=== PATIENT | male | born 1950 | race Caucasian/White ===

== ENCOUNTER 2018-01-22 18:07 | Emergency (ER) | payer OTHER, MEDICARE ==
[2018-01-22 19:07] LABS: Urine Bacteria >50 /HPF (NONE SEEN); Urine Culture Reflex Order REFLEXED
[2018-01-22] MEDS ORDERED: MORPHINE 4 MG/ML SYR ONE (19:12)
[2018-01-22] MEDS ORDERED: ONDANSETRON 4 MG/2 ML VIAL ONE (19:12)
[2018-01-22 19:14] LABS: Urine Glucose 2+ (NEG)
[2018-01-22 19:20] LABS: Urine Blood TRACE (NEG); Urine Protein NEGATIVE (NEG)
[2018-01-22 19:30] LABS: Absolute Lymphocytes (CBC) 0.7 K/uL (0.7-4.9); Absolute Neutrophil 13.4 K/uL (1.8-8.0); Basophils % 0.3 % (0-1.3); Eosinophils % 0.3 % (0-4.4); Hematocrit 45.8 % (39.6-49.0); Lymphocytes % 4.5 % (15.3-44.8); MCH 28.2 pg (27.0-35.0); MCV 86.2 fL (80-100); MPV 9.9 fL (7.6-11.3); Monocytes % 6.5 % (3.3-12.3); RBC Red Blood Cell Count 5.31 M/uL (4.33-5.43)
[2018-01-22 19:40] LABS: Potassium 3.7 mEq/L (3.6-5.0)
[2018-01-22 19:46] LABS: Albumin 4.2 g/dL (3.2-5.5); Bilirubin Direct 0.4 mg/dL (0-0.2); Protein, Total 7.4 g/dL (6.0-8.3)
--- NOTE | 2018-01-22 21:24 | ER ---
Nurse's Notes [facility] Name: Rajat Aguero Age: 67 yrs Sex: Male : 1950 Arrival Date: 01/22/2018 Time: 18:10 Bed 23 Private MD: Son Duval Diagnosis: Urinary tract infection, site not specified Presentation: 01/22 18:12 Presenting complaint: Patient states: burning with urination and urinary incontinence la1 since last night with chills. Transition of care: patient was not received from another setting of care. Onset of symptoms was January 22, 2018. Initial Sepsis Screen: Does the patient meet any 2 criteria? No. Patient's initial sepsis screen is negative. Does the patient have a suspected source of infection? No. Patient's initial sepsis screen is negative. Care prior to arrival: None. 18:12 Method Of Arrival: Ambulatory la1 18:12 Acuity: JOSSY 3 la1 Historical: - Allergies: 18:13 No Known Allergies; la1 - PMHx: 18:13 Bydureon Pen Injector; Diabetes - NIDDM; GERD; la1 - Immunization history:: Adult Immunizations up to date. - Social history:: Smoking status: Patient/guardian denies using tobacco. Screenin:30 Abuse screen: Denies threats or abuse. Nutritional screening: No deficits noted. tl3 Tuberculosis screening: No symptoms or risk factors identified. Fall Risk None identified. Assessment: 18:30 General: Appears distressed, uncomfortable, well groomed, well developed, well tl3 nourished, Behavior is calm, cooperative, appropriate for age. Pain: Complains of pain in pelvis. Neuro: Level of Consciousness is awake, alert, obeys commands, Oriented to person, place, time, situation, Appropriate for age. Cardiovascular: Heart tones S1 S2 present Patient's skin is warm and dry. Respiratory: Airway is patent Trachea midline Respiratory effort is even, unlabored, Respiratory pattern is regular, symmetrical. GI: No signs and/or symptoms were reported involving the gastrointestinal system. : Reports urgency, since yesterday urinary frequency. EENT: No signs and/or symptoms were reported regarding the EENT system. Derm: No signs and/or symptoms reported regarding the dermatologic system. Musculoskeletal: No signs and/or symptoms reported regarding the musculoskeletal system. 20:17 Reassessment: Patient appears in no apparent distress at this time. No changes from tl3 previously documented assessment. Patient and/or family updated on plan of care and expected duration. Pain level reassessed. Patient is alert, oriented x 3, equal unlabored respirations, skin warm/dry/pink. pt states that pain med relieved pain somewhat, lights dimmed, no needs or complaints at this time. 22:08 Reassessment: awaiting for abx to complete before discharge. tl3 22:33 Reassessment: Patient appears in no apparent distress at this time. No changes from tl3 previously documented assessment. Patient and/or family updated on plan of care and expected duration. Pain level reassessed. Patient is alert, oriented x 3, equal unlabored respirations, skin warm/dry/pink. Vital Signs: 18:13 BP 126 / 72; Pulse 92; Resp 19; Temp 97.8(TE); Pulse Ox 96% on R/A; Weight 129.27 kg; la1 Height 6 ft. 0 in. (182.88 cm); 20:17 BP 118 / 72; Pulse 86; Resp 16; Pulse Ox 96% ; tl3 22:33 BP 118 / 73; Pulse 84; Resp 18; Pulse Ox 100% on R/A; tl3 18:13 Body Mass Index 38.65 (129.27 kg, 182.88 cm) la1 ED Course: 18:10 Patient arrived in ED. mr 18:10 Son Duval MD is Private Physician. mr 18:13 Triage completed. la1 18:13 Arm band placed on left wrist. la1 18:15 [facility] Sharpe [facility]. cp 18:15 Alonzo Jacobs MD is Attending Physician. cp 18:30 Nery Kendrick, SONJA is Primary Nurse. tl3 18:30 No apparent distress. Awaiting ED provider evaluation. tl3 18:30 Patient has correct armband on for positive identification. Bed in low position. Call tl3 light in reach. Side rails up X 1. Adult w/ patient. 18:30 No provider procedures requiring assistance completed. tl3 18:30 Urine collected: clean catch specimen, clear. tl3 18:33 Urine Microscopic Only Sent. tl3 20:17 Inserted saline lock: 18 gauge in right forearm, using aseptic technique. Blood tl3 collected. 21:10 CT Abd/Pelvis - W/Contrast In Process Unspecified. EDMS 21:10 CT completed. Patient tolerated procedure well. Patient moved to CT. Patient moved back jg1 from CT. 21:22 Rhys Rowe MD is Referral Physician. cp 22:04 Son Duval MD is Referral Physician. cp 22:33 IV discontinued, intact, bleeding controlled, No redness/swelling at site. Pressure tl3 dressing applied. Administered Medications: 19:20 Drug: morphine 4 mg Route: IVP; Site: right forearm; rk2 20:21 Follow up: Response: No adverse reaction; Marked relief of symptoms tl3 19:20 Drug: Zofran 4 mg Route: IVP; Site: right forearm; rk2 20:21 Follow up: Response: No adverse reaction; Marked relief of symptoms tl3 21:53 Drug: Rocephin - (cefTRIAXone) 2 grams Route: IVPB; Infused Over: 30 mins; Site: right tl3 forearm; Delivery: Primary tubing; 22:33 Follow up: IV Status: Completed infusion; IV Intake: 120ml tl3 22:04 CANCELLED (Physician Discretion): LevaQUIN 750 mg PO once cp Intake: 22:33 IV: 120ml; Total: 120ml. tl3 Outcome: 21:24 Discharge ordered by MD. cp 22:04 Discharge ordered by MD. cp 22:33 Discharged to home ambulatory. tl3 22:33 Condition: stable 22:33 Discharge instructions given to patient, family, Instructed on discharge instructions, follow up and referral plans. medication usage, Demonstrated understanding of instructions, follow-up care, medications, Prescriptions given X 3. 22:35 Patient left the ED. tl3 Signatures: Dispatcher [employer] EDFL Ana Mckeon mr Torres Purvi jg1 Jonathan Reagan, RN RN la1 Alonzo Sharpe PA PA cp Rosalinda Guillory RN RN rk2 Nery Kendrick RN RN tl3
--- NOTE | 2018-01-22 21:24 | EDPHYS ---
Physician Documentation [facility] Name: Rajat Aguero Age: 67 yrs Sex: Male : 1950 Arrival Date: 01/22/2018 Time: 18:10 Bed 23 Private MD: Son Duval ED Physician Alonzo Jacobs HPI: 01/22 18:25 This 67 yrs old Male presents to ER via Ambulatory with complaints of Urinary cp Problem. 18:25 The patient presents with abdominal pain in the lower abdomen. cp 18:25 Onset: The symptoms/episode began/occurred yesterday. The symptoms do not radiate. cp Associated signs and symptoms: Pertinent positives: dysuria, Pertinent negatives: blood in stools, constipation, diarrhea, fever, testicular pain, vomiting. The symptoms are described as constant. Modifying factors: the symptoms are aggravated by pressure. Severity of pain: in the emergency department the pain is unchanged despite home interventions. Historical: - Allergies: 18:13 No Known Allergies; la1 - PMHx: 18:13 Bydureon Pen Injector; Diabetes - NIDDM; GERD; la1 - Immunization history:: Adult Immunizations up to date. - Social history:: Smoking status: Patient/guardian denies using tobacco. ROS: 18:30 Constitutional: Positive for chills, Negative for body aches, fever, poor PO intake. cp 18:30 Eyes: Negative for injury, pain, redness, and discharge. cp 18:30 ENT: Negative for drainage from ear(s), ear pain, sore throat, difficulty swallowing, difficulty handling secretions. 18:30 Neck: Negative for pain with movement, pain at rest, stiffness, tenderness. 18:30 Cardiovascular: Negative for chest pain, edema, palpitations. 18:30 Respiratory: Negative for cough, shortness of breath, wheezing. 18:30 Abdomen/GI: Positive for abdominal pain, nausea, of the suprapubic area, Negative for vomiting, diarrhea, constipation, anorexia, black/tarry stool, rectal bleeding. 18:30 Back: Negative for radiated pain. 18:30 : Positive for urinary symptoms, Negative for testicular pain 18:30 MS/extremity: Negative for injury or acute deformity, decreased range of motion, paresthesias. 18:30 Skin: Negative for cellulitis, rash. 18:30 Neuro: Negative for altered mental status, headache, weakness. 18:30 All other systems are negative. Exam: 18:35 Constitutional: The patient appears in no acute distress, alert, awake, cp non-diaphoretic, non-toxic, well developed, well nourished, obese, uncomfortable. 18:35 Head/Face: Normocephalic, atraumatic. cp 18:35 Eyes: Pupils equal round and reactive to light, extra-ocular motions intact. Lids and lashes normal. Conjunctiva and sclera are non-icteric and not injected. Cornea within normal limits. Periorbital areas with no swelling, redness, or edema. ENT: Nares patent. No nasal discharge, no septal abnormalities noted. Tympanic membranes are normal and external auditory canals are clear. Oropharynx with no redness, swelling, or masses, exudates, or evidence of obstruction, uvula midline. Mucous membranes moist. Neck: Trachea midline, no thyromegaly or masses palpated, and no cervical lymphadenopathy. Supple, full range of motion without nuchal rigidity, or vertebral point tenderness. No Meningismus. Chest/axilla: Normal chest wall appearance and motion. Nontender with no deformity. No lesions are appreciated. 18:35 Cardiovascular: Rate: normal, Rhythm: regular, Edema: is not appreciated, JVD: is not appreciated. 18:35 Respiratory: the patient does not display signs of respiratory distress, Respirations: normal, no use of accessory muscles, no retractions, no splinting, no tachypnea, labored breathing, is not present, Breath sounds: are clear throughout, no decreased breath sounds, no stridor, no wheezing. 18:35 Abdomen/GI: Inspection: distension, is not seen, obese Bowel sounds: active, all quadrants, Palpation: soft, in all quadrants, moderate abdominal tenderness, in the right lower quadrant and left lower quadrant, rebound tenderness, is not appreciated, involuntary guarding, is not appreciated. 18:35 Back: pain, is absent, ROM is normal, CVA tenderness, is absent. 18:35 Skin: cellulitis, is not appreciated, no rash present. Vital Signs: 18:13 BP 126 / 72; Pulse 92; Resp 19; Temp 97.8(TE); Pulse Ox 96% on R/A; Weight 129.27 kg; la1 Height 6 ft. 0 in. (182.88 cm); 20:17 BP 118 / 72; Pulse 86; Resp 16; Pulse Ox 96% ; tl3 22:33 BP 118 / 73; Pulse 84; Resp 18; Pulse Ox 100% on R/A; tl3 18:13 Body Mass Index 38.65 (129.27 kg, 182.88 cm) la1 MDM: 18:15 Patient medically screened. cp 19:00 Differential diagnosis: diverticulitis, Prostatitis, Pyelonephritis, Testicular cp Torsion, Ureterolithiasis, urinary tract infection. 22:00 Data reviewed: vital signs, nurses notes, lab test result(s), radiologic studies, CT cp scan. 22:00 Counseling: I had a detailed discussion with the patient and/or guardian regarding: the cp historical points, exam findings, and any diagnostic results supporting the discharge/admit diagnosis, lab results, radiology results, the need for outpatient follow up, a family practitioner, to return to the emergency department if symptoms worsen or persist or if there are any questions or concerns that arise at home. Response to treatment: the patient's symptoms have markedly improved after treatment, and as a result, I will discharge patient. 01/22 18:23 Order name: Urine Microscopic Only; Complete Time: 19:38 cp / 19:38 Interpretation: Normal except: UWBC 5-10; URBC 5-10; UBACT >50; SQEPI 5-10. cp 01/22 18:36 Order name: Amylase, Serum; Complete Time: 20:51 01/22 18:36 Order name: Basic Metabolic Panel; Complete Time: 20:51 01/22 20:52 Interpretation: Normal except: NA 134; CO2 20; GLUC 197; GFR 87. 01/22 18:36 Order name: CBC with Diff; Complete Time: 19:38 cp /12 19:38 Interpretation: Normal except: WBC 15.2; PLT 129; MIMI% 88.4; LYM% 4.5; NEUT A 13.4. 01/22 18:36 Order name: Creatinine for Radiology; Complete Time: 20:51 cp 01/22 20:52 Interpretation: Reviewed. 01/22 18:36 Order name: Hepatic Function; Complete Time: 20:51 cp 01/22 20:52 Interpretation: Normal except: BILIT 2.0; BILID 0.4. cp 01/22 18:36 Order name: Lipase; Complete Time: 20:51 cp 01/22 20:54 Interpretation: LIP 22; Reviewed. cp 01/22 18:45 Order name: Urine Dipstick--Ancillary (enter results); Complete Time: 19:38 ag 01/22 19:39 Interpretation: Normal except: UKET 2+; UBLD TRACE. cp 01/22 19:07 Order name: CT Abd/Pelvis - W/Contrast; Complete Time: 21:38 cp 01/22 19:08 Order name: Urine Culture EDMS 01/22 18:23 Order name: Urine Dipstick-Ancillary (obtain specimen); Complete Time: 18:33 cp 01/22 18:36 Order name: IV Saline Lock; Complete Time: 19:21 cp 01/22 18:36 Order name: Labs collected and sent; Complete Time: 19:21 cp Administered Medications: 19:20 Drug: morphine 4 mg Route: IVP; Site: right forearm; rk2 20:21 Follow up: Response: No adverse reaction; Marked relief of symptoms tl3 19:20 Drug: Zofran 4 mg Route: IVP; Site: right forearm; rk2 20:21 Follow up: Response: No adverse reaction; Marked relief of symptoms tl3 21:53 Drug: Rocephin - (cefTRIAXone) 2 grams Route: IVPB; Infused Over: 30 mins; Site: right tl3 forearm; Delivery: Primary tubing; 22:33 Follow up: IV Status: Completed infusion; IV Intake: 120ml tl3 22:04 CANCELLED (Physician Discretion): LevaQUIN 750 mg PO once cp Disposition: 01/22/18 22:04 Discharged to Home. Impression: Urinary tract infection, site not specified. - Condition is Stable. - Discharge Instructions: Urinary Tract Infection. - Prescriptions for Levaquin 750 mg Oral Tablet - take 1 tablet by ORAL route once daily for 10 days; 10 tablet. Zofran 4 mg Oral Tablet - take 1 tablet by ORAL route every 12 hours As needed; 20 tablet. Tylenol- Codeine #3 300-30 mg Oral Tablet - take 2 tablets by ORAL route every 6 hours As needed; 15 tablet. - Medication Reconciliation Form, Thank You Letter, Antibiotic Education, Prescription Opioid Use form. - Follow up: Son Duval MD; When: 1 - 2 days; Reason: Recheck today's complaints. - Problem is new. - Symptoms have improved. Addendum: 01/24/2018 09:04 Co-signature as Attending Physician, Alonzo Jacobs MD I agree with the assessment and c godinez plan of care. Signatures: Dispatcher [employer] EDAlonzo Levi MD MD cha Attema, Lee, RN RN la1 Alonzo Sharpe PA PA cp Rosalinda Guillory, RN RN rk2 Nery Kendrick RN RN tl3 Corrections: (The following items were deleted from the chart) 01/22 21:24 21:24 01/22/2018 21:24 Discharged to Home. Impression: Unspecified fracture of right cp forearm - Transverse Midshaft of Radius and Ulna. Condition is Stable. Forms are Medication Reconciliation Form, Thank You Letter, Antibiotic Education, Prescription Opioid Use. Follow up: Rhys Rowe; When: 2 - 3 days; Reason: right forearm fracture. Problem is new. Symptoms have improved. cp 22:04 22:03 LevaQUIN 750 mg PO once ordered. cp cp 22:35 22:04 01/22/2018 22:04 Discharged to Home. Impression: Urinary tract infection, site tl3 not specified. Condition is Stable. Forms are Medication Reconciliation Form, Thank You Letter, Antibiotic Education, Prescription Opioid Use. Follow up: Son Duval; When: 1 - 2 days; Reason: Recheck today's complaints. Problem is new. Symptoms have improved. cp
--- NOTE | 2018-01-22 21:36 | RAD REPORT ---
EXAM DESCRIPTION: CT - Abdomen Pelvis W Contrast - 01/22/2018 9:10 pm CLINICAL HISTORY: Abdominal pain, dysuria, incontinence COMPARISON: CT imaging May 2015 TECHNIQUE: Biphasic, helical CT imaging of the abdomen and pelvis was performed following 100 ml non -ionic IV contrast. Oral contrast was given. All CT scans are performed using dose optimization technique as appropriate and may include automated exposure control or mA/KV adjustment according to patient size. FINDINGS: No suspicious findings in the lung bases. Liver shows diffuse fatty infiltration with no focal liver lesion. Spleen and pancreas show no suspic ious findings. Cholecystectomy clips are present with normal size biliary tree. Symmetric renal function is seen with no hydronephrosis or suspicious renal mass. No pyelonephritis o r acute renal parenchymal process. No abnormal perinephric stranding. Adrenal glands are unremarkable . Urinary bladder is mostly contracted. The urinary bladder is partially obscured. 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 There is a minimal amount of strand ing in the fat adjacent to the dome of the urinary bladder. No dilated bowel loops or bowel wall thickening. No appendicitis. An acute GI process is not identifi ed. Portions of the distal rectum are obscured by the hip prosthesis spray artifact. No free air, helene e fluid or pneumatosis. No mass or bulky lymphadenopathy. No suspicious bony findings. IMPRESSION: No pyelonephritis or acute renal parenchymal process. No hydronephrosis or obstructing c alculus. Urinary bladder is mostly contracted limiting detail. Detail is further limited by bilateral hip pros thesis spray artifact. Cystitis or prostatitis are not excluded. No acute GI process identifiable. Pronounced fatty infiltration of the liver.
[2018-01-22] MEDS ORDERED: CEFTRIAXONE 1000 MG/VIAL ONE (21:47)
[2018-01-22 22:41] VITALS: TEMP 97.8
[2018-01-22 22:43] VITALS: BP 118/73; O2SAT 100
== END 2018-01-22 22:35 | disposition home or self-care (01) ==
LOC: ER 18:07
DX: N39.0 Urinary tract infection, site not specified (principal); E11.9 Type 2 diabetes mellitus without complications
CPT/HCPCS: 36415; 74177; 80048; 80076; 82150; 83690; 85025; 87077; 87086; 87088; 87186; 96365; 96375; 99284; J2405; Q9967; 81003; 81015

== ENCOUNTER 2019-06-09 18:10 | Emergency (ER) | payer OTHER, MEDICARE ==
--- NOTE | 2019-06-09 18:54 | EDPHYS ---
Physician Documentation [facility] Name: Rajat Aguero Age: 68 yrs Sex: Male : 1950 Arrival Date: 06/09/2019 Time: 18:14 Bed 23 Private MD: Son Duval ED Physician Hill Danielle HPI: 06/09 18:41 This 68 yrs old Male presents to ER via Ambulatory with complaints of kb Infected toe. 18:44 The patient presents with an abrasion, an injury, pain, that is acute, tenderness. The kb complaints affect the left first toe. Context: The problem was sustained at home, resulted from stubbing toe on furniture. the patient can fully bear weight, the patient is able to ambulate. Onset: The symptoms/episode began/occurred 3 day(s) ago. 18:46 Modifying factors: The symptoms are alleviated by nothing, the symptoms are aggravated kb by nothing. Associated signs and symptoms: Pertinent positives: swelling. Severity of symptoms: At their worst the symptoms were moderate, in the emergency department the symptoms are unchanged. The patient has not experienced similar symptoms in the past. The patient has not recently seen a physician. Pt reports he stubbed his toe on a piece of furniture 3 days ago resulting in an abrasion to top of toe. Today noticed redness to toe and black under the nail. Pain/tenderness to outer area of toe. Historical: - Allergies: 18:27 No Known Allergies; aj1 - Home Meds: 18:27 Bydureon subcutaneous subcutaneous [Active]; metformin 1,000 mg Oral tr24 2 tabs once aj1 daily [Active]; lansoprazole 30 mg Oral cpDR 1 cap once daily [Active]; Jardiance 25 mg oral tab 1 tab once daily [Active]; Cholestyramine Light 4 gram oral pwpk 1 packet once daily [Active]; gabapentin 100 mg oral cap 1 caps as needed at bedtime [Active]; Nasonex 50 mcg/actuation Nasal spry 2 sprays once daily [Active]; clobetasol 0.05 % Topical crea as needed [Active]; multivitamin oral oral daily [Active]; quecertin 500 mg [Active]; L-Lysine Oral 1,000 mg [Active]; - PMHx: 18:27 Diabetes - NIDDM; GERD; aj1 - 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 - Social history:: Smoking status: Patient/guardian denies using tobacco. - Ebola Screening: : Patient denies travel to an Ebola-affected area in the 21 days before illness onset. ROS: 18:49 Constitutional: Negative for fever, chills, and weight loss, ENT: Negative for injury, kb pain, and discharge, Neck: Negative for injury, pain, and swelling, Cardiovascular: Negative for chest pain, palpitations, and edema, Respiratory: Negative for shortness of breath, cough, wheezing, and pleuritic chest pain, Abdomen/GI: Negative for abdominal pain, nausea, vomiting, diarrhea, and constipation, Back: Negative for injury and pain, Neuro: Negative for headache, weakness, numbness, tingling, and seizure. 18:49 Skin: Positive for erythema, swelling, of the left first toe. Exam: 18:49 Constitutional: This is a well developed, well nourished patient who is awake, alert, kb and in no acute distress. Head/Face: Normocephalic, atraumatic. Chest/axilla: Normal chest wall appearance and motion. Nontender with no deformity. No lesions are appreciated. Cardiovascular: Regular rate and rhythm with a normal S1 and S2. No gallops, murmurs, or rubs. Normal PMI, no JVD. No pulse deficits. Respiratory: Lungs have equal breath sounds bilaterally, clear to auscultation and percussion. No rales, rhonchi or wheezes noted. No increased work of breathing, no retractions or nasal flaring. Abdomen/GI: Soft, non-tender, with normal bowel sounds. No distension or tympany. No guarding or rebound. No evidence of tenderness throughout. Neuro: Awake and alert, GCS 15, oriented to person, place, time, and situation. Cranial nerves II-XII grossly intact. Motor strength 5/5 in all extremities. Sensory grossly intact. Cerebellar exam normal. Normal gait. 18:49 Musculoskeletal/extremity: Weight bearing: able to fully bear weight, Nails: Subungual hematoma, of the left first toe. 18:49 Skin: cellulitis, that is minimal, on the left first toe, injury, abrasion(s), very small abrasion noted, of the left first toe. Vital Signs: 18:27 BP 141 / 78; Pulse 72; Resp 18; Temp 97.2; Pulse Ox 98% on R/A; Weight 131.54 kg (R); aj1 Height 6 ft. 0 in. (182.88 cm) (R); Pain 3/10; 19:00 BP 140 / 70; Pulse 71; Resp 18; Temp 97.5; Pulse Ox 100% on R/A; mg2 18:27 Body Mass Index 39.33 (131.54 kg, 182.88 cm) aj1 MDM: 18:29 Patient medically screened. kb 18:42 Data reviewed: vital signs, nurses notes. Data interpreted: Pulse oximetry: on room air kb is 98 %. Interpretation: normal. Counseling: I had a detailed discussion with the patient and/or guardian regarding: the historical points, exam findings, and any diagnostic results supporting the discharge/admit diagnosis, the need for outpatient follow up, a family practitioner, to return to the emergency department if symptoms worsen or persist or if there are any questions or concerns that arise at home. ED course: subungual hematoma drained by making small hole in top of nail with 18G needle. Administered Medications: 19:02 Drug: Bactrim (160 mg-800 mg (DS) 1 tablet Route: PO; mg2 19:03 Follow up: Response: No adverse reaction; Medication administered at discharge. mg2 19:02 Drug: KeFLEX 500 mg Route: PO; mg2 19:02 Follow up: Response: No adverse reaction; Medication administered at discharge. mg2 Disposition: 06/09/19 18:53 Discharged to Home. Impression: Abrasion of toe, Local infection of the skin and subcutaneous tissue, unspecified, Subungual hematoma. - Condition is Stable. - Discharge Instructions: Cellulitis, Adult, [id number], Wound Infection, [id number], Subungual Hematoma, [id number]. - Prescriptions for Bactrim DS 800- 160 mg Oral Tablet - take 1 tablet by ORAL route every 12 hours for 7 days; 14 tablet. Keflex 500 mg Oral Capsule - take 1 capsule by ORAL route every 8 hours for 7 days; 21 capsule. - Medication Reconciliation Form, Thank You Letter, Antibiotic Education, Prescription Opioid Use form. - Follow up: Private Physician; When: 2 - 3 days; Reason: Recheck today's complaints, Continuance of care, Re-evaluation by your physician. Follow up: Emergency Department; When: As needed; Reason: Worsening of condition. Addendum: 06/12/2019 06:59 Co-signature as Attending Physician, Hill Danielle MD. r n Signatures: Jocelyne Bella, NURIS-C TOOL CRIB SUPERVISOR-Ckb Tatyana Argueta RN RN aj1 Hill Danielle MD MD rn Gardose, Michele, RN RN mg2 Corrections: (The following items were deleted from the chart) 06/09 18:49 18:44 Onset: The symptoms/episode began/occurred 2 day(s) ago, kb kb 18:50 18:46 Pt reports he stubbed his toe on a piece of furniture 3 days ago resulting in an kb abrasion to top of toe. Today noticed redness to toe and black under the nail. . kb 19:03 18:53 06/09/2019 18:53 Discharged to Home. Impression: Abrasion of toe; Local infection mg2 of the skin and subcutaneous tissue, unspecified; Subungual hematoma. Condition is Stable. Forms are Medication Reconciliation Form, Thank You Letter, Antibiotic Education, Prescription Opioid Use. Follow up: Private Physician; When: 2 - 3 days; Reason: Recheck today's complaints, Continuance of care, Re-evaluation by your physician. Follow up: Emergency Department; When: As needed; Reason: Worsening of condition. kb
--- NOTE | 2019-06-09 18:54 | ER ---
Nurse's Notes [facility] Name: Rajat Aguero Age: 68 yrs Sex: Male : 1950 Arrival Date: 06/09/2019 Time: 18:14 Bed 23 Private MD: Son Duval Diagnosis: Abrasion of toe;Local infection of the skin and subcutaneous tissue, unspecified;Subungual hematoma Presentation: 06/09 18:22 Presenting complaint: Patient states: He kicked something with his left great toe 3 aj1 days ago, he got a small cut to the toe, and its been tender since then. Yesterday he noticed bruising to the toe and today he noticed redness and swelling. Denies fever. Transition of care: patient was not received from another setting of care. Onset of symptoms was June 09, 2019. Risk Assessment: Do you want to hurt yourself or someone else? Patient reports no desire to harm self or others. Initial Sepsis Screen: Does the patient meet any 2 criteria? No. Patient's initial sepsis screen is negative. Does the patient have a suspected source of infection? Yes: Skin breakdown/wound. Care prior to arrival: None. 18:22 Method Of Arrival: Ambulatory aj1 18:22 Acuity: JOSSY 4 aj1 Triage Assessment: 18:27 General: Appears in no apparent distress. comfortable, Behavior is calm, cooperative, aj1 appropriate for age. Pain: Complains of pain in left first toe Pain currently is 3 out of 10 on a pain scale. Neuro: Level of Consciousness is awake, alert, obeys commands. Cardiovascular: Patient's skin is warm and dry. Respiratory: Airway is patent Respiratory effort is even, unlabored, Respiratory pattern is regular, symmetrical. Historical: - Allergies: 18:27 No Known Allergies; aj1 - Home Meds: 18:27 Bydureon subcutaneous subcutaneous [Active]; metformin 1,000 mg Oral tr24 2 tabs once aj1 daily [Active]; lansoprazole 30 mg Oral cpDR 1 cap once daily [Active]; Jardiance 25 mg oral tab 1 tab once daily [Active]; Cholestyramine Light 4 gram oral pwpk 1 packet once daily [Active]; gabapentin 100 mg oral cap 1 caps as needed at bedtime [Active]; Nasonex 50 mcg/actuation Nasal spry 2 sprays once daily [Active]; clobetasol 0.05 % Topical crea as needed [Active]; multivitamin oral oral daily [Active]; quecertin 500 mg [Active]; L-Lysine Oral 1,000 mg [Active]; - PMHx: 18:27 Diabetes - NIDDM; GERD; aj1 - 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 - Social history:: Smoking status: Patient/guardian denies using tobacco. - Ebola Screening: : Patient denies travel to an Ebola-affected area in the 21 days before illness onset. Screenin:44 Abuse screen: Denies threats or abuse. Denies injuries from another. Nutritional mg2 screening: No deficits noted. Tuberculosis screening: No symptoms or risk factors identified. Fall Risk None identified. Assessment: 18:43 General: Appears in no apparent distress. comfortable, Behavior is calm, cooperative. mg2 Pain: Complains of pain in left first toe Pain does not radiate. Pain currently is 3 out of 10 on a pain scale. Quality of pain is described as aching, Pain began gradually, 2-3 days ago. Is intermittent. Neuro: Level of Consciousness is awake, alert, obeys commands, Oriented to person, place, time, situation. Cardiovascular: Capillary refill < 3 seconds Patient's skin is warm and dry. Respiratory: Airway is patent Respiratory effort is even, unlabored, Respiratory pattern is regular, symmetrical. GI: No signs and/or symptoms were reported involving the gastrointestinal system. : No signs and/or symptoms were reported regarding the genitourinary system. EENT: No signs and/or symptoms were reported regarding the EENT system. Derm: Skin is intact, is healthy with good turgor, Skin is pink, warm \T\ dry. normal, redness surrounding the left big toe. Musculoskeletal: Circulation, motion, and sensation intact. Capillary refill < 3 seconds. Vital Signs: 18:27 BP 141 / 78; Pulse 72; Resp 18; Temp 97.2; Pulse Ox 98% on R/A; Weight 131.54 kg (R); aj1 Height 6 ft. 0 in. (182.88 cm) (R); Pain 3/10; 19:00 BP 140 / 70; Pulse 71; Resp 18; Temp 97.5; Pulse Ox 100% on R/A; mg2 18:27 Body Mass Index 39.33 (131.54 kg, 182.88 cm) aj1 ED Course: 18:14 Patient arrived in ED. mr 18:15 Son Duval MD is Private Physician. mr 18:23 Triage completed. aj1 18:24 Jocelyne Bella F[facility]-C [facility]. kb 18:24 Hill Danielle MD is Attending Physician. kb 18:27 Arm band placed on Patient placed in an exam room. aj1 18:30 Sourav Ferrera, RN is Primary Nurse. mg2 18:44 No provider procedures requiring assistance completed. Patient did not have IV access mg2 during this emergency room visit. Wound care: boring a small hole was done in the left big toe to expressed blood underneath the toe done by the provider. . patient tolerated. dressing with betadine and band aid done.. 18:46 Patient has correct armband on for positive identification. mg2 Administered Medications: 19:02 Drug: Bactrim (160 mg-800 mg (DS) 1 tablet Route: PO; mg2 19:03 Follow up: Response: No adverse reaction; Medication administered at discharge. mg2 19:02 Drug: KeFLEX 500 mg Route: PO; mg2 19:02 Follow up: Response: No adverse reaction; Medication administered at discharge. mg2 Outcome: 18:53 Discharge ordered by . kb 19:03 Discharged to home ambulatory. mg2 19:03 Condition: stable 19:03 Discharge instructions given to patient, Instructed on discharge instructions, follow up and referral plans. Demonstrated understanding of instructions, follow-up care, medications. 19:03 Patient left the ED. mg2 Signatures: Jocelyne Bella FNP-C FNP-Tatyana Melo, RN RN aj1 Sera Mckeon mr Sourav Ferrera, SONJA RN mg2
[2019-06-09] MEDS ORDERED: SMZ./TMP. 800/160 MG TABLET ONE (18:58)
[2019-06-09] MEDS ORDERED: CEPHALEXIN 250 MG CAP ONE (18:59)
[2019-06-09 19:26] VITALS: BP 140/70; TEMP 97.5; O2SAT 100
== END 2019-06-09 19:03 | disposition home or self-care (01) ==
LOC: ER 18:10
PROC: 0H9RXZZ Drainage of Toe Nail, External Approach (ICD-10-PCS; principal; 2019-06-09)
DX: S90.212A Contusion of left great toe with damage to nail, initial encounter (principal); L08.9 Local infection of the skin and subcutaneous tissue, unspecified; W22.03XA Walked into furniture, initial encounter; Y93.9 Activity, unspecified; Y92.009 Unspecified place in unspecified non-institutional (private) residence as the place of occurrence of the external cause; E11.9 Type 2 diabetes mellitus without complications
CPT/HCPCS: 99283

== ENCOUNTER 2019-08-31 18:35 | Emergency (ER) | payer OTHER, MEDICARE ==
[2019-08-31] MEDS ORDERED: BUPIVACAINE 0.5% PF 10 ML VIAL ONE (18:45)
[2019-08-31] MEDS ORDERED: LIDOCAINE 1% MPF 5 ML VIAL ONE (18:46)
--- NOTE | 2019-08-31 19:24 | RAD REPORT ---
EXAM DESCRIPTION: RAD - Hand Left 3 View - 08/31/2019 7:11 pm CLINICAL HISTORY: PAIN COMPARISON: No comparisons FINDINGS: Dislocation is seen involving the PIP joint of the fifth finger. Small avulsion fracture i s present in the region as well.
[2019-08-31 20:25] LABS: Absolute Lymphocytes (CBC) 2.1 K/uL (0.7-4.9); Basophils % 0.8 % (0-1.3); Hematocrit 45.3 % (39.6-49.0); Lymphocytes % 31.4 % (15.3-44.8); MPV 9.9 fL (7.6-11.3); RBC Red Blood Cell Count 5.29 M/uL (4.33-5.43)
[2019-08-31] MEDS ORDERED: CEFAZOLIN/SWI 1gm 1 GM/10 ML SYR ONE (20:36)
[2019-08-31 20:42] LABS: Potassium 3.9 mmol/L (3.5-5.1)
--- NOTE | 2019-08-31 20:53 | ER ---
Nurse's Notes [facility] Name: Rajat Aguero Age: 68 yrs Sex: Male : 1950 Arrival Date: 08/31/2019 Time: 18:36 Bed 24 Private MD: Son Duval Diagnosis: Laceration without foreign body of left little finger without damage to nail;Dislocation of proximal interphalangeal joint of left little finger-with avulsion fracture Presentation: 08/31 18:42 Presenting complaint: Patient states: L fifth digit pain and laceration that occurred ss after tripping this evening. Transition of care: patient was not received from another setting of care. Onset of symptoms was August 31, 2019. Risk Assessment: Do you want to hurt yourself or someone else? Patient reports no desire to harm self or others. Initial Sepsis Screen: Does the patient meet any 2 criteria? No. Patient's initial sepsis screen is negative. Does the patient have a suspected source of infection? No. Patient's initial sepsis screen is negative. Care prior to arrival: None. 18:42 Method Of Arrival: Ambulatory ss 18:42 Acuity: JOSSY 4 ss Triage Assessment: 21:43 Injury Description: Laceration. tr5 Historical: - Allergies: 18:45 No Known Allergies; ss - PMHx: 18:45 Diabetes - NIDDM; GERD; ss - PSHx: 18:45 2 atrificial hip joints; Cholecystectomy; ss - Immunization history:: Adult Immunizations up to date. - Social history:: Smoking status: Patient/guardian denies using tobacco. - Ebola Screening: : Patient denies exposure to infectious person Patient denies travel to an Ebola-affected area in the 21 days before illness onset. Screenin:48 Abuse screen: Denies threats or abuse. Nutritional screening: No deficits noted. tr5 Tuberculosis screening: No symptoms or risk factors identified. Fall Risk None identified. Assessment: 18:48 General: Appears uncomfortable, Behavior is calm, cooperative, appropriate for age. tr5 Pain: Complains of pain in L 5th digit. Neuro: Level of Consciousness is awake, alert, obeys commands, Oriented to person, place, time, Chronometer Assembler And Adjuster are equal bilaterally Moves all extremities. Cardiovascular: Heart tones present Capillary refill < 3 seconds Pulses are all present. Respiratory: Airway is patent Respiratory effort is even, unlabored, Respiratory pattern is regular, symmetrical. GI: No signs and/or symptoms were reported involving the gastrointestinal system. : No signs and/or symptoms were reported regarding the genitourinary system. EENT: No signs and/or symptoms were reported regarding the EENT system. Derm: No signs and/or symptoms reported regarding the dermatologic system. Musculoskeletal: Swelling present in left hand, 5th digit. Vital Signs: 18:45 BP 94 / 75; Pulse 76; Resp 16; Pulse Ox 98% on R/A; Weight 131.54 kg; Height 6 ft. 0 ss in. (182.88 cm); Pain 7/10; 18:59 Temp 98.9(O); jp3 18:45 Body Mass Index 39.33 (131.54 kg, 182.88 cm) ss ED Course: 18:36 Patient arrived in ED. ag5 18:37 Son Duval MD is Private Physician. ag5 18:38 Jocelyne Bella FNP-C [facility]. kb 18:38 Hill Danielle MD is Attending Physician. kb 18:42 Gonzalez Mcleod RN is Primary Nurse. tr5 18:44 Triage completed. ss 18:45 Arm band placed on right wrist. ss 18:48 Bed in low position. Call light in reach. Side rails up X 1. tr5 19:00 Patient maintains SpO2 saturation greater than 95% on room air. jp3 19:09 Hand Left 3 View XRAY In Process Unspecified. EDMS 19:40 Wound care: to laceration located on palmar aspect of proximal phalanx of left little jp3 finger was soaked in 50/50 betadine and normal saline Patient tolerated well. 21:15 Assist provider with laceration repair. tr5 21:42 Patient did not have IV access during this emergency room visit. tr5 Administered Medications: 18:45 Drug: Lidocaine (1 %) 1 vials Volume: 5 ml; Route: Infiltration; tr5 18:45 Drug: Marcaine (0.5 %) 1 vials Volume: 10 ml; Route: Infiltration; tr5 20:35 Drug: Ancef 1 grams Route: IVPB; Site: right antecubital; tr5 Outcome: 21:42 Discharged to home ambulatory. tr5 21:42 Condition: stable 21:42 Discharge instructions given to patient, family, Instructed on discharge instructions, follow up and referral plans. 21:44 Patient left the ED. tr5 Signatures: Dispatcher [employer] Jocelyne Quinteros, BLAIR LAWLER-Stacy Sharma RN RN Damaso Capone 3 Arnel Shane5 Gonzalez Mcleod RN RN tr5
--- NOTE | 2019-08-31 20:53 | EDPHYS ---
Physician Documentation [facility] Name: Rajat Aguero Age: 68 yrs Sex: Male : 1950 Arrival Date: 08/31/2019 Time: 18:36 Bed 24 Private MD: Son Duval ED Physician Hill Danielle HPI: 08/31 19:12 This 68 yrs old Male presents to ER via Ambulatory with complaints of Hand kb Injury, Fall Injury. 19:12 The patient or guardian reports decreased range of motion, deformity, injury, a kb laceration, irregular, 3 cm(s), pain, swelling, tenderness. The complaints affect the palmar aspect of proximal phalanx of left little finger. Context: The problem was sustained at home, resulted from a fall, while walking. Onset: The symptoms/episode began/occurred just prior to arrival. Modifying factors: The symptoms are alleviated by nothing, the symptoms are aggravated by movement. Associated signs and symptoms: The patient has no apparent associated signs or symptoms. Severity of symptoms: At their worst the symptoms were moderate, in the emergency department the symptoms are unchanged. The patient has not experienced similar symptoms in the past. The patient has not recently seen a physician. Pt reports his house is under construction so there is equipment and materials out. Turned off the light and walked towards the door to leave, tripped and fell. Reports laceration and deformity to left pinky finger. . Historical: - Allergies: 18:45 No Known Allergies; ss - PMHx: 18:45 Diabetes - NIDDM; GERD; ss - PSHx: 18:45 2 atrificial hip joints; Cholecystectomy; ss - Immunization history:: Adult Immunizations up to date. - Social history:: Smoking status: Patient/guardian denies using tobacco. - Ebola Screening: : Patient denies exposure to infectious person Patient denies travel to an Ebola-affected area in the 21 days before illness onset. ROS: 19:08 Constitutional: Negative for fever, chills, and weight loss, ENT: Negative for injury, kb pain, and discharge, Neck: Negative for injury, pain, and swelling, Cardiovascular: Negative for chest pain, palpitations, and edema, Respiratory: Negative for shortness of breath, cough, wheezing, and pleuritic chest pain, Abdomen/GI: Negative for abdominal pain, nausea, vomiting, diarrhea, and constipation, Back: Negative for injury and pain, Neuro: Negative for headache, weakness, numbness, tingling, and seizure. 19:08 MS/extremity: Positive for injury or acute deformity, decreased range of motion, deformity, laceration, pain, swelling, tenderness, of the palmar aspect of proximal phalanx of left little finger. Exam: 19:11 Constitutional: This is a well developed, well nourished patient who is awake, alert, kb and in no acute distress. Head/Face: Normocephalic, atraumatic. ENT: Nares patent. No nasal discharge, no septal abnormalities noted. Tympanic membranes are normal and external auditory canals are clear. Oropharynx with no redness, swelling, or masses, exudates, or evidence of obstruction, uvula midline. Mucous membranes moist. Neck: Trachea midline, no thyromegaly or masses palpated, and no cervical lymphadenopathy. Supple, full range of motion without nuchal rigidity, or vertebral point tenderness. No Meningismus. Chest/axilla: Normal chest wall appearance and motion. Nontender with no deformity. No lesions are appreciated. Cardiovascular: Regular rate and rhythm with a normal S1 and S2. No gallops, murmurs, or rubs. Normal PMI, no JVD. No pulse deficits. Respiratory: Lungs have equal breath sounds bilaterally, clear to auscultation and percussion. No rales, rhonchi or wheezes noted. No increased work of breathing, no retractions or nasal flaring. Abdomen/GI: Soft, non-tender, with normal bowel sounds. No distension or tympany. No guarding or rebound. No evidence of tenderness throughout. Neuro: Awake and alert, GCS 15, oriented to person, place, time, and situation. Cranial nerves II-XII grossly intact. Motor strength 5/5 in all extremities. Sensory grossly intact. Cerebellar exam normal. Normal gait. 19:11 Musculoskeletal/extremity: Extremities: grossly normal except: noted in the palmar aspect of proximal phalanx of left little finger: decreased ROM, deformity, laceration, pain, swelling, tenderness, ROM: limited active range of motion, in the left little finger, Circulation is intact in all extremities. Sensation intact. Vital Signs: 18:45 BP 94 / 75; Pulse 76; Resp 16; Pulse Ox 98% on R/A; Weight 131.54 kg; Height 6 ft. 0 ss in. (182.88 cm); Pain 7/10; 18:59 Temp 98.9(O); jp3 18:45 Body Mass Index 39.33 (131.54 kg, 182.88 cm) ss Procedures: 19:03 Nerve block: (digital) of palmar aspect of proximal phalanx of left little finger kb Medication: Lidocaine 1% without epinephrine Marcaine 0.5%, Amount: 4 mls were injected, Effect: the patient has resolution of the pain, Set up for procedure. Performed by Jocelyne LAWLER-Kenroy Patient tolerated well. 19:25 Reduction: of the PIP of left little finger, using traction, Patient tolerated well. kb dislocated once traction was released.. Laceration: 21:13 Wound Repair of 3cm ( 1.2in ) subcutaneous laceration to palmar aspect of proximal kb phalanx of left little finger. Irregularly shaped.. Distal neuro/vascular/tendon intact. Anesthesia: Digital block administered with 1% lidocaine. Wound prep: Extensive cleansing with betadine by apartment maintenance technician, Wound irrigation with saline by apartment maintenance technician. Skin closed with 4 4-0 Prolene using simple sutures and sterile technique. Dressed with non-adherent dressing, finger splint. Patient tolerated well. MDM: 18:41 Patient medically screened. kb 19:03 Data reviewed: vital signs, nurses notes. Data interpreted: Pulse oximetry: on room air kb is 98 %. Interpretation: normal. 19:26 ED course: Call placed to Dr Bender with [facility], pt has seen this hand kb surgeon in the past and would like to see him for this injury as well. [phone]. Message left with call service, awaiting callback . 19:30 ED course: MELLISA Bai with Dr Bender's office called back. Dr Bender is not a hand kb specialist and [place] also [place] the [place] so unavailable for this case. . 19:35 Physician consultation: Florentino Nowak MD was contacted at 19:47, regarding consult, kb patient's condition, and will see patient in inpatient room, tomorrow, NPO after midnight, will see pt for surgery in the morning. 19:45 ED course: Daughter requested we call another hand specialist to get a "second kb opinion." Would like to know if this is surgery is something that should wait until the morning and be delayed. Informed daughter that this is something that is often done the next day, but she is insistent on having a second opinion from an "active hand specialist at [place] or the orthopedic hospital." Transfer initiated to facilitate daughter's request. Will discuss case with hand specialist. . 20:12 Physician consultation: Son Duval MD was contacted at 20:08, regarding admission, kb to the medical/surgical unit. ED course: Discussed case with [place] hand specialist, Dr Liu. Agrees that this is an urgent, but not emergent case and it would be done in the morning, but not tonight. Family informed of this . 20:16 ED course: Pt's daughter spoke to Eulogio Shen at [facility] that is willing to do kb the surgery in the morning as well. Wants pt to be at his office at 0730. Requests prescription for antibiotics and wants to leave here AMA to be there in the morning. 21:12 ED course: Dr Duval and Dr Nowak contacted to inform them of pt decision to leave kb AMA. . 21:14 ED course: Sutures placed to keep wound closed until surgery in the morning. kb 08/31 20:03 Order name: CBC with Diff; Complete Time: 20:48 kb 08/31 20:03 Order name: Basic Metabolic Panel; Complete Time: 20:48 kb 08/31 18:42 Order name: Hand Left 3 View XRAY; Complete Time: 19:27 kb 08/31 20:03 Order name: IV Start; Complete Time: 20:51 kb Administered Medications: 18:45 Drug: Lidocaine (1 %) 1 vials Volume: 5 ml; Route: Infiltration; tr5 18:45 Drug: Marcaine (0.5 %) 1 vials Volume: 10 ml; Route: Infiltration; tr5 20:35 Drug: Ancef 1 grams Route: IVPB; Site: right antecubital; tr5 Disposition: 09/01 07:17 Co-signature as Attending Physician, Hill Danielle MD. rn Disposition: 08/31/19 20:51 Patient has left against medical advice. Impression: Laceration without foreign body of left little finger without damage to nail, Dislocation of proximal interphalangeal joint of left little finger - with avulsion fracture. - Patients states they are going to Home. - Condition is Stable. - Discharge Instructions: Finger Fracture, [id number], Laceration Care, Adult, [id number], Finger or Thumb Dislocation, [id number]. - Prescriptions for Keflex 500 mg Oral Capsule - take 1 capsule by ORAL route every 8 hours for 10 days; 30 capsule. Follow up: Emergency Department; When: As needed; Reason: Worsening of condition. Follow up: Private Physician; When: 2 - 3 days; Reason: Recheck today's complaints, Continuance of care, Re-evaluation by your physician. - Problem is new. - Symptoms are unchanged. Signatures: Dispatcher [employer] EDMS Jocelyne Bella, TENNIS BALL COVER CEMENTER-C TENNIS BALL COVER CEMENTER-Ckb Hill Danielle MD MD rn Smirch, Shelby, RN RN ss Rodriguez, Tommie, RN RN tr5 Corrections: (The following items were deleted from the chart) 08/31 20:49 20:16 ED course: Pt's daughter spoke to Eulogio Shen at [facility] that is willing to do the surgery in the morning as well. Wants pt to be at his office at 0730. Requests prescription for antibiotics. kb 21:44 20:51 08/31/2019 20:51 Patients has left against medical advice. Impression: Laceration tr5 without foreign body of left little finger without damage to nail; Dislocation of proximal interphalangeal joint of left little finger - with avulsion fracture. Patient states they are going to Home. Condition is Stable. Follow up: Emergency Department; When: As needed; Reason: Worsening of condition. Follow up: Private Physician; When: 2 - 3 days; Reason: Recheck today's complaints, Continuance of care, Re-evaluation by your physician. Problem is new. Symptoms are unchanged. kb
[2019-08-31 21:55] VITALS: BP 94/75; O2SAT 98
[2019-08-31 21:56] VITALS: TEMP 98.9
== END 2019-08-31 21:44 | disposition left against medical advice (07) ==
LOC: ER 18:35
PROC: 0JQK0ZZ Repair Left Hand Subcutaneous Tissue and Fascia, Open Approach (ICD-10-PCS; principal; 2019-08-31)
PROC: 0PSVXZZ Reposition Left Finger Phalanx, External Approach (ICD-10-PCS; 2019-08-31)
DX: S63.287A Dislocation of proximal interphalangeal joint of left little finger, initial encounter (principal); W19.XXXA Unspecified fall, initial encounter; Y93.01 Activity, walking, marching and hiking; Y92.9 Unspecified place or not applicable
CPT/HCPCS: 85025; 80048; 36415; 73130; 64450; 96374; 99284; 12002; 26742; J0690

== ENCOUNTER 2020-08-18 04:09 | Observation (INO) | payer OTHER, MEDICARE ==
--- OUTSIDE RECORDS SUMMARY | 2020-08-18 04:14 | XMS REPORT | Continuity of Care Document ---
:1950 Author Organization [facility] t Address [address] [place] [address] Care Team Providers Name Role Phone Twan Bender Attending Clinician Twan Bender Admitting Clinician Payers Payer Name Policy Type Policy Number Effective Date Expiration Date S ource Problems Condition Condition Condition Status Onset Resolution Last Treating Co mments Source Name Details Category Date Date Treatment Clinician Date Carcinoma Problem Active 2018-08-31 Me moria of 02-11 05:00:37 l prostate 00:00: Sacha (disorder) Carcinoma 00 of prostate (disorder) Active 02/12/2016 Problem 08/31/2018 NO XRTno tx at this time, urologist does bld wk every 3 mo watching psa level, pt says last psa was 7 [facility] Acquired Problem Active 2018-08-31 Mem oria trigger 6 05:00:37 l finger Acquired 00:00: Andre n (disorder) trigger 00 finger (disorder) Active 02/12/2016 Problem 08/31/2018 left middle fingerleft fourth finger [facility] Diabetes Problem Active 2018-08-31 Mem oria mellitus - 05:00:37 l (disorder) Diabetes 00:00: Volodymyr santamaria mellitus 00 (disorder) Active 09/13/2006 Problem 08/31/2018 bS range < 150HGB A1C 8.2fbs 120-150, 2 oral meds and bydureon pen q wednesday [facility] Sleep Problem Active 2018-08-31 Memor ia apnea 1-01 05:00:37 l (finding) Sleep 00:00: Nadre n apnea 00 (finding) Active 09/13/2006 Problem 08/31/2018 uses cpap [facility] Gastroesop Problem Active 2018-08-31 M emoria hageal 05:00:37 l reflux [place] disease Gastroesop (disorder) hageal reflux disease (disorder) Active Problem 08/31/2018 med x1 [facility] Loose body Problem Active 2018-08-31 M emoria (morpholog 05:00:37 l ic Loose [place] abnormalit body y) (morpholog ic abnormalit y) Active Problem 8 left elbow [facility] Scab of Problem Active 2018-08-31 Talon althea skin 05:00:37 l (disorder) Scab of Her quiroz skin (disorder) Active Problem 08/31/2018 right elbow [facility] Trigger Problem 2017-2018-08-31 2018-08-31 Memoria finger, 2-17 05:00:37 05:00:37 l left Trigger 06:00: Sacha middle finger, 00 finger left middle finger 08/29/2018 08/31/2018 [facility] History of Past Illness Condition Condition Condition Status Onset Resolution Last Treating Co mments Source Name Details Category Date Date Treatment Clinician Date Pain in Problem Resolve 2018-08-31 2018-08-31 Memoria finger d 6-01 05:00:37 05:00:37 l (finding) Pain in 00:00: Herm yoly finger 00 (finding) Resolved 02/12/2016 Problem 08/31/2018 left fourth finger [facility] Methicilli Problem Resolve 2007-2018-08-31 2018-08-31 Memoria n d 1-01 05:00:37 05:00:37 l resistant 00:00: [place] Staphyloco Methicilli 00 ccus n aureus resistant (organism) Staphyloco ccus aureus (organism) Resolved 09/13/2007 Problem 08/31/2018 [facility] Allergies, Adverse Reactions, Alerts Allergy Allergy Status Severity Reaction(s) Onset Inactive Treating Comm ents Source Name Type Date Date Clinician codeine DA Active SV 2018-09 [facility] [place] [facility] methocar DA Active SV 2018-09 [facility] bamol -20 [place] [facility] floxacil DA Active SV 2019- [facility] royce 2-20 [place] [facility] tramadol DA Active SV 2019- [facility]20 [place] [facility] ceftriax DA Active SV 2019- [facility] one 2-20 [place] [facility] No Known DA Active U 2019- [facility] Drug 2-20 [place] Allergie 00:00: [facility] CODEINE DA Active U 2006- [facility] 0-23 [place] [facility] FLOXIN DA [facility] U 2006- [facility] 0[facility] [place] [facility] No Known DA Active U 2005- [facility] Contrast 0-23 [place] Allergie 00:00: [facility] No Known DA Active U 2005- [facility] Food 0-23 [place] Allergie 00:00: [facility] No Known DA Active U 2005- [facility] Other 0-23 [place] Allergie 00:00: [facility] ROBAXIN DA Active U 2006- [facility] 0-23 [place] [facility] ROCEPHIN DA Active U 2006-1 [facility] 0-23 [place] [facility] ULTRAM DA Active U 2005- [facility] 0-23 [place] [facility] VIOXX DA Active U 2006-1 [facility] 0-23 [place] [facility] floxacil DA Active U 2002- [facility] royce 2-17 [place] 00:[facility] tramadol DA Active U 2002- [facility] 2-17 [place] 00:[facility] valdecox DA Active U 2002- [facility] ib 2-17 [place] 00:[facility] Social History Smoking Status Start Date Stop Date Source Social History 2017-02-22 22:03:18 2017-02-22 22:03:18 [facility] Medications Ordered Filled Start Stop Current Ordering Indication Dosage Frequency Signature Comments Components Source Medication Medication Date Date Medication? Clinician (SIG) Name Name [facility] 2017-09 No 800 mL, Memoria Medication 10-30 Soln-IV, l 18:56: IV, Once, Sacha 00 first dose 08/29/18 12:56:00 [facility]ILDR[facility]END[facility], stop date 08/29/18 12:56:00 [facility] [employer] Promethazin 2017-09 No 12.5 mg = M emoria e 2-17 0.5 mL, l 18:46: Injection, Sacha 00 IM, Once PRN for vomiting, first dose 08/29/18 12:46:00 [facility] Ondansetron 2017-09 No 4 mg = 2 Me moria 2-17 mL, l 18:46: Injection, Sacha 00 IV Push, q15min PRN for nausea, order duration: 2 doses, first dose 08/29/18 12:46:00 CHILDREN'S ATTENDANT, stop date Limited # of times Dilaudid 2017-09 No 0.5 mg = Memor ia 2-17 0.5 mL, l 18:46: Injection, Grawn 00 IV Push, q10min PRN for pain severe (7-10), first dose 08/29/18 12:46:00 [facility] Demerol HCl 2017-09 No 12.5 mg = M emoria 2-17 0.5 mL, l 18:46: Injection, Grawn 00 IV Push, Once PRN for shivers, first dose 08/29/18 12:46:00 CHILDREN'S ATTENDANT LR 1,000 mL 2017-09 No 1,000 mL, M emoria 2-17 IV, 75 l 18:46: mL/hr, start date 08/29/18 12:46:00 [facility] Saline Lock 2017-09 No 10 mL, Talon althea Flush 2-17 Soln, IV l 18:46: Push, As Indicated PRN for flush, first dose 08/29/18 12:46:00 [facility]ILDREN[employer]END[employer] fentaNYL 2017-09 No 50 mcg = 1 Mem oria 2-17 mL, l 17:57: Injection, Sacha 00 IV, Once, first dose 08/29/18 11:57:00 CHILDREN[employer]S ATTENDANT, stop date 08/29/18 11:57:00 [facility]ILDREN[employer] ATTEND[employer] fentaNYL 2017-09 No 50 mcg = 1 Mem oria 2-17 mL, l 17:38: Injection, Grawn 00 IV, Once, first dose 08/29/18 11:38:00 CHILDREN'S ATTENDANT, stop date 08/29/18 11:38:00 CHILDREN[employer] ATTEND[employer] fentaNYL 2017-09 No 50 mcg = 1 Mem oria 2-17 mL, l 17:29: Injection, Grawn 00 IV, Once, first dose 08/29/18 11:29:00 CHILDREN'S ATTENDANT, stop date 08/29/18 11:29:00 [employer]ILDREN[employer] ATTEND[employer] vancomycin 2017-09 No 500 mg, Talon althea 2-17 Powder-Inj l 17:07: , IV, Grawn 00 Once, first dose 08/29/18 11:07:00 CHILDREN'S ATTENDANT, stop date 08/29/18 11:07:00 [employer]DR[employer]END[employer] vancomycin 2017-09 No 1 gm, Memori a 2-17 Powder-Inj l 16:32: , IV, Once, first dose 08/29/18 10:32:00 CHILDREN'S ATTENDANT, stop date 08/29/18 10:32:00 [employer]ILDR[employer]END[employer] dexamethaso 2017-09 No 8 mg = 2 Me moria ne 2-17 mL, l 16:32: Injection, IV, Once, first dose 08/29/18 10:32:00 CHILDREN'S ATTENDANT, stop date 08/29/18 10:32:00 [facility]ILDREN[employer]END[employer] lidocaine 2017- No 5 mL, Memoria 2-17 Injection, l 16:25: IV, Once, first dose 08/29/18 10:25:00 CHILDREN'S ATTENDANT, stop date 08/29/18 10:25:00 [employer]ILDREN[employer] ATTEND[employer] propofol 2017-09 No 140 mg = Memor ia 2-17 14 mL, l 16:25: Emulsion, IV, Once, first dose 08/29/18 10:25:00 CHILDREN'S ATTENDANT, stop date 08/29/18 10:25:00 [employer]ILDREN[employer] ATTEND[employer] midazolam 2017-09 No 2 mg = 2 Talon althea 2-17 mL, l 16:12: Injection, IV, Once, first dose 08/29/18 10:12:00 CHILDREN'S ATTENDANT, stop date 08/29/18 10:12:00 CHILDREN'S ATTENDANT fentaNYL 2017-09 No 100 mcg = Talon althea 2-17 2 mL, l 16:12: Injection, 00 IV, Once, first dose 08/29/18 10:12:00 CHILDREN'S ATTENDANT, stop date 08/29/18 10:12:00 CHILDREN'S ATTENDANT scopolamine 2017-09 No 1 patches, Memoria 2-17 Film-ER, l 16:12: IV, Once, first dose 08/29/18 10:12:00 CHILDREN'S ATTENDANT, stop date 08/29/18 10:12:00 CHILDREN'S ATTENDANT metoclopram 2017-09 No 10 mg = 2 M emoria mojgan 2-17 mL, l 16:12: Injection, IV, Once, first dose 08/29/18 10:12:00 CHILDREN'S ATTENDANT, stop date 08/29/18 10:12:00 CHILDREN'S ATTENDANT ondansetron 2017-09 No 4 mg = 2 Me moria 2-17 mL, l 16:12: Injection, IV, Once, first dose 08/29/18 10:12:00 CHILDREN'S ATTENDANT, stop date 08/29/18 10:12:00 CHILDREN'S ATTENDANT famotidine 2017-09 No 20 mg, Memor ia 2-17 Injection, l 16:12: IV, Once, first dose 08/29/18 10:12:00 CHILDREN'S ATTENDANT, stop date 08/29/18 10:12:00 CHILDREN'S ATTENDANT Vancomycin 2017-09 No MRSA Memoria 2-17 colonizati l 16:00: on or infection, 1.5 gm, IV Piggyback, Once, infuse over 60 minutes, first dose 08/29/18 10:00:00 CHILDREN'S ATTENDANT, stop date 08/29/18 10:00:00 CHILDREN'S ATTENDANT Cefazolin 2017-09 No 120 kg, Memor ia 2-17 Prophylaxi l 16:00: s Sulfamethox 2017-09 Yes 1 tabs, Mem oria azole 800 2-17 Oral, BID, l MG / 15:25: X 7 days, Trimethopri 00 # 14 tabs, m 160 MG 0 Oral Tablet Refill(s), [Bactrim] Pharmacy: [facility] [id number] Cephalexin 2017-09 Yes 500 mg = 1 M emoria 500 MG Oral 2-17 caps, l Capsule 15:23: Oral, BID, Herm yoly [Keflex] 00 # 14 caps, 0 Refill(s), Pharmacy: [facility] [id number] Lidocaine 2017-09 No 0.2 mL, Memor ia 2% 0.2 mL 2-17 Injection, l IV Start 15:07: Subcutaneo Her quiroz [[place]] 00 us, Once PRN for other (see comment), first dose 08/29/18 9:07:00 CHILDREN'S ATTENDANT LR 1,000 mL 2017-09 No 1,000 mL, M emoria 2-17 IV, 30 l 15:07: mL/hr, Grawn 00 start date 08/29/18 9:07:00 [employer]ILDREN[employer]END[employer] gabapentin 2017-09 Yes Oral, Memori a 2-11 Daily, 0 l 17:39: Refill(s), Grawn 00 pain clobetasol 2017-09 Yes 1 dana, Memor ia 0.05% 2-11 TOP, BID, l topical 17:39: 0 [place] cream 00 Refill(s) mometasone 2017-09 Yes 2 sprays, Me moria furoate 2-11 Nasal, l 0.05 17:39: Daily, PRN Grawn MG/ACTUAT 00 for Metered allergy Dose Nasal symptoms, [place] # 17 gm, 0 [Nasonex] Refill(s) lidocaine 2017-09 Yes 100 mg = Talon althea 1% 0-25 10 mL, l injection 19:00: Injection, He rmann solution 20 00 IM, Once, mL MDV first dose 07/07/18 14:00:00 CDT, stop date 07/07/18 14:00:00 CDT Multihance 2017-09 Yes 15 mL, Memor ia 0.15 mL 0-25 Injection, l with 19:00: IA, Once, Sacha Omnipaque 00 first dose 240 mg 07/07/18 14:00:00 CDT, stop date 07/07/18 14:00:00 CDT Sulfamethox No 1 tabs, Mem oria azole 800 6-14 Oral, BID, l MG / 16:16: X 7 days, Sacha Trimethopri 00 # 14 tabs, m 160 MG 0 Oral Tablet Refill(s), [Bactrim] Pharmacy: [facility] [id number] Yes 2 mg/65 Memori a Pen 6-12 ml, l 22:22: Subcutaneo Sacha us, qFriday, 0 Refill(s), diabetes empaglifloz Yes 25 mg = 1 M emoria in 25 MG 6-12 tabs, l Oral Tablet 22:22: Oral, Sacha Recio [Jardiance] 00 0 Refill(s), diabetes lansoprazol Yes 30 mg = 1 M emoria e 30 mg 6- caps, l oral 22:22: Oral, qAM, Grawn delayed 00 0 release Refill(s), capsule GERD Metformin 2017-0 Yes 1,000 mg = Me moria hydrochlori 12 1 tabs, l de 1000 MG 22:22: Oral, BID, H ermann Oral Tablet 00 0 Refill(s), diabetes Vital Signs Vital Name Observation Time Observation Value Comments Source Systolic (mm Hg) 2018-08-29 21:20:00 Talon rial Sacha Diastolic (mm Hg) 2018-08-29 21:20:00 Mem orial Sacha Respitory Rate 2018-08-29 21:20:00 Memori al [place] Systolic (mm Hg) 2018-08-29 20:40:00 Talon rial [place] Diastolic (mm Hg) 2018-08-29 20:40:00 Mem orial Sacha Heart Rate 2018-08-29 20:40:00 [facility] [place] Respitory Rate 2018-08-29 20:40:00 Memori al [place] Systolic (mm Hg) 2018-08-29 20:30:00 Talon rial [place] Diastolic (mm Hg) 2018-08-29 20:30:00 Mem orial Sacha Respitory Rate 2018-08-29 20:30:00 Memori al Sacha Heart Rate 2018-08-29 20:30:00 [facility] Sacha Heart Rate 2018-08-29 20:20:00 [facility] Sacha Temperature Oral (F) 2018-08-29 18:40:00 36.7 Marianela [facility] Sacha Height 2018-08-29 15:04:00 182.88 cm [facility] [place] Temperature Oral (F) 2018-08-29 15:04:00 37 Marianela [facility] [place] Height 2018-08-23 17:36:00 182.88 cm [facility] [place] Procedures Procedure Date / Time Performed Performing Clinician [facility] holly ARTHROSCOPY ELBOW 2018-08-29 16:47:00 [facility] W/COMPLETE SYNOVECTOMY 11759 (Left)<sup>1</sup> ARTHROSCOPY ELBOW 2018-08-29 16:47:00 [facility] W/REMOVAL LOOSE BODY 53269 (Left)<sup>2</sup> TENDON SHEATH INCISION 2018-08-29 16:47:00 Memor ial Sacha (EG. FOR TRIGGER FINGER) 72477 (Left)<sup>3</sup> Encounters Start End Encounter Admission Attending Care Care Encounter Source Date/Time Date/Time Type Type Clinicians Facility Department ID 2018-08-29 2018-08-29 Outpatient [facility] [id number] 08:03:27 15:20:00 Ronnie Barb Trent 2018-07-07 2018-07-07 Out[facility] [id number] 11:39:16 23:59:59 Ronnie Trent Results Test Description Test Time Test Comments Results Result Comments Source GLUBED 2019-09-12 10:04:00 Test Item Value Reference Range Interpretation Comme nts GLUBED (test code = GLUBED) 130 mg/dL 60-125 H [id number] 15:27:88568Xentsuza SlxrewdRDPEBKUZYW5556-25-07 18:12:000.4 [facility] HhrqlkvKAQXKMTECW6699-86-36 [facility] 2018-08-23 18:12:0055.9[facility] HvbuxpuBHJLTHCNVY5236-60-48 18:12:000.1[facility] FqyygxbGARDOXAZBE8102-18-40 18:12:003.0[facility] ExjrbbhOUACSFMLHK6009-09-37 18:12:000.8[facility] XnjtjdaYQACMMUSYY4770-51-57 18:12:002.2[facility] Sacha SOHZCJSWAE8091-68-33 18:12:0033.9[facility] FwuulduXEMVEVCZVA4551-31-49 18:12:00 7.2[facility] HwfdbofBWUTSXWQCL6268-48-45 18:12:0086.4[facility] 2018-08-23 18:12:0044.3[facility] EbjhxymLRLITWUDFU9747-55-39 18:12:0014.8[facility] TwdvehxFXUHOJZSDQ2498-95-65 18:12:005.4[facility] DdyutdyPQLDOPHTBL7070-53-89 18:12:005.12[facility] GqbrxlpODGFFQCZZL9948-89-90 18:12:70586Ikecclzl Sacha AZHGNUOSLF2834-86-47 18:12:009.8[facility] SytlqtzHDRIOUJSLU8957-10-07 18:12:00 33.5[facility] YpdszdxRULMCUZYKT0922-21-63 18:12:0014.6[facility] 2018-08-23 18:12:00 Test Item Value Reference Range Interpretation Comments MCH (test code = MCH) 29.0 pg 27.0-31.0 [facility] Hospital[facility]xylugnUUDRBIELUR1362-96-92 18:12:00Reported (08/23/18 12:12 PM) Hanna Goncalves
--- OUTSIDE RECORDS SUMMARY | 2020-08-18 04:14 | XMS REPORT | Continuity of Care Document ---
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/12/20 Problem 08/31/2018 NO XRT [facility] prostate (disorder) 16 no tx at this time, urologist does bld wk every 3 mo watching psa level, pt says last psa was 7 Acquired trigger Active 02/12/20 Problem 08/31/2018 left middle finger [facility] finger (disorder) 16 left fourth finger Methicillin Resolved 09/13/19 Problem 08/31/2018 [facility] resistant 08 Staphylococcus aureus (organism) Diabetes mellitus Active 09/13/19 Problem 08/31/2018 bS range < 150 [facility] (disorder) 07 HGB A1C 8.2 fbs 120-150, 2 oral meds and bydureon pen q wednesday Sleep apnea Active 09/13/19 Problem 08/31/2018 uses cpap [facility] (finding) 07 Gastroesophageal Active Problem 08/31/2018 med x1 [facility] reflux disease (disorder) Loose body Active Problem 08/31/2018 left elbow [facility] (morphologic abnormality) Scab of skin Active Problem 08/31/2018 right elbow [facility] (disorder) Medications Medication Details Route Status Patient Ordering Order Source Instructions Provider Date Misc Medication 800 mL, Inactive 08/29/ [facility] Soln-IV, IV, 2018 Once, first dose 08/29/18 12:56:00 GLOVE TAGGER, stop date 08/29/18 12:56:00 GLOVE TAGGER Promethazine 12.5 mg = 0.5 Inactive 08/29/ [facility] mL, Injection, 2018 IM, Once PRN for vomiting, first dose 08/29/18 12:46:00 GLOVE TAGGER Ondansetron 4 mg = 2 mL, Inactive [facility] Injection, IV 2017 Push, q15min PRN for nausea, order duration: 2 doses, first dose 08/29/18 12:46:00 GLOVE TAGGER, stop date Limited # of times Dilaudid 0.5 mg = 0.5 Inactive 08/29/ [facility] mL, Injection, 2017 IV Push, q10min PRN for pain severe (7-10), first dose 08/29/18 12:46:00 GLOVE TAGGER Demerol HCl 12.5 mg = 0.5 Inactive 08/29/ [facility] mL, Injection, 2018 IV Push, Once PRN for shivers, first dose 08/29/18 12:46:00 GLOVE TAGGER LR 1,000 mL 1,000 mL, IV, Inactive 08/29/ [facility] 75 mL/hr, 2018 start date 08/29/18 12:46:00 GLOVE TAGGER Saline Lock Flush 10 mL, Soln, Inactive 08/29/ [facility] IV Push, As 2018 Indicated PRN for flush, first dose 08/29/18 12:46:00 GLOVE TAGGER fentaNYL 50 mcg = 1 mL, Inactive 08/29/ [facility] Injection, IV, 2017 Once, first dose 08/29/18 11:57:00 GLOVE TAGGER, stop date 08/29/18 11:57:00 GLOVE TAGGER fentaNYL 50 mcg = 1 mL, Inactive 08/29/ [facility] Injection, IV, 2017 Once, first dose 08/29/18 11:38:00 GLOVE TAGGER, stop date 08/29/18 11:38:00 GLOVE TAGGER fentaNYL 50 mcg = 1 mL, Inactive 08/29/ [facility] Injection, IV, 2017 Once, first dose 08/29/18 11:29:00 GLOVE TAGGER, stop date 08/29/18 11:29:00 GLOVE TAGGER vancomycin 500 mg, Inactive 08/29/ [facility] Powder-Inj, 2018 IV, Once, first dose 08/29/18 11:07:00 GLOVE TAGGER, stop date 08/29/18 11:07:00 GLOVE TAGGER vancomycin 1 gm, Inactive 08/29/ [facility] Powder-Inj, 2018 IV, Once, first dose 08/29/18 10:32:00 GLOVE TAGGER, stop date 08/29/18 10:32:00 GLOVE TAGGER dexamethasone 8 mg = 2 mL, Inactive [facility] Injection, IV, 2017 Once, first dose 08/29/18 10:32:00 GLOVE TAGGER, stop date 08/29/18 10:32:00 GLOVE TAGGER lidocaine 5 mL, Inactive 12/17/ [facility] Injection, IV, 2018 Once, first dose 08/29/18 10:25:00 GLOVE TAGGER, stop date 08/29/18 10:25:00 GLOVE TAGGER propofol 140 mg = 14 Inactive 08/29/ [facility] mL, Emulsion, 2018 IV, Once, first dose 08/29/18 10:25:00 GLOVE TAGGER, stop date 08/29/18 10:25:00 GLOVE TAGGER midazolam 2 mg = 2 mL, Inactive 08/29/ [facility] Injection, IV, 2018 Once, first dose 08/29/18 10:12:00 GLOVE TAGGER, stop date 08/29/18 10:12:00 GLOVE TAGGER fentaNYL 100 mcg = 2 Inactive 08/29/ [facility] mL, Injection, 2018 IV, Once, first dose 08/29/18 10:12:00 GLOVE TAGGER, stop date 08/29/18 10:12:00 GLOVE TAGGER scopolamine 1 patches, Inactive [facility] Film-ER, IV, 2018 Once, first dose 08/29/18 10:12:00 GLOVE TAGGER, stop date 08/29/18 10:12:00 GLOVE TAGGER metoclopramide 10 mg = 2 mL, Inactive 08/29/ [facility] Injection, IV, 2018 Once, first dose 08/29/18 10:12:00 GLOVE TAGGER, stop date 08/29/18 10:12:00 GLOVE TAGGER ondansetron 4 mg = 2 mL, Inactive [facility] Injection, IV, 2018 Once, first dose 08/29/18 10:12:00 GLOVE TAGGER, stop date 08/29/18 10:12:00 GLOVE TAGGER famotidine 20 mg, Inactive 08/29/ [facility] Injection, IV, 2018 Once, first dose 08/29/18 10:12:00 GLOVE TAGGER, stop date 08/29/18 10:12:00 GLOVE TAGGER Vancomycin MRSA Inactive 08/29/ [facility] colonization 2018 or infection, 1.5 gm, IV Piggyback, Once, infuse over 60 minutes, first dose 08/29/18 10:00:00 GLOVE TAGGER, stop date 08/29/18 10:00:00 GLOVE TAGGER Cefazolin 120 kg, Inactive 08/29/ [facility] Prophylaxis 2018 Sulfamethoxazole 1 tabs, Oral, Active U SPI 800 MG / BID, X 7 days, 2018 Trimethoprim 160 # 14 tabs, 0 MG Oral Tablet Refill(s), [Bactrim] Pharmacy: [facility] [id number] Cephalexin 500 MG 500 mg = 1 Active 08/29/ [facility] I Oral Capsule caps, Oral, 2018 [Keflex] BID, # 14 caps, 0 Refill(s), Pharmacy: [facility] [id number] Lidocaine 2% 0.2 0.2 mL, Inactive 08/29/ [facility] mL IV Start Injection, 2018 [[place]] Subcutaneous, Once PRN for other (see comment), first dose 08/29/18 9:07:00 GLOVE TAGGER LR 1,000 mL 1,000 mL, IV, Inactive 08/29/ [facility] 30 mL/hr, 2018 start date 08/29/18 9:07:00 GLOVE TAGGER gabapentin Oral, Daily, 0 Active 08/23/ [facility] Refill(s), 2018 pain clobetasol 0.05% 1 dana, TOP, Active [facility] I topical cream BID, 0 2018 Refill(s) mometasone furoate 2 sprays, Active [facility] I 0.05 MG/ACTUAT Nasal, Daily, 2018 Metered Dose Nasal PRN for [place] [Nasonex] allergy symptoms, # 17 gm, 0 Refill(s) lidocaine 1% 100 mg = 10 Inactive 07/07/ [facility] injection solution mL, Injection, 2018 20 mL MDV IM, Once, first dose 07/07/18 14:00:00 CDT, stop date 07/07/18 14:00:00 CDT Multihance 0.15 mL 15 mL, Inactive 07/07/ [facility] with Omnipaque 240 Injection, IA, 2018 mg Once, first dose 07/07/18 14:00:00 CDT, stop date 07/07/18 14:00:00 CDT Sulfamethoxazole 1 tabs, Oral, [id number] 02/24/ [facility] 800 MG / BID, X 7 days, 2017 Trimethoprim 160 # 14 tabs, 0 MG Oral Tablet Refill(s), [Bactrim] Pharmacy: [facility] [id number] Bydureon Pen 2 mg/65 ml, Active 02/22/ [facility] Subcutaneous, 2017 qFriday, 0 Refill(s), diabetes empagliflozin 25 25 mg = 1 Active 02/22/ [facility] MG Oral Tablet tabs, Oral, 2017 [Jardiance] qAM, 0 Refill(s), diabetes lansoprazole 30 mg 30 mg = 1 Active oral delayed caps, Oral, 2017 release capsule qAM, 0 Refill(s), GERD Metformin 1,000 mg = 1 Active hydrochloride 1000 tabs, Oral, 2017 MG Oral Tablet BID, 0 Refill(s), diabetes Allergies, Adverse Reactions, Alerts No Known Medication Allergies Immunizations No Data Provided for This Section Results Order Name Results Value Reference Date Interpretation Comments Merlene rce Range LABORATORY Blood 188 74 - 106 Glucose, 2018 Capillary LABORATORY Monocyte # 0.4 0.0 - 0.8 2017 LABORATORY Lymphocyte # 1.8 1.0 - 5.5 2017 LABORATORY Neutrophil % 55.9 45.0 - 75.0 2017 LABORATORY Eosinophil % 0.1 0.0 - 0.5 2017 LABORATORY Neutrophil # 3.0 1.5 - 8.1 2017 LABORATORY Basophil % 0.8 0.0 - 1.0 2017 LABORATORY Eosinophil # 2.2 0.0 - 4.0 2017 LABORATORY Lymphocyte % 33.9 20.0 - 40.0 2017 LABORATORY Monocyte % 7.2 2.0 - 12.0 2017 LABORATORY MCV 86.4 80.0 - 94.0 2017 LABORATORY Hematocrit 44.3 42.0 - 54.0 2017 LABORATORY Hemoglobin 14.8 14.0 - 18.0 2017 LABORATORY White Blood 5.4 3.7 - 10.4 Count 2017 LABORATORY Red Blood 5.12 4.70 - 6.10 Cell Count 2017 LABORATORY Platelet 163 133 - 450 2017 LABORATORY MPV 9.8 7.4 - 10.4 2017 LABORATORY MCHC 33.5 32.0 - 36.0 2017 LABORATORY RDW 14.6 11.5 - 14.5 2017 LABORATORY MCH 29.0 27.0 - 31.0 2017 LABORATORY Results Reported (08/23/18 12:12 PM) 2017 Pathology Reports No Data Provided for This Section Diagnostic Reports No Data Provided for This Section Consultation Notes No Data Provided for This Section Discharge Summaries No Data Provided for This Section History and Physicals No Data Provided for This Section Vital Signs Vital Sign Value Date Comments Source Peripheral Pulse Rate 78 08/29/2018 [facility] Systolic (mm Hg) 140 08/29/2018 [facility] Diastolic (mm Hg) 75 08/29/2018 [facility] Respitory Rate 15 08/29/2018 [facility] Systolic (mm Hg) 133 08/29/2018 [facility] Diastolic (mm Hg) 74 08/29/2018 [facility] Heart Rate 77 08/29/2018 [facility] Respitory Rate 13 08/29/2018 [facility] Systolic (mm Hg) 131 08/29/2018 [facility] Diastolic (mm Hg) 69 08/29/2018 [facility] Respitory Rate 12 08/29/2018 [facility] Heart Rate 79 08/29/2018 [facility] Heart Rate 78 08/29/2018 [facility] Temperature Oral (F) 36.7 Marianela 08/29/2018 [facility] Height 182.88 cm 08/29/2018 [facility] Weight Measured 133.4 08/29/2018 [facility] Peripheral Pulse Rate 79 08/29/2018 [facility] Temperature Oral (F) 37 Marianela 08/29/2018 [facility] Peripheral Pulse Rate 74 08/23/2018 [facility] Weight Measured 133.35 08/23/2018 [facility] Height 182.88 cm 08/23/2018 [facility] Encounters Location Location Encounter Encounter Reason Attending ADM DC Stat us Source Details Type Number For Provider Date Date Visit [facility] [id number] Ronnie 07/07 07/07 Active [facility] al [facility] [id number] Ronnie 07/07 07/08 [facility] Sacha Jaramillo [facility] Out[facility] [id number] Ronnie 08/29 08/29 Discharged Najera rgical [facility] [id number] Ronnie 08/29 08/29 [facility] Sacha Jaramillo [facility] Procedures Procedure Code Date Perfomer Comments Source ARTHROSCOPY ELBOW 08/29/2018 auto-populated [facility] W/COMPLETE from documented SYNOVECTOMY [id number] surgical case (Left)<sup>1</sup> ARTHROSCOPY ELBOW 08/29/2018 auto-populated [facility] W/REMOVAL LOOSE from documented BODY [id number] surgical case (Left)<sup>2</sup> TENDON SHEATH 08/29/2018 auto-populated [facility] INCISION (EG. FOR from documented TRIGGER FINGER) surgical case [id number] (Left)<sup>3</sup> Assessment and Plan No Data Provided for This Section Plan of Care No Data Provided for This Section Social History Social History Date Source Social History TypeResponse 02/22/2017 [facility] Smoking Status Former smoker; Type: Cigarettes; Tobacco use per day: 30; Number of years: 17; 1 entered on: 02/22/17 1pt quit smoking 03-01-1989 Family History No Data Provided for This Section Advance Directives No Data Provided for This Section Functional Status No Data Provided for This Section
[2020-08-18 05:19] LABS: Absolute Lymphocytes (CBC) 0.7 K/uL (0.7-4.9); Basophils % 0.4 % (0-1.3); Hematocrit 42.1 % (39.6-49.0); Lymphocytes % 13.1 % (15.3-44.8); RBC Red Blood Cell Count 5.05 M/uL (4.33-5.43)
[2020-08-18 05:28] LABS: Protime INR 1.01
[2020-08-18 05:47] LABS: ALT/SGPT 46 U/L (12-78); AST/SGOT 31 U/L (15-37); Albumin 3.4 g/dL (3.4-5.0); Alkaline Phosphatase 77 U/L (45-117); BUN Blood Urea Nitrogen 18 mg/dL (7-18); Bicarbonate 21 mmol/L (21-32); Bilirubin Direct 0.3 mg/dL (0-0.2); Bilirubin Total 0.6 mg/dL (0.2-1.0); CKMB Creatine Kinase MB < 1.0 ng/mL (0.3-3.6); Creatine Phosphokinase 91 U/L (39-308); Glucose Level 192 mg/dL (74-106); Lipase 117 U/L (73-393); NT PRO-BNP 33 pg/mL (<125); Potassium 3.3 mmol/L (3.5-5.1); Protein, Total 7.3 g/dL (6.4-8.2); Sodium Level 135 mmol/L (136-145); Troponin (Emerg Dept Use Only) < 0.02 ng/mL (0.0-0.045)
--- NOTE | 2020-08-18 06:30 | ER ---
Nurse's Notes [facility] Name: Rajat Aguero Age: 69 yrs Sex: Male : 1950 Arrival Date: 08/18/2020 Time: 04:14 Bed 18 Private MD: Diagnosis: Coronavirus infection, unspecified;Viral pneumonia, unspecified;Hypoxemia Presentation: 08/18 04:29 Chief complaint: Patient states: was tested Positive for COvid a week ago, now with wh more SOB, cough and dyspnea. Pt states has O2 sat monitor at home and lowest was at 88%. Coronavirus screen: Client reports previous positive COVID test result. Date of collection: August 12, 2020. Ebola Screen: Patient negative for fever greater than or equal to 101.5 degrees Fahrenheit, and additional compatible Ebola Virus Disease symptoms Patient denies exposure to infectious person. Initial Sepsis Screen: Does the patient meet any 2 criteria? RR > 20 per min. Does the patient have a suspected source of infection? Yes: Productive cough/pneumonia. Risk Assessment: Do you want to hurt yourself or someone else? Patient reports no desire to harm self or others. Onset of symptoms was August 18, 2020. 04:29 Method Of Arrival: Wheelchair 04:29 Acuity: JOSSY 3 Triage Assessment: 04:36 Respiratory: the patient has mild shortness of breath. 04:36 Respiratory: Onset: The symptoms/episode began/occurred gradually. Historical: - Allergies: 04:34 Robaxin; 04:34 Codeine; 04:34 Floxin; 04:34 Tramadol HCl; 04:34 Rocephin; 04:34 Dilaudid; - Home Meds: 04:34 gabapentin 100 mg Oral cap 1 caps as needed at bedtime [Active]; lansoprazole 30 mg Oral cpDR 1 cap once daily [Active]; Jardiance 25 mg Oral tab 1 tab once daily [Active]; metformin 1,000 mg Oral tr24 2 tabs once daily [Active]; multivitamin Oral daily [Active]; - PMHx: 04:34 Diabetes - NIDDM; GERD; - PSHx: 04:34 Cholecystectomy; - Immunization history:: Adult Immunizations Pneumococcal vaccine is not up to date, Flu vaccine is up to date. - Social history:: Smoking status: Patient/guardian denies using. Screenin:35 Abuse screen: Denies threats or abuse. Denies injuries from another. Nutritional screening: No deficits noted. Tuberculosis screening: No symptoms or risk factors identified. Fall Risk None identified. Assessment: 04:35 General: Appears in no apparent distress. Behavior is calm, cooperative, appropriate wh for age. Pain: Denies pain. Neuro: Level of Consciousness is awake, alert, obeys commands, Oriented to person, place, time, situation, Appropriate for age. Cardiovascular: Heart tones S1 S2 Rhythm is regular. Respiratory: Reports shortness of breath cough that is Airway is patent Respiratory effort is even, labored, Respiratory pattern is tachypnea Breath sounds are diminished. GI: Abdomen is non-distended. : No signs and/or symptoms were reported regarding the genitourinary system. EENT: No signs and/or symptoms were reported regarding the EENT system. Derm: Skin is intact, is healthy with good turgor, Skin is pink, warm \T\ dry. normal. Musculoskeletal: Circulation, motion, and sensation intact. 06:00 Reassessment: Patient appears in no apparent distress at this time. No changes from previously documented assessment. Patient and/or family updated on plan of care and expected duration. Pain level reassessed. Patient is alert, oriented x 3, equal unlabored respirations, skin warm/dry/pink. 07:05 Reassessment: Spoke with Farm Truck Driver Chhaya, who states that if positive COVID test ss was obtained within 10 days and patient has a copy of result, than an additional test is not needed at this time. COVID-19 test has been cancelled. Vital Signs: 04:29 BP 146 / 77; Pulse 90; Resp 22; Temp 98.5; Pulse Ox 92% on R/A; Weight 131.54 kg; Height 6 ft. 0 in. (182.88 cm); 06:00 BP 117 / 69; Pulse 89; Resp 20; Pulse Ox 95% on 2 lpm NC; 07:29 BP 123 / 62; Pulse 93; Resp 20; Temp 98.2; Pulse Ox 95% on 2 lpm NC; ph 04:29 Body Mass Index 39.33 (131.54 kg, 182.88 cm) ED Course: 04:14 Patient arrived in ED. cl3 04:14 Mignon Short is Primary Nurse. 04:16 Gt Guerra MD is Attending Physician. tw4 04:32 Triage completed. wh 04:36 Arm band placed on right wrist. wh 04:36 Patient has correct armband on for positive identification. Bed in low position. Call light in reach. Side rails up X 1. Pulse ox on. NIBP on. 05:25 XRAY CXR (1 view) In Process Unspecified. EDMS 05:36 Notified ED physician of a critical lab result(s). D-Dimer [id number]. lp1 06:29 Alyssia Dill MD is Hospitalizing Provider. tw4 06:50 CT Chest For PE Angio In Process Unspecified. EDMS 07:00 No provider procedures requiring assistance completed. Patient admitted, IV remains in ph place. Administered Medications: No medications were administered Outcome: 06:30 Decision to Hospitalize by Provider. tw4 07:05 Admitted to ER Hold. Please see [facility] for further documentation. ph 07:05 Condition: stable 07:05 Instructed on the need for admit. 15:51 Patient left the ED. ph Signatures: Dispatcher [employer] EDMS Stacy Hartmann RN RN Brook Zuniga RN RN lp1 Kenia Yusuf, SONJA RN Mignon Short Gt uGerra MD MD tw4 Lindsay Wanye cl3
--- NOTE | 2020-08-18 06:30 | EDPHYS ---
Physician Documentation [facility] Name: Rajat Aguero Age: 69 yrs Sex: Male : 1950 Arrival Date: 08/18/2020 Time: 04:14 Bed 18 Private MD: ED Physician Gt Guerra HPI: 08/18 05:22 This 69 yrs old Male presents to ER via Wheelchair with complaints of tw4 Breathing Difficulty, Low Oxygen, Covid+. 05:22 The patient has shortness of breath at rest. Onset: The symptoms/episode began/occurred tw4 today. Duration: The symptoms are continuous, and are unchanged since they started. The patient's shortness of breath has no apparent modifying factors. Associated signs and symptoms: The patient has no apparent associated signs or symptoms. Severity of symptoms: At their worst the symptoms were moderate in the emergency department the symptoms are unchanged. The patient has not experienced similar symptoms in the past. Historical: - Allergies: 04:34 Robaxin; 04:34 Codeine; 04:34 Floxin; 04:34 Tramadol HCl; 04:34 Rocephin; 04:34 Dilaudid; - Home Meds: 04:34 gabapentin 100 mg Oral cap 1 caps as needed at bedtime [Active]; lansoprazole 30 mg Oral cpDR 1 cap once daily [Active]; Jardiance 25 mg Oral tab 1 tab once daily [Active]; metformin 1,000 mg Oral tr24 2 tabs once daily [Active]; multivitamin Oral daily [Active]; - PMHx: 04:34 Diabetes - NIDDM; GERD; - PSHx: 04:34 Cholecystectomy; wh - Immunization history:: Adult Immunizations Pneumococcal vaccine is not up to date, Flu vaccine is up to date. - Social history:: Smoking status: Patient/guardian denies using. ROS: 05:22 Constitutional: Negative for fever, chills, and weight loss, Eyes: Negative for injury, tw4 pain, redness, and discharge, Cardiovascular: Negative for chest pain, palpitations, and edema, Abdomen/GI: Negative for abdominal pain, nausea, vomiting, diarrhea, and constipation, Back: Negative for injury and pain, Skin: Negative for injury, rash, and discoloration, Neuro: Negative for headache, weakness, numbness, tingling, and seizure. 05:22 Respiratory: Positive for cough, shortness of breath. Exam: 05:22 Constitutional: This is a well developed, well nourished patient who is awake, alert, tw4 and in no acute distress. Head/Face: Normocephalic, atraumatic. Chest/axilla: Normal chest wall appearance and motion. Nontender with no deformity. No lesions are appreciated. Cardiovascular: Regular rate and rhythm with a normal S1 and S2. No gallops, murmurs, or rubs. Normal PMI, no JVD. No pulse deficits. Respiratory: Lungs have equal breath sounds bilaterally, clear to auscultation and percussion. No rales, rhonchi or wheezes noted. No increased work of breathing, no retractions or nasal flaring. Abdomen/GI: Soft, non-tender, with normal bowel sounds. No distension or tympany. No guarding or rebound. No evidence of tenderness throughout. Back: No spinal tenderness. No costovertebral tenderness. Full range of motion. MS/ Extremity: Pulses equal, no cyanosis. Neurovascular intact. Full, normal range of motion. Neuro: Awake and alert, GCS 15, oriented to person, place, time, and situation. Cranial nerves II-XII grossly intact. Motor strength 5/5 in all extremities. Sensory grossly intact. Cerebellar exam normal. Normal gait. Vital Signs: 04:29 BP 146 / 77; Pulse 90; Resp 22; Temp 98.5; Pulse Ox 92% on R/A; Weight 131.54 kg; Height 6 ft. 0 in. (182.88 cm); 06:00 BP 117 / 69; Pulse 89; Resp 20; Pulse Ox 95% on 2 lpm NC; wh 07:29 BP 123 / 62; Pulse 93; Resp 20; Temp 98.2; Pulse Ox 95% on 2 lpm NC; ph 04:29 Body Mass Index 39.33 (131.54 kg, 182.88 cm) MDM: 04:36 Patient medically screened. tw4 1207 00:21 Differential diagnosis: CHF exacerbation, Chronic Obstructive Pulmonary Disease tw4 pneumonia, pulmonary edema, Pulmonary Embolism. Antibiotic administration: Zithromax is given. Data reviewed: vital signs, nurses notes. Data reviewed: lab test result(s), CBC, electrolytes. Data interpreted: Pulse oximetry: Interpretation: normal. Counseling: I had a detailed discussion with the patient and/or guardian regarding: the historical points, exam findings, and any diagnostic results supporting the discharge/admit diagnosis, lab results, radiology results. Physician consultation: Alyssia Dill MD was contacted at 07:00, regarding admission, to the telemetry unit. patient's condition, and will see patient in ED. 08/18 04:38 Order name: Blood Culture Adult (2) 08/18 04:38 Order name: BMP; Complete Time: 06:27 4 08/18 06:27 Interpretation: Normal except: NA 135; K 3.3; GLUC 192; CA 8.4. 08/18 04:38 Order name: CBC with Diff; Complete Time: 05:36 4 08/18 05:36 Interpretation: Abnormal: PLT 146; LYM% 13.1; MIMI% 77.5. 08/18 04:38 Order name: Ckmb; Complete Time: 06:27 tw4 08/18 06:28 Interpretation: CKMB < 1.0. 08/18 04:38 Order name: CPK; Complete Time: 06:27 08/18 06:28 Interpretation: Within normal limits: CPK 91. 08/18 04:38 Order name: D-Dimer; Complete Time: 05:36 4 08/18 05:36 Interpretation: Abnormal: D-DIMER 811. 08/18 04:38 Order name: Hepatic Function; Complete Time: 06:27 4 08/18 06:27 Interpretation: Normal except: BILID 0.3; GLOB 3.9; A/G 0.9. 08/18 04:38 Order name: Lipase; Complete Time: 06:27 4 08/18 06:28 Interpretation: Within normal limits: LIP 117. 08/18 04:38 Order name: Magnesium; Complete Time: 06:27 4 08/18 06:28 Interpretation: Within normal limits: MG 2.0. 08/18 04:38 Order name: NT PRO-BNP; Complete Time: 06:27 4 08/18 06:28 Interpretation: Within normal limits: NT PRO-BNP 33. 08/18 04:38 Order name: PT-INR; Complete Time: 05:36 4 08/18 05:36 Interpretation: Within normal limits: PT 11.9. tw4 08/18 04:38 Order name: Ptt, Activated; Complete Time: 05:36 tw4 08/18 05:37 Interpretation: Within normal limits: PTT 25.7. tw4 08/18 04:38 Order name: Troponin (emerg Dept Use Only); Complete Time: 06:27 tw4 08/18 06:28 Interpretation: Within normal limits: TROPED < 0.02. tw4 08/18 07:53 Order name: C-Reactive Protein EDMS 08/18 07:53 Order name: C-Reactive Protein EDMS 08/18 07:53 Order name: CBC with Automated Diff EDMS 08/18 07:53 Order name: CBC with Automated Diff EDMS 08/18 07:53 Order name: Comprehensive Metabolic Panel EDMS 08/18 07:53 Order name: Comprehensive Metabolic Panel EDMS 08/18 07:53 Order name: D-Dimer EDMS 08/18 07:53 Order name: D-Dimer EDMS 08/18 07:53 Order name: Ferritin EDMS 08/18 07:53 Order name: Ferritin EDMS 08/18 07:53 Order name: Lipid Profile EDMS 08/18 07:53 Order name: Lipid Profile EDMS 08/18 07:53 Order name: Protime (+INR) EDMS 08/18 07:53 Order name: Protime (+INR) EDMS 08/18 07:53 Order name: PTT, Activated Partial Thromb EDMS 08/18 07:53 Order name: PTT, Activated Partial Thromb EDMS 08/18 04:38 Order name: XRAY CXR (1 view) tw4 08/18 04:38 Order name: EKG; Complete Time: 04:48 4 08/18 04:38 Order name: Cardiac monitoring; Complete Time: 05:05 4 08/18 04:38 Order name: EKG - Nurse/Tech; Complete Time: 05:05 4 08/18 04:38 Order name: IV Saline Lock; Complete Time: 05:05 4 08/18 04:38 Order name: Labs collected and sent; Complete Time: 05:05 4 08/18 04:38 Order name: O2 Per Protocol; Complete Time: 05:05 4 08/18 04:38 Order name: O2 Sat Monitoring; Complete Time: 05:05 tw4 08/18 06:00 Order name: CT Chest For PE Angio; Complete Time: 08:37 sg 08/18 07:52 Order name: CONS Pharmacy Consult EDMS 08/18 07:52 Order name: CONS Physician Consult EDMS 08/18 07:52 Order name: Heart Healthy EDMS 08/18 11:43 Order name: Glucose, Ancillary Testing EDMS EC/06 05:23 Rate is 94 beats/min. Rhythm is regular. QRS [place] is Normal. DE interval is normal. QRS tw4 interval is normal. QT interval is normal. No Q waves. T waves are Inverted in leads II, III. No ST changes noted. Clinical impression: NSR w/ Non-specific ST/T Changes. Interpreted by me. Reviewed by me. Administered Medications: No medications were administered Disposition: 08/18/20 06:30 Hospitalization ordered by Alyssia Dill for Inpatient Admission. Preliminary diagnosis are Coronavirus infection, unspecified, Viral pneumonia, unspecified, Hypoxemia. - Bed requested for Intensive Care Unit. - Status is Inpatient Admission. ph - Condition is Fair. - Problem is new. - Symptoms are unchanged. Signatures: Dispatcher [employer] EDIA Hill Danielle MD MD rn Smirch, Shelby, RN RN Kenia Yusuf RN RN Mignon Short Gt Guerra MD MD [facility] Mireya Velasco Corrections: (The following items were deleted from the chart) 07:05 06:30 Hospitalization Ordered by Alyssia Dill MD for Inpatient Admission. Preliminary ss diagnosis is Coronavirus infection, unspecified; Viral pneumonia, unspecified; Hypoxemia. Bed requested for Telemetry/MedSurg (Inpatient). Status is Inpatient Admission. Condition is Fair. Problem is new. Symptoms are unchanged. tw4 07:10 06:32 CORONAVIRUS+MR.LAB.BRZ ordered. [facility] EDMS 14:37 07:05 08/18/2020 06:30 Hospitalization Ordered by Alyssia Dill MD for Inpatient eb Admission. Preliminary diagnosis is Coronavirus infection, unspecified; Viral pneumonia, unspecified; Hypoxemia. Bed requested for [facility] ER HOLD. Status is Inpatient Admission. Condition is Fair. Problem is new. Symptoms are unchanged. 15:51 14:37 08/18/2020 06:30 Hospitalization Ordered by Alyssia Dill MD for Inpatient ph Admission. Preliminary diagnosis is Coronavirus infection, unspecified; Viral pneumonia, unspecified; Hypoxemia. Bed requested for Intensive Care Unit. Status is Inpatient Admission. Condition is Fair. Problem is new. Symptoms are unchanged. eb
--- NOTE | 2020-08-18 07:25 | RAD REPORT ---
EXAM DESCRIPTION: CT - Chest For Pe Angio - 08/18/2020 6:50 am CLINICAL HISTORY: Chest pain. SOB COMPARISON: No comparisons TECHNIQUE: CT angiogram of the pulmonary arteries was performed with MIP. All CT scans are performed using dose optimization technique as appropriate and may include automated exposure control or mA/KV adjustment according to patient size. FINDINGS: No evidence of pulmonary thromboembolism. No acute aortic finding demonstrated. Moderate bilateral ground-glass opacities are present, greatest in the lung bases, likely related to pneumonia. No significant pericardial or pleural fluid. No concerning bony finding. Cholecystectomy. Small hiatal hernia. Fatty liver. IMPRESSION: No evidence of pulmonary thromboembolism. Moderate bilateral ground-glass opacities, greatest in the bases, likely related pneumonia or COVID-1 9.
[2020-08-18] MEDS ORDERED: ONDANSETRON 4 MG/2 ML VIAL IV PRN (07:47)
[2020-08-18] MEDS ORDERED: MORPHINE 2 MG/ML SYR IV PRN (07:47)
[2020-08-18] MEDS ORDERED: ACETAMINOPHEN 500 MG TAB PO PRN (07:47)
[2020-08-18] MEDS ORDERED: NA CHLORIDE 0.9% 1,000 ML IV SCH ×2 (08:00)
[2020-08-18] MEDS ORDERED: Remdesivir 200 MG in NA CHLORIDE 0.9% 250 ML IV ONE ×2 (08:58→11:00)
[2020-08-18] MEDS ORDERED: FAMOTIDINE 20 MG/2 ML VIAL IV SCH (09:00)
[2020-08-18] MEDS ORDERED: OSELTAMIVIR 75 MG CAP PO SCH (09:00)
[2020-08-18] MEDS: METHYLPREDNISOLONE 125 MG INJ IV SCH ×2 (09:00→20:44)
[2020-08-18] MEDS ORDERED: FAMOTIDINE 20 MG TAB ONE (09:18)
[2020-08-18] MEDS ORDERED: METHYLPREDNISOLONE 40 MG INJ ONE (09:18)
[2020-08-18] MEDS ORDERED: OSELTAMIVIR 75 MG CAP ONE (09:18)
[2020-08-18] MEDS: APIXABAN 5 MG TABLET PO SCH ×2 (10:00→20:44)
[2020-08-18] MEDS ORDERED: SITAGLIPTIN PHOS 100 MG TAB PO SCH (10:00)
[2020-08-18] MEDS ORDERED: NA CHLORIDE 0.9% 1,000 ML ONE (10:03)
[2020-08-18 10:49] VITALS: BMI 2568.6
--- NOTE | 2020-08-18 11:50 | RAD REPORT ---
EXAM DESCRIPTION: RAD - Chest Single View - 08/18/2020 5:25 am CLINICAL HISTORY: SOB Chest pain. COMPARISON: CHEST PA AND LAT 2 VIEW dated 01/04/2015; CHEST PA AND LAT 2 VIEW dated 12/21/2014; CHEST SINGLE VIEW dated 12/20/2014; CHEST SINGLE VIEW dated 12/19/2014 FINDINGS: Portable technique limits examination quality. [id number] pulmonary opacities are present likely representing pneumonia. The heart is mildly e nlarged in size. No displaced fractures.
[2020-08-18] MEDS ORDERED: GLUCAGON 1 MG/VIAL IM PRN (13:40)
[2020-08-18] MEDS ORDERED: D50W 25 GM/50 ML SYRINGE IV PRN (13:40)
[2020-08-18] MEDS: INSULIN -REGULAR HUMAN 50 UNIT/0.5 ML ML SQ SCH ×2 (17:00→21:04)
--- NOTE | 2020-08-18 18:44 | P.HP ---
Certification for Inpatient Patient admitted to: Inpatient With expected LOS: >2 Midnights Patient will require the following post-hospital care: None Practitioner: I am a practitioner with admitting privileges, knowledge of patient current condition, hospital course, and medical plan of care. Services: Services provided to patient in accordance with Admission requirements found in Title 42 Section 412.3 of the Code of Federal Regulations Patient History Date of Service: 08/18/20 Reason for admission: COVID-19 pneumonia History of Present Illness: Patient is a 69-year-old gentleman who came into the hospital with shortness of breath and generalized weakness. Patient decided to come into the hospital for further evaluation. Patient's oxygen saturations were in the 80 percentile. Patient was placed on 4 L oxygen. Patient's saturations increased. Patient had a chest x-ray which showed diffuse infiltrates. CT scan for PE protocol was negative as well. Patient has diabetes, and patient has also had multiple surgeries. Patient follows up with Dr. Son Duval. At this time, the hospitalist team will be following the patient for further treatment. I did speak with patient's daughter who is a pediatric intensive care physician. She realizes that Prema severe knee and convalescent plasma do not have a great benefit but she also states that she does not feel they have a significant amount of side affects. She would prefer for patient to get this regimen of treatment during his hospitalization. I do not think the patient will be harmed by the medications so will go ahead and order these. Will monitor liver function testing closely. Allergies tramadol Adverse Reaction (Unknown, Verified 12/20/14 02:27) Unknown ceftriaxone sodium [From Rocephin] Adverse Reaction (Verified 12/20/14 02:27) Unknown codeine Adverse Reaction (Verified 12/20/14 02:27) Unknown methocarbamol [From Robaxin] Adverse Reaction (Verified 12/20/14 02:27) Unknown ofloxacin [From Floxin] Adverse Reaction (Verified 12/20/14 02:27) Unknown No Allergy (Uncoded 05/23/17 00:06) Unknown No Known Aller Allergy (Uncoded 01/22/18 22:39) Unknown Home Medications: Lansoprazole [Prevacid] 30 mg PO DAILY 12/20/14 Metformin HCl [Glucophage] 1,000 mg PO DAILY 12/20/14 Mometasone Furoate [Nasonex] 1 spray IH BID PRN 12/20/14 Aspirin [Adult Aspirin Regimen] 81 mg PO DAILY 08/18/20 Empagliflozin [Jardiance] 25 mg PO DAILY 08/18/20 Exenatide Microspheres [Bydureon Pen] 2 mg SQ ONCE 08/18/20 Gabapentin 1 cap PO BEDTIME PRN 08/18/20 Insulin Glargine,Hum.rec.anlog [Toujeo Solostar] 5 units SQ DAILY 08/18/20 Mometasone Furoate [Nasonex] 17 gm NS BID 08/18/20 Multivitamin [Multiple Vitamins] 1 tab PO DAILY 08/18/20 hydroCHLOROthiazide [Hydrochlorothiazide] 12.5 mg PO DAILY 08/18/20 - Past Medical/Surgical History Has patient received pneumonia vaccine in the past: Yes Diabetic: No -: NIDDM -: GERD -: URI -: knee sx -: joint replacement mamie -: daryn -: right shoulder sx - Family History Father Medical History: Heart disease, Hypertension, Diabetes - Social History Smoking Status: Never smoker Alcohol use: Yes CD- Drugs: No Caffeine use: No Place of Residence: Home Review of Systems 10-point ROS is otherwise unremarkable Physical Examination - Vital Signs Temperature: 97.9 F Blood Pressure: 122/74 Pulse: 87 Respirations: 26 Pulse Ox (%): 99 - Physical Exam General: Alert, In no apparent distress, Oriented x3 HEENT: Atraumatic, PERRLA, Mucous membr. moist/pink, EOMI, Sclerae nonicteric Neck: Supple, 2+ carotid pulse no bruit, No LAD, Without JVD or thyroid abnormality Respiratory: Diminished, Rhonchi/gurgles Cardiovascular: Regular rate/rhythm, Normal S1 S2, No murmurs Gastrointestinal: Normal bowel sounds, Soft and benign, Non-distended, No tenderness Musculoskeletal: No clubbing, No swelling, No tenderness Integumentary: No rashes Neurological: Normal gait, Normal speech, Normal strength at 5/5 x4 extr, Normal tone, Sensation intact, Cranial nerves 3-12 intact, Normal affect Lymphatics: No axilla or inguinal lymphadenopathy - Studies Laboratory Data (last 24 hrs) 08/18/20 04:59: WBC 5.0, Hgb 14.2, Hct 42.1, Plt Count 146 L 08/18/20 04:59: PT 11.9, INR 1.01, APTT 25.7 08/18/20 04:59: Sodium 135 L, Potassium 3.3 L, BUN 18, Creatinine 0.84, Glucose 192 H, Magnesium 2.0, Total Bilirubin 0.6, AST 31, ALT 46, Alkaline Phosphatase 77, Lipase 117 Assessment & Plan - Problems (Diagnosis) (1) Pneumonia due to COVID-19 virus Current Visit: Yes Status: Acute (2) Type 2 diabetes mellitus Current Visit: Yes Status: Acute (3) Hypoxemia Current Visit: Yes Status: Acute - Plan 1. Continue with IV remdesivir & will also give convalescent plasma 2. COVID-19 pneumonia 3. Repeat chest x-ray if symptoms are progressively worsening 4. O2 per protocol 5. Pulmonary consultation 6. Continue with albuterol inhaler therapy; IV steroids; 7. O2 per protocol 8. Monitor LFTs 9. Repeat labs including D-dimer, ferritin, and CRP and LFTs 10. GI and DVT prophylaxis Discharge Plan: Home Plan to discharge in: Greater than 2 days - Advance Directives Does patient have a Living Will: No Does patient have a Durable POA for Healthcare: Yes - Code Status/Comfort Care Code Status Assessed: Yes Code Status: Full Code Critical Care: No Time Spent Managing PTS Care (In Minutes): 40
[2020-08-19 05:33] LABS: Absolute Lymphocytes (CBC) 0.6 K/uL (0.7-4.9); Basophils % 0.1 % (0-1.3); Hematocrit 42.8 % (39.6-49.0); Lymphocytes % 16.7 % (15.3-44.8); MPV 8.9 fL (7.6-11.3); RBC Red Blood Cell Count 5.04 M/uL (4.33-5.43)
[2020-08-19 05:39] LABS: Protime INR 1.15
[2020-08-19 06:03] LABS: Albumin 3.3 g/dL (3.4-5.0); Bilirubin Direct 0.1 mg/dL (0-0.2); Bilirubin Total 0.5 mg/dL (0.2-1.0); C-Reactive Protein 89.5 mg/L (<3.00); Ferritin 568.7 ng/mL (26-388); Potassium 3.4 mmol/L (3.5-5.1); Protein, Total 7.3 g/dL (6.4-8.2)
[2020-08-19] MEDS ORDERED: PANTOPRAZOLE 40MG TABLET PO SCH (06:30)
--- NOTE | 2020-08-19 07:02 | P.PN ---
Subjective Date of Service: 08/19/20 Chief Complaint: COVID-19 pneumonia Subjective: Improving (Patient is doing well his oxygenation is satisfactory no new complain) Review of Systems General: Weakness Respiratory: Shortness of Breath Physical Examination - Vital Signs Temperature: 96.5 F Blood Pressure: 116/77 Pulse: 72 Respirations: 19 Pulse Ox (%): 95 Assessment & Plan - Problems (Diagnosis) (1) Pneumonia due to COVID-19 virus Current Visit: Yes Status: Acute Plan: Patient is 69 years of age admitted with pneumonia due to beaver virus he is really well as oxygenation is satisfactory evaluate for home oxygen patient also has a nasal CPAP which she can continue to use of reduce the dose of his Solu- Medrol evaluate for possible discharge minimal changes on CT scan anti coagulated patient he refused plasma
--- NOTE | 2020-08-19 07:05 | P.CNS ---
Date of Consult: 08/18/20 Chief Complaint: COVID-19 pneumonia History of Present Illness: Patient is 69 years of age came to the hospital progressive shortness of breath and weakness a low so oxygen saturations chest x-ray shows some minimal infiltrate no evidence of PE patient refused plasma as he is doing much better may not qualify forRemdesmir Allergies tramadol Adverse Reaction (Unknown, Verified 12/20/14 02:27) Unknown ceftriaxone sodium [From Rocephin] Adverse Reaction (Verified 12/20/14 02:27) Unknown codeine Adverse Reaction (Verified 12/20/14 02:27) Unknown methocarbamol [From Robaxin] Adverse Reaction (Verified 12/20/14 02:27) Unknown ofloxacin [From Floxin] Adverse Reaction (Verified 12/20/14 02:27) Unknown No Allergy (Uncoded 05/23/17 00:06) Unknown No Known Aller Allergy (Uncoded 01/22/18 22:39) Unknown Home Medications: Lansoprazole [Prevacid] 30 mg PO DAILY 12/20/14 Metformin HCl [Glucophage] 1,000 mg PO DAILY 12/20/14 Mometasone Furoate [Nasonex] 1 spray IH BID PRN 12/20/14 Aspirin [Adult Aspirin Regimen] 81 mg PO DAILY 08/18/20 Empagliflozin [Jardiance] 25 mg PO DAILY 08/18/20 Exenatide Microspheres [Bydureon Pen] 2 mg SQ ONCE 08/18/20 Gabapentin 1 cap PO BEDTIME PRN 08/18/20 Insulin Glargine,Hum.rec.anlog [Touelie Solostar] 5 units SQ DAILY 08/18/20 Mometasone Furoate [Nasonex] 17 gm NS BID 08/18/20 Multivitamin [Multiple Vitamins] 1 tab PO DAILY 08/18/20 hydroCHLOROthiazide [Hydrochlorothiazide] 12.5 mg PO DAILY 08/18/20 - Past Medical/Surgical History Diabetic: No -: NIDDM -: GERD -: URI -: Sleep apnea -: knee sx -: joint replacement mamie -: daryn -: right shoulder sx - Family History Father Medical History: Heart disease, Hypertension, Diabetes - Social History Alcohol use: Yes CD- Drugs: No Caffeine use: No Place of Residence: Home Review of Systems General: Weakness Respiratory: Shortness of Breath Physical Examination Temp Pulse Resp BP Pulse Ox 96.5 F L 72 19 116/77 95 08/19/20 07:02 08/19/20 07:02 08/19/20 07:02 08/19/20 07:02 08/19/20 07:02 General: Alert, In no apparent distress, Oriented x3 Respiratory: Clear to auscultation bilaterally Cardiovascular: No edema, Normal S1 S2 - Problems (1) Pneumonia due to COVID-19 virus Current Visit: Yes Status: Acute Plan: Patient is 69 years of age admitted with beaver virus pneumonia he is doing much better on his CPAP and minimal oxygen labs reviewed CRP ordered CBC unremarkable continue to monitor continue with present medications possible discharge tomorrow he diffuse plasma the continue surgery deteriorated will consider Remdesmir
[2020-08-19] MEDS: INSULIN -REGULAR HUMAN 50 UNIT/0.5 ML ML SQ SCH ×4 (07:30→19:17)
[2020-08-19] MEDS ORDERED: Remdesivir 100 MG in NA CHLORIDE 0.9% 250 ML IV SCH (09:00)
[2020-08-19] MEDS ORDERED: JARDIANCE 25 MG PO SCH (09:00)
[2020-08-19] MEDS: METHYLPREDNISOLONE 40 MG INJ IV SCH ×2 (09:05→19:17)
[2020-08-19] MEDS: APIXABAN 5 MG TABLET PO SCH ×2 (09:07→19:22)
--- NOTE | 2020-08-19 14:06 | P.DS ---
Admission Date: 08/18/20 Discharge Date: 08/19/20 Primary Care Provider: Dr. Duval; Pulmonary-Dr. Mtata Disposition: DC HOME/HOME HEALTH CARE Discharge Condition: GOOD Reason for Admission: COVID-19 pneumonia Consultations: Pulmonary-Dr. Matta Procedures: CT Scan: FINDINGS: No evidence of pulmonary thromboembolism. No acute aortic finding demonstrated. Moderate bilateral ground-glass opacities are present, greatest in the lung bases, likely related to pneumonia. No significant pericardial or pleural fluid. No concerning bony finding. Cholecystectomy. Small hiatal hernia. Fatty liver. IMPRESSION: No evidence of pulmonary thromboembolism. Moderate bilateral ground-glass opacities, greatest in the bases, likely related pneumonia or COVID-19 Medical problem list: Dyspnea secondary to bilateral COVID 19 pneumonia Obstructive sleep apnea with CPAP Diabetes mellitus type 2 insulin dependent Hypertension Diabetic neuropathy GERD Obesity, BMI 39 Brief History of Present Illness: 69-year-old male with history of diabetes, hypertension, obstructive sleep apnea presented with increased shortness of breath and weakness. Oxygen saturations around 80%. Patient required oxygen. CT scan revealed no pulmonary embolism but infiltrates noted for viral infection was identified. Patient was positive for COVID. Patient was admitted for further evaluation and treatment. Patient is followed by Dr. Duval. He asked for the hospitalist team to continue therapy for this visit due to his positive COVID status. Hospital Course: Patient presented with Dyspnea. This was found to be secondary to bilateral COVID 19 pneumonia. The patient was hypoxic and required oxygenation. Patient admitted for further treatment. During the course of his stay the patient was evaluated closely by pulmonology. Patient did receive Remdesvir as he met criteria and patient desired to get medication. No convalescent plasma was required. Patient received IV steroids with improvement as well. At discharge patient has significantly improved. No significant shortness of breath noted. Pulmonology recommends discharge home with home oxygen to be arranged. At discharge he will continue with home oxygen 2 L per nasal cannula to maintain sats above 93%. Home oxygen will be arranged. Patient will continue with prednisone 10 mg 1 pill twice daily for 7 days then 1 pill daily for 7 days. Due to his risk factors for blood clots, the patient will also continue with Eliquis 5 mg 1 pill twice daily for at least 1 month. Medications can be further monitored and adjusted by pulmonology. Recommend follow up with pulmonology in 1 week to follow up his care. Patient with obstructive sleep apnea. Patient uses CPAP. Patient will continue with this recommendation. Patient with diabetes mellitus type 2 insulin dependent. At discharge he will continue with his current medications including Jardiance, Bydureon, metformin, and Toujeo. Recommend to maintain blood sugars less than 140 fasting and less than 200 after meals. Further adjustment in medication can be done by his PCP. Patient with hypertension. At discharge patient will continue with his current medications of hydrochlorothiazide 12.5 mg daily. Recommend to maintain blood pressure less than 140/80. Further adjustment can be done by his PCP. Patient with diabetic neuropathy. At discharge patient will continue with his gabapentin as directed. Patient with GERD. At discharge he will continue with Prevacid daily. Vital Signs/Physical Exam: Temp Pulse Resp BP Pulse Ox 97.5 F 74 22 H 130/70 97 08/19/20 08:00 08/19/20 08:00 08/19/20 08:00 08/19/20 08:00 08/19/20 08:00 General: Alert, In no apparent distress, Cooperative HEENT: Atraumatic Neck: Supple Respiratory: Other (Patient breathing improved. Patient on 2 L per nasal cannula.) Cardiovascular: Normal pulses, Regular rate/rhythm Gastrointestinal: Normal bowel sounds, No tenderness, No masses, No rebound, No guarding Integumentary: No tenderness/swelling, No erythema, No warmth, No cyanosis Neurological: Normal speech, Normal strength at 5/5 x4 extr, Normal tone, Normal affect Laboratory Data at Discharge: WBC 3.8 K/uL (4.3-10.9) L D 08/19/20 04:49 Hgb 14.3 g/dL (13.6-17.9) 08/19/20 04:49 Hct 42.8 % (39.6-49.0) 08/19/20 04:49 Plt Count 165 K/uL (152-406) 08/19/20 04:49 PT 13.5 SECONDS (9.5-12.5) H 08/19/20 04:49 INR 1.15 08/19/20 04:49 APTT 28.7 SECONDS (24.3-36.9) 08/19/20 04:49 Sodium 140 mmol/L (136-145) 08/19/20 04:49 Potassium 3.4 mmol/L (3.5-5.1) L 08/19/20 04:49 BUN 20 mg/dL (7-18) H 08/19/20 04:49 Creatinine Cancelled 08/19/20 07:00 Glucose 185 mg/dL (74-106) H 08/19/20 04:49 Magnesium 2.0 mg/dL (1.8-2.4) 08/18/20 04:59 Total Bilirubin Cancelled 08/19/20 07:00 AST Cancelled 08/19/20 07:00 ALT Cancelled 08/19/20 07:00 Alkaline Phosphatase Cancelled 08/19/20 07:00 Triglycerides 77 mg/dL (<150) 08/19/20 04:49 Cholesterol 114 mg/dL (<200) 08/19/20 04:49 HDL Cholesterol 34 mg/dL (40-60) L 08/19/20 04:49 Cholesterol/HDL Ratio 3.35 08/19/20 04:49 Lipase 117 U/L (73-393) 08/18/20 04:59 Home Medications: Lansoprazole [Prevacid] 30 mg PO DAILY 12/20/14 Metformin HCl [Glucophage] 1,000 mg PO DAILY 12/20/14 Aspirin [Adult Aspirin Regimen] 81 mg PO DAILY 08/18/20 Empagliflozin [Jardiance] 25 mg PO DAILY 08/18/20 Exenatide Microspheres [Bydureon Pen] 2 mg SQ ONCE 08/18/20 Gabapentin 1 cap PO BEDTIME PRN 08/18/20 Insulin Glargine,Hum.rec.anlog [Toanna Brownar] 5 units SQ DAILY 08/18/20 Mometasone Furoate [Nasonex] 17 gm NS BID 08/18/20 Multivitamin [Multiple Vitamins] 1 tab PO DAILY 08/18/20 hydroCHLOROthiazide [Hydrochlorothiazide] 12.5 mg PO DAILY 08/18/20 Apixaban [Eliquis] 5 mg PO BID #60 tablet 08/19/20 Ascorbate Calcium [Vitamin C] 500 mg PO DAILY #30 tablet 08/19/20 Cholecalciferol (Vitamin D3) [Vitamin D 1000 Iu Tab] 1,000 unit PO DAILY #30 tab 08/19/20 predniSONE [Deltasone*] 10 mg PO SEECOM #21 tab 08/19/20 New Medications: predniSONE [Deltasone*] 10 mg PO SEECOM #21 tab Apixaban [Eliquis] 5 mg PO BID #60 tablet Ascorbate Calcium [Vitamin C] 500 mg PO DAILY #30 tablet Cholecalciferol (Vitamin D3) [Vitamin D 1000 Iu Tab] 1,000 unit PO DAILY #30 tab Patient Discharge Instructions: 1. Recommend follow up with PCP in 1-2 weeks to follow up this hospitalization. 2. Patient presented with Dyspnea. This was found to be secondary to bilateral COVID 19 pneumonia. The patient was hypoxic and required oxygenation. Patient admitted for further treatment. During the course of his stay the patient was evaluated closely by pulmonology. Patient did receive Remdesvir as he met criteria and patient desired to get medication. No convalescent plasma was required. Patient received IV steroids with improvement as well. At discharge patient has significantly improved. No significant shortness of breath noted. Pulmonology recommends discharge home with home oxygen to be arranged. At discharge he will continue with home oxygen 2 L per nasal cannula to maintain sats above 93%. Home oxygen will be arranged. Patient will continue with prednisone 10 mg 1 pill twice daily for 7 days then 1 pill daily for 7 days. Due to his risk factors for blood clots, the patient will also continue with Eliquis 5 mg 1 pill twice daily for at least 1 month. Medications can be further monitored and adjusted by pulmonology. Patient will continue with vitamin-C and vitamin-D. Recommend follow up with pulmonology in 1 week to follow up his care. 3. Patient with obstructive sleep apnea. Patient uses CPAP. Patient will continue with this recommendation. 4. Patient with diabetes mellitus type 2 insulin dependent. At discharge he will continue with his current medications including Jardiance, Bydureon, metformin, and Toujeo. Recommend to maintain blood sugars less than 140 fasting and less than 200 after meals. Further adjustment in medication can be done by his PCP. 5. Patient with hypertension. At discharge patient will continue with his current medications of hydrochlorothiazide 12.5 mg daily. Recommend to maintain blood pressure less than 140/80. Further adjustment can be done by his PCP. 6. Patient with diabetic neuropathy. At discharge patient will continue with his gabapentin as directed. 7. Patient with GERD. At discharge he will continue with Prevacid daily. Diet: ADA Activity: Ad janeen Followup: Son Duval MD [Primary Care Provider] - Time spent managing pt's care (in minutes): 55
[2020-08-19] MEDS ORDERED: GABAPENTIN 300 MG CAP PO PRN (14:16)
[2020-08-19 16:39] VITALS: BP 117/70; TEMP 96.5
[2020-08-19 17:14] VITALS: O2SAT 94
[2020-08-20] MEDS ORDERED: METFORMIN HCL 500 MG TAB PO SCH (08:00)
[2020-08-20] MEDS ORDERED: HOME MED 1 EA UNK (Empagliflozin [Jardiance] 25 MG) PO SCH (09:00)
[2020-08-20] MEDS ORDERED: HOME MED 1 EA UNK (Lansoprazole [Prevacid] 30 MG) PO SCH (09:00)
[2020-08-20] MEDS ORDERED: INSULIN GLARGINE 100 UNITS/ML SQ SCH (09:00)
[2020-08-20] MEDS ORDERED: MULTIVIT W/ MINERAL TAB PO SCH (09:00)
[2020-08-20] MEDS ORDERED: hydroCHLOROthiazide 12.5 MG CAP PO SCH (09:00)
[2020-08-20] MEDS ORDERED: ASPIRIN EC 81 MG TAB PO SCH (09:00)
== END 2020-08-19 20:00 | disposition home or self-care (01) ==
LOC: ER 04:09 → INTOOBSV 07:50 → ERHOLD 07:50 → 3RD-ICU 16:36
PROVIDERS: ADMIT Hospitalist; ATTEND Family Medicine
DX: U07.1 COVID-19 (principal); J12.89 Other viral pneumonia; G47.33 Obstructive sleep apnea (adult) (pediatric); E11.40 Type 2 diabetes mellitus with diabetic neuropathy, unspecified; Z79.4 Long term (current) use of insulin; I10 Essential (primary) hypertension; K21.9 Gastro-esophageal reflux disease without esophagitis; E66.9 Obesity, unspecified; Z68.39 Body mass index [BMI] 39.0-39.9, adult; R09.02 Hypoxemia; R94.31 Abnormal electrocardiogram [ECG] [EKG]
CPT/HCPCS: 36415; 71045; 71275; 80048; 80053; 80061; 80076; 82248; 82550; 82553; 82728; 82947; 83690; 83735; 83880; 84484; 85025; 85379; 85610; 85730; 86140; 87040; 93005; 99285; G0378; J2920; J2930; J7030; J7050; Q9967

== ENCOUNTER 2021-07-15 18:55 | Emergency (ER) | payer OTHER, MEDICARE ==
[2021-07-15] MEDS ORDERED: TETANUS & DIPHTHERIA TOX,ADULT 0.5 ML VIAL ONE (20:44)
--- NOTE | 2021-07-15 21:01 | RAD REPORT ---
EXAM DESCRIPTION: RAD - Hand Left 3 View - 07/15/2021 8:50 pm CLINICAL HISTORY: ANIMAL BITE COMPARISON: Hand Left 3 View dated 08/31/2019 FINDINGS: No fracture or foreign body is seen. No soft tissue gas is evident. Prominent arthritic ch jack involves the PIP joint of the fifth finger.
[2021-07-15] MEDS ORDERED: AMOX/K CLAV 875 MG TAB ONE (21:39)
--- NOTE | 2021-07-15 21:49 | ER ---
Nurse's Notes [facility] Name: Rajat Aguero Age: 70 yrs Sex: Male : 1950 Arrival Date: 07/15/2021 Time: 18:56 Bed 10 Private MD: Son Duval Diagnosis: Bitten by dog;Laceration, Left Hand Presentation: 07/15 19:18 Chief complaint: Patient states: I was playing with my dog and he jumped on the top of ld1 my hand tearing the skin. Coronavirus screen: At this time, the client does not indicate any symptoms associated with coronavirus-19. Ebola Screen: No symptoms or risks identified at this time. Complicating Factors: Dog scratched millstone cleaner while playing. Initial Sepsis Screen: Does the patient meet any 2 criteria? No. Patient's initial sepsis screen is negative. Does the patient have a suspected source of infection? No. Patient's initial sepsis screen is negative. Risk Assessment: Do you want to hurt yourself or someone else? Patient reports no desire to harm self or others. Onset of symptoms was July 15, 2021. 19:18 Method Of Arrival: Ambulatory ld1 19:18 Acuity: JOSSY 4 ld1 Triage Assessment: 19:20 General: Appears in no apparent distress. comfortable, Behavior is calm, cooperative, ld1 appropriate for age. Pain: Denies pain. Neuro: Level of Consciousness is awake, alert, obeys commands, Oriented to person, place, time, situation. Cardiovascular: Capillary refill < 3 seconds Patient's skin is warm and dry. Respiratory: Airway is patent Respiratory effort is even, unlabored, Respiratory pattern is regular, symmetrical. GI: Abdomen is round non-distended. Injury Description: Laceration sustained to dorsum of left hand. Historical: - Allergies: 19:20 Codeine; ld1 19:20 Dilaudid; ld1 19:20 Floxin; ld1 19:20 Robaxin; ld1 19:20 Rocephin; ld1 19:20 Tramadol HCl; ld1 - Home Meds: 19:20 gabapentin 100 mg Oral cap 1 caps as needed at bedtime [Active]; Jardiance 25 mg Oral ld1 tab 1 tab once daily [Active]; lansoprazole 30 mg Oral cpDR 1 cap once daily [Active]; metformin 1,000 mg Oral tr24 2 tabs once daily [Active]; Lantus U-100 Insulin 100 unit/mL Sub-Q crtg [Active]; - PMHx: 19:20 Diabetes - NIDDM; GERD; Cataract; ld1 - PSHx: 19:20 cataract surgery; MAICO hip replacements; Right ACL repair; Cholecystectomy; Left elbow ld1 repair; Right shoulder repair; - Immunization history:: Adult Immunizations up to date, Client reports receiving the 2nd dose of the Covid vaccine. - Social history:: Smoking status: Patient denies any tobacco usage or history of. Patient/guardian denies using alcohol. Screenin:37 Abuse screen: Denies threats or abuse. Nutritional screening: No deficits noted. ja3 Tuberculosis screening: No symptoms or risk factors identified. Fall Risk None identified. Assessment: 20:30 General: Appears in no apparent distress. Behavior is calm, cooperative, appropriate ja3 for age. Pain: Complains of pain in left hand Pain does not radiate. Pain radiates to left forearm Pain currently is 2 out of 10 on a pain scale. Pain began 3 hours ago. Neuro: Level of Consciousness is awake, alert, obeys commands, Oriented to person, place, time, situation, Test Eng are equal bilaterally Moves all extremities. Gait is steady, Speech is normal. Cardiovascular: No deficits noted. Respiratory: No deficits noted. Derm: Wound noted dorsum of left hand. Musculoskeletal: No signs and/or symptoms reported regarding the musculoskeletal system. 22:18 Injury Description: Laceration is. ja3 Vital Signs: 19:18 BP 141 / 73; Pulse 80; Resp 18; Temp 98.2(TE); Pulse Ox 96% on R/A; Weight 133.81 kg; ld1 Height 6 ft. 0 in. (182.88 cm); Pain 0/10; 21:41 BP 132 / 71; Pulse 82; Resp 14; Pulse Ox 98% on R/A; Pain 3/10; ja3 19:18 Body Mass Index 40.01 (133.81 kg, 182.88 cm) ld1 ED Course: 18:56 Patient arrived in ED. am2 18:56 Son Duval MD is Private Physician. am2 19:20 Triage completed. ld1 19:20 Arm band placed on right wrist. ld1 20:10 Fausto Wen MD is Attending Physician. [facility] 20:43 Dawood Thompson, RN is Primary Nurse. ja3 20:50 Hand Left 3 View XRAY In Process Unspecified. EDMS 21:37 No provider procedures requiring assistance completed. Dressings: Steri strips 1/4 " X ja3 2;. Irrigation on dorsum of left hand. 21:47 Florentino Nowak MD is Referral Physician. 7 22:18 Patient has correct armband on for positive identification. Bed in low position. ja3 22:18 Patient did not have IV access during this emergency room visit. ja3 Administered Medications: 20:58 Drug: Tetanus-Diphtheria Toxoid Adult 0.5 ml {Systems Designer: [employer]. Exp: ja3 01/22/2023. Lot #: [id number]. } Route: IM; Site: right deltoid; 21:42 Follow up: Response: No adverse reaction ja3 21:41 Drug: Augmentin (Amoxicillin-Clavulanate) 875 mg Route: PO; ja3 22:17 Follow up: Response: No adverse reaction ja3 Outcome: 21:48 Discharge ordered by . 7 22:18 Discharged to home ambulatory, with family. ja3 22:18 Condition: good 22:18 Discharge instructions given to patient, Instructed on discharge instructions, follow up and referral plans. Demonstrated understanding of instructions, follow-up care, Prescriptions given X 1. 22:19 Patient left the ED. ja3 Signatures: Dispatcher [employer] EDMS Irina Tinsley 2 Fausto Wen MD MD [facility] Julia Pierre RN RN 1 Dawood Thompson, SONJA RN 3
--- NOTE | 2021-07-15 21:49 | EDPHYS ---
Physician Documentation [facility] Name: Rajat Aguero Age: 70 yrs Sex: Male : 1950 Arrival Date: 07/15/2021 Time: 18:56 Bed 10 Private MD: Son Duval ED Physician Fausto Wen HPI: 07/15 20:24 This 70 yrs old Male presents to ER via Ambulatory with complaints of mh7 Laceration To Hand. 20:24 The patient was bitten on the dorsum of left hand, by a dog, while playing, at home. mh7 Onset: The symptoms/episode began/occurred today. Animal information: Animal's vaccinations are up to date. Secondary to the bite the patient reports a laceration, irregular shaped. Associated signs and symptoms: Pertinent positives: pain at site, tenderness, Pertinent negatives: erythema at site, fever, fluctuance, loss of consciousness, motor deficit, numbness distal to wound, suspected foreign body, swelling at site. Severity of symptoms: At their worst the symptoms were mild, earlier today, in the emergency department the symptoms are unchanged. Patient states that he was playing with his dog when the dog accidentally bit him on his left hand this evening. Denies any bleeding, nausea, vomiting, numbness/tingling, or weakness. He states that the dogs shots are up-to-date including rabies vaccination.. Historical: - Allergies: 19:20 Codeine; ld1 19:20 Dilaudid; ld1 19:20 Floxin; ld1 19:20 Robaxin; ld1 19:20 Rocephin; ld1 19:20 Tramadol HCl; ld1 - Home Meds: 19:20 gabapentin 100 mg Oral cap 1 caps as needed at bedtime [Active]; Jardiance 25 mg Oral ld1 tab 1 tab once daily [Active]; lansoprazole 30 mg Oral cpDR 1 cap once daily [Active]; metformin 1,000 mg Oral tr24 2 tabs once daily [Active]; Lantus U-100 Insulin 100 unit/mL Sub-Q crtg [Active]; - PMHx: 19:20 Diabetes - NIDDM; GERD; Cataract; ld1 - PSHx: 19:20 cataract surgery; MAICO hip replacements; Right ACL repair; Cholecystectomy; Left elbow ld1 repair; Right shoulder repair; - Immunization history:: Adult Immunizations up to date, Client reports receiving the 2nd dose of the Covid vaccine. - Social history:: Smoking status: Patient denies any tobacco usage or history of. Patient/guardian denies using alcohol. ROS: 20:24 Constitutional: Negative for fever, chills, and weight loss, Eyes: Negative for injury, mh7 pain, redness, and discharge, ENT: Negative for injury, pain, and discharge, Neck: Negative for injury, pain, and swelling, Cardiovascular: Negative for chest pain, palpitations, and edema, Respiratory: Negative for shortness of breath, cough, wheezing, and pleuritic chest pain, Abdomen/GI: Negative for abdominal pain, nausea, vomiting, diarrhea, and constipation, Back: Negative for injury and pain, : Negative for injury, bleeding, discharge, and swelling, Neuro: Negative for headache, weakness, numbness, tingling, and seizure, Psych: Negative for depression, anxiety, suicide ideation, homicidal ideation, and hallucinations, Allergy/Immunology: Negative for hives, rash, and allergies, Endocrine: Negative for neck swelling, polydipsia, polyuria, polyphagia, and marked weight changes, Hematologic/Lymphatic: Negative for swollen nodes, abnormal bleeding, and unusual bruising. Exam: 20:24 Constitutional: This is a well developed, well nourished patient who is awake, alert, mh7 and in no acute distress. Head/Face: Normocephalic, atraumatic. Eyes: Pupils equal round and reactive to light, extra-ocular motions intact. Lids and lashes normal. Conjunctiva and sclera are non-icteric and not injected. Cornea within normal limits. Periorbital areas with no swelling, redness, or edema. Cardiovascular: Regular rate and rhythm with a normal S1 and S2. No gallops, murmurs, or rubs. Normal PMI, no JVD. No pulse deficits. Respiratory: Lungs have equal breath sounds bilaterally, clear to auscultation and percussion. No rales, rhonchi or wheezes noted. No increased work of breathing, no retractions or nasal flaring. Neuro: Awake and alert, GCS 15, oriented to person, place, time, and situation. Cranial nerves II-XII grossly intact. Motor strength 5/5 in all extremities. Sensory grossly intact. Cerebellar exam normal. Normal gait. Psych: Awake, alert, with orientation to person, place and time. Behavior, mood, and affect are within normal limits. 20:24 Musculoskeletal/extremity: Extremities: noted in the dorsum of left hand: laceration, mh7 No active bleeding, erythema, discharge, swelling, ROM: intact in all extremities, Circulation is intact in all extremities. Sensation intact. Compartment Syndrome exam of affected extremity: is normal. no numbness, no tingling, no sensation deficit, no palor, no weak pulses, Joints: All joints appear normal with full range of motion. Weight bearing: able to fully bear weight, without difficulty, Tendon exam: specific tendon testing normal through active and passive range of motion 20:24 Skin: injury, laceration(s), the wound is approximately 3 cm(s), with a depth of 0.2 mh7 cm(s), of the dorsum of left hand, that can be described as clean, no foreign body, irregular, without bleeding, No erythema, discharge, swelling. Vital Signs: 19:18 BP 141 / 73; Pulse 80; Resp 18; Temp 98.2(TE); Pulse Ox 96% on R/A; Weight 133.81 kg; ld1 Height 6 ft. 0 in. (182.88 cm); Pain 0/10; 21:41 BP 132 / 71; Pulse 82; Resp 14; Pulse Ox 98% on R/A; Pain 3/10; ja3 19:18 Body Mass Index 40.01 (133.81 kg, 182.88 cm) ld1 Laceration: 21:41 Wound Repair of 3cm ( 1.2in ) subcutaneous laceration to dorsum of left hand. mh7 Irregularly shaped.. Distal neuro/vascular/tendon intact. Wound prep: Extensive cleansing by nurse, Wound irrigation with saline by nurse, Wound explored extensively, Copious irrigation. Skin closed with 1 1-0 Sterile strip using Sterile strip. Dressed with 4x4's, non-adherent dressing. Patient tolerated well. MDM: 21:41 Differential diagnosis: superficial laceration, tendon injury, vascular injury, mh7 cellulitis. Rabies Status: Rabies immunization is not indicated. Data reviewed: vital signs, nurses notes, radiologic studies, plain films. Counseling: I had a detailed discussion with the patient and/or guardian regarding: the historical points, exam findings, and any diagnostic results supporting the discharge/admit diagnosis, radiology results, the need for outpatient follow up, a hand specialist. Response to treatment: the patient's symptoms have markedly improved after treatment. Refusal of service: The patient/guardian displays adequate decision making capability and despite a detailed discussion of alternatives, benefits, risks, and consequences refuses: Pain medication. Special discussion: I discussed in detail with the patient the higher chance of wound infection based on his presenting history. ED course: Well-appearing, no acute distress, vital signs stable, neurovascular intact, no focal neurological deficits. Discussed test results and findings with the patient. Discussed possibility that if wound is closed with sutures may increase risk of infection. Patient declined suture placement for wound closure. With a sterile strip in the area of wound but not full closure. Patient to follow-up with his doctor in the next 1 to 2 days for wound check or he may return to ED for well check or worsening of symptoms or other urgent concerns.. 21:48 Patient medically screened. [facility] 07/15 20:18 Order name: Hand Left 3 View XRAY; Complete Time: 21:11 [facility] 07/15 20:23 Order name: Wound Care; Complete Time: 20:58 [facility] Administered Medications: 20:58 Drug: Tetanus-Diphtheria Toxoid Adult 0.5 ml {Insurance Verify Rep: [employer]. Exp: ja3 01/22/2023. Lot #: [id number]. } Route: IM; Site: right deltoid; 21:42 Follow up: Response: No adverse reaction ja3 21:41 Drug: Augmentin (Amoxicillin-Clavulanate) 875 mg Route: PO; ja3 22:17 Follow up: Response: No adverse reaction ja3 Disposition Summary: 07/15/21 21:48 Discharge Ordered Location: Home [facility] Problem: new [facility] Symptoms: have improved [facility] Condition: Stable [facility] Diagnosis - Bitten by dog mh7 - Laceration, Left Hand 7 Followup: 7 - With: Private Physician - When: 1 - 2 days - Reason: Wound Recheck, Worsening of condition, Recheck today's complaints, Continuance of care, Re-evaluation by your physician Followup: mh7 - With: Emergency Department - When: 1 - 2 days - Reason: Wound Recheck, Worsening of condition, Recheck today's complaints Followup: 7 - With: Florentino Nowak MD - When: 1 - 2 days - Reason: Wound Recheck, Worsening of condition, Recheck today's complaints Discharge Instructions: - Discharge Summary Sheet [facility] - Animal Bite, Adult, [id number] [facility] - Wound Care, Adult [facility] Forms: - Medication Reconciliation Form [facility] - Thank You Letter [facility] - Antibiotic Education [facility] - Prescription Opioid Use [facility] Prescriptions: - Augmentin 875-125 mg Oral Tablet - take 1 tablet by ORAL route every 12 hours for 7 days; 14 tablet; Refills: 0, 7 Product Selection Permitted Signatures: Dispatcher [employer] Fausto Cohen MD MD 7 Julia Pierre RN RN ld1 Dawood Thompson RN RN ja3
[2021-07-15 23:05] VITALS: TEMP 98.2
[2021-07-15 23:06] VITALS: BP 132/71; O2SAT 98
--- OUTSIDE RECORDS SUMMARY | 2021-07-26 08:32 | XMS REPORT | Continuity of Care Document ---
:1950 Author Organization [facility] t Address [address] [place] [address] Care Team Providers Name Role Phone BENNETT Primary Care Physician Unavailable KENDALL, A Attending Clinician Unavailable Noemi Modi Attending Clinician Unavailable Only, Test Attending Clinician Unavailable Misty LO Attending Clinician MISTY Attending Clinician Unavailable Kendall LO, A Attending Clinician Doctor Unassigned, Name Attending Clinician Unavailable Pob, Lab Main Attending Clinician Unavailable Coco, A Attending Clinician Unavailable Coco, A Attending Clinician Unavailable KENDALL, A Admitting Clinician Unavailable Physician, Primary Care Admitting Clinician Unavailable Kendall LO, A Admitting Clinician Coco, Griselda Admitting Clinician Unavailable Mukund Admitting Clinician Unavailable Payers Payer Name Policy Type Policy Number Effective Date Expiration Date S ourcharanjit MEDICARE PART A \T\ [id number] 2013 B 00:00:00 [facility] [id number] 2020 MEDICARE SUPPLEMENT 00:00:00 FOR LIFE [id number] 2015 00:00:00 Problems Condition Condition Condition Status Onset Resolution Last Treating Co mments Source Name Details Category Date Date Treatment Clinician Date No known No known Disease Unive rs active active ity of problems problems [facility] Allergies, Adverse Reactions, Alerts Allergy Allergy Status Severity Reaction(s) Onset Inactive Treating Comm ents Source Name Type Date Date Clinician codeine DA Active SV 2018-09 [facility] 11-02 [place] 00:00: [facility] methocar DA Active SV [facility] bamol 2-20 [place] 00:[facility] floxacil DA Active SV NAUSEA 2019- [facility] royce 2-20 [place] 00:[facility] tramadol DA Active SV NAUSEA 2019- [facility] 2-20 [place] 00:00: [facility] ceftriax DA Active SV 2019- [facility] one 2- [place] 00:00: [facility] No Known DA Active U 2019- [facility] Drug 2- [place] Allergie 00:00: Orthope s 00 dic Hospita [facility] No Known DA Active U 2019- [facility] Drug 2-20 [place] Allergie 00:00: Orthope s 00 [facility] codeine DA Active SV NAUSEA 2018- [facility] 2-20 [place] 00:00: [facility] methocar DA Active SV NAUSEA 2018- [facility] bamol 2- [place] 00:00: [facility] 00 [facility] ceftriax DA Active SV NAUSEA 2018- [facility] one 2- [place] 00:00: [facility] CODEINE DA Active U 2006-1 [facility] 0-23 [place] 00:00: [facility] FLOXIN DA Active U 2005- [facility] 0-23 [place] 00:00: [facility]ope 00 [facility] No Known DA Active U 2006- [facility] Contrast 0-23 [place] Allergie 00:00: Orthope s 00 dic Hospita l No Known DA Active U 2006-1 [facility] Food 0-23 [place] Allergie 00:00: Orthope s 00 dic Hospita [facility] No Known DA Active U 2006-1 [facility] Other 0-23 [place] Allergie 00:00: Orthope s 00 dic [facility]osp[facility] l ROBAXIN DA Active U 2006-1 [facility] 0-23 [place] 00:00: [facility] ROCEPHIN DA Active U 2006-1 [facility] 0-23 [place] 00:00: [facility] 00 [facility] ULTRAM DA Active U 2006-1 [facility] 0-23 [place] 00:00: [facility] VIOXX DA Active U 2005-1 [facility] 0-23 [place] 00:00: [facility] floxacil DA Active U 2002- [facility] royce 2-17 [place] 00:00: [facility] tramadol DA Active U 2002-1 [facility] 2-17 [place] 00:00: [facility] valdecox DA Active U 2002-09 [facility] ib 2-17 [place] 00:00: [facility] NO KNOWN Drug Active Univers ALLERGIE Class ity of S [facility] Social History Social Habit Start Date Stop Date Quantity Comments Source Exposure to Not sure [facility] SARS-CoV-2 [facility] (event) [place] Alcohol intake 2021-07-10 2021-07-10 Ex-drinker [facility] 00:00:00 00:00:00 (finding) [facility] Tobacco use and 2021-07-09 2021-07-09 Never used Universit y of exposure 00:00:00 00:00:00 [facility] History of 1998-03-01 Cigarette Smoker Universi ty of tobacco use 00:00:00 [facility] Sex Ass[birth year] At [birth year] Universit y of 00:00:00 00:00:00 [facility] Smoking Status Start Date Stop Date Source Unknown if ever smoked Universit y [facility] Former smoker 2021-07-09 00:00:00 2021-07-09 00:00:00 Universi ty of [facility] Never smoker [facility] Medications Ordered Filled Start Stop Current Ordering Indication Dosage Frequency Signature Comments Components Source Medication Medication Date Date Medication? Clinician (SIG) Name Name Hyaluronida 2020-09 Yes PRN, Univer s se, Human 0-27 Starting ity of Recomb. 14:36: on Wed [place] (HYLENEX) 07/09/21 Medica l injection at [address] [place] [address] Until Discontinu ed, Routine, Intra-op neomycin-po 2020-09 Yes PRN, Univer s lymyxin-dex 0-27 Starting ity of amethasone 14:36: on Wed [place] (MAXITROL) 07/09/21 Medic al 3.[address] [place] [address] mg/g-10,000 Until unit/g-0.1 Discontinu % ed, ophthalmic Routine, ointment Intra-op eye block 2020-09 Yes PRN, Univers syringe 11 0-27 Starting ity o f mL 14:36: on Wed [place] 07/09/21 Medical at [address] [place] [address] Until Discontinu ed, Intra-op Hyaluronida 2021-1 2021- No PRN, Unive rs se, Human 007-09 Starting ity o f Recomb. 14:36: 17:17 on Wed [place] (HYLENEX) 00 :56 07/09/21 Medica l injection at 0936, Branch Until Wed07/09/21 at 1217, Routine, Intra-op neomycin-po 2020-09- No PRN, [facility] lymyxin-dex 007-09 Starting ity of amethasone 14:36: 17:17 on Weda s (MAXITROL) 00 :56 07/09/21 Medic al 3.5 at 0936, Branch mg/g-10,000 Until Wed unit/g-0.1 07/09/21 % at 1217, ophthalmic Routine, ointment Intra-op eye block 2020-09- No PRN, Univers syringe 11 07-09 Starting ity of mL 14:36: 17:17 on Wed [place] 00 :56 07/09/21 Medical at 0936, Branch Until Wed07/09/21 at 1217, Intra-op DUOVISC 2020-09 Yes PRN, Univers (DUOVISC 027 Starting ity of VISCO 14:35: on Wed [place] ELASTIC) 3 00 07/09/21 Medic al %-4 %(0.5 at 0935, Branch mL) 1 % Until (0.55 mL) Discontinu intraocular ed, injection Routine, Intra-op dexamethaso 2020-09 Yes PRN, Univer s ne 0-27 Starting ity of (DECADRON 14:35: on Wed [place] PHOSPHATE) 00 07/09/21 Medic al injection at 0935, Branch Until Discontinu ed, Routine, Intra-op carbachoL 2020-09 Yes PRN, Univers (MIOSTAT) 027 Starting ity of 0.01 % 14:35: on Wed [place] intraocular 00 07/09/21 Medi kayleen injection at 0935, Branch Until Discontinu ed, Routine, Intra-op balanced 2020-09 Yes PRN, Univers salt irrig 027 Starting ity o f soln comb1 14:35: on Wed [place] (BSS PLUS) 00 07/09/21 Medic al ophthalmic at 0935, Branc h solution Until 500 mL bag Discontinu ed, Routine, Intra-op carbachoL 2021-1 2021- No PRN, Univers (MIOSTAT) 07-09 Starting ity o f 0.01 % 14:35: 17:17 on Wed [place] intraocular 00 :56 07/09/21 Medi kayleen injection at 0935, Branch Until Wed07/09/21 at 1217, Routine, Intra-op balanced 2020-09- No PRN, Univers salt irrig 07-09 Starting ity of soln comb1 14:35: 17:17 on Wed [place] (BSS PLUS) 00 :56 07/09/21 Medic al ophthalmic at 0935, Branc h solution Until Wed 500 mL bag 07/09/21 at 1217, Routine, Intra-op DUOVISC 2020-09- No PRN, Univers (DUOVISC 07-09 Starting ity of VISCO 14:35: 17:17 on Wed [place] ELASTIC) 3 00 :56 07/09/21 Medic al %-4 %(0.5 at 0935, Branch mL) 1 % Until Wed (0.55 mL) 07/09/21 intraocular at 1217, injection Routine, Intra-op dexamethaso 2020-09- No PRN, Unive rs ne 07-09 Starting ity of (DECADRON 14:35: 17:17 on Wed [place] PHOSPHATE) 00 :56 07/09/21 Medic al injection at 0935, Branch Until Wed07/09/21 at 1217, Routine, Intra-op lactated 2020-09- No 1000mL at 42 Unive rs ringers IV 07-09 mL/hr, ity of infusion 13:00: 12:56 1,000 mL, José Miguel as 1,000 mL 00 :00 IV Medical Infusion, Branch ONCE, 1 dose, On 07/09/21 at 0800, Routine, DSU Pre-op mydriatic 2020-09- No .5mL 0.5 mL, Univ ers #5 07-09 Left Eye, ity of ophthalmic 13:00: 12:55 ONCE, 1 José Miguel as solution 00 :00 dose, On Medical 0.5 mL Wed Branch syringe 07/09/21 at 0800, Routine, DSU Pre-op lactated 2021-1 2021- No 1000mL at 42 Unive rs ringers IV 0-27 10-27 mL/hr, ity of infusion 13:00: 12:56 1,000 mL, José Miguel as 1,000 mL 00 :00 IV Medical Infusion, Branch ONCE, 1 dose, On 07/09/21 at 0800, Routine, DSU Pre-op mydriatic 2020-09- No .5mL 0.5 mL, Univ ers #5 0-27 - Left Eye, ity of ophthalmic 13:00: 12:55 ONCE, 1 José Miguel as solution 00 :00 dose, On Medical 0.5 mL Wed Branch syringe 07/09/21 at 0800, Routine, DSU Pre-op aspirin 2020-09 Yes Take by Univer s (ASPIR-81 0-27 mouth. ity of ORAL) 10:17: [address] aspirin 2020-09 Yes Take by Univer s (ASPIR-81 0-27 mouth. ity of ORAL) 10:17: [address] aspirin 2020-09 Yes Take by Univer s (ASPIR-81 0-27 mouth. ity of ORAL) 10:17: [address] aspirin 2020-09 Yes Take by Univer s (ASPIR-81 0-27 mouth. ity of ORAL) 10:17: [address] aspirin 2020-09 Yes Take by Univer s (ASPIR-81 0-22 mouth. ity of ORAL) 10:36: [address] LANTUS Yes Univers SOLOSTAR 9-28 ity of U-100 00:00: [place] INSULIN 100 00 Medical unit/mL (3 Branch mL) injection LANTUS Yes Univers SOLOSTAR 9-28 ity of U-100 00:00: [place] INSULIN 100 00 Medical unit/mL (3 Branch mL) injection LANTUS Yes Univers SOLOSTAR 9-28 ity of U-100 00:00: [place] INSULIN 100 00 Medical unit/mL (3 Branch mL) injection LANTUS Yes Univers SOLOSTAR 9-28 ity of U-100 00:00: [place] INSULIN 100 00 Medical unit/mL (3 Branch mL) injection LANTUS Yes Univers SOLOSTAR 9-28 ity of U-100 00:00: [place] INSULIN 100 00 Medical unit/mL (3 Branch mL) injection ON Yes Univers BCISE 2 9-10 ity of mg/0.85 mL 00:00: [place] [facility] BYDUREON 0 Yes Univers BCISE 2 9-10 ity of mg/0.85 mL 00:00: [facility] [place] [facility] Medical Branch BYDUREON 2020-0 Yes Univers BCISE 2 9-10 ity of mg/0.85 mL 00:00: [facility] [place] [facility] Medical Branch BYDUREON 2020-0 Yes Univers BCISE 2 9-10 ity of mg/0.85 mL 00:00: [facility] [place] [facility] Medical Branch BYDUREON 0 Yes Univers BCISE 2 9-10 ity of mg/0.85 mL 00:00: [facility] [place] [facility] Medical Branch gabapentin 2020-0 Yes Univers 100 mg 5-27 ity of capsule 00:00: [place] [address] Medical Branch gabapentin 2020-0 Yes Univers 100 mg 5-27 ity of capsule 00:00: [place] [address] Medical Branch gabapentin 2020-0 Yes Univers 100 mg 5-27 ity of capsule 00:00: [place] [address] Medical Branch gabapentin 2020-0 Yes Univers 100 mg 5-27 ity of capsule 00:00: [place] [address] Medical Branch gabapentin 2020-0 Yes Univers 100 mg 5-27 ity of capsule 00:00: [place] [address] Medical Branch empaglifloz 0 Yes Univer s in 1-18 ity of (JARDIANCE) 00:00: [place] 25 mg Tab 00 Medical Branch metFORMIN 2020-0 Yes Univers 1,000 mg 1-18 ity of tablet 00:00: [place] Medical Branch empaglifloz 2020-0 Yes Univer s in 1-18 ity of (JARDIANCE) 00:00: [place] 25 mg Tab 00 Medical Branch metFORMIN 2020-0 Yes Univers 1,000 mg 1-18 ity of tablet 00:00: [place] Medical Branch empaglifloz 2020-0 Yes Univer s in 1-18 ity of (JARDIANCE) 00:00: [place] 25 mg Tab 00 Medical Branch metFORMIN 1-0 Yes Univers 1,000 mg 1-18 ity of tablet 00:00: [place] Medical Branch empaglifloz 2020-0 Yes Univer s in 1-18 ity of (JARDIANCE) 00:00: [place] 25 mg Tab 00 Medical Branch metFORMIN Yes Univers 1,000 mg 1-18 ity of tablet 00:00: [place] Medical Branch empaglifloz Yes Univer s in 1-18 ity of (JARDIANCE) 00:00: [place] 25 mg Tab 00 Medical Branch metFORMIN 0 Yes Univers 1,000 mg 1-18 ity of tablet 00:00: [place] Medical [place] lansoprazol 0 Yes Univer s e 30 mg 9-21 ity of capsule 00:00: [place] Medical Branch lansoprazol 2019-0 Yes Univer s e 30 mg 9-21 ity of capsule 00:00: [place] Medical [facility] lansoprazol 0 Yes Univer s e 30 mg 9-21 ity of capsule 00:00: [place] [facility] lansoprazol 2019-0 Yes Univer s e 30 mg 9-21 ity of capsule 00:00: [place] Medical Branch lansoprazol 0 Yes Univer s e 30 mg 9-21 ity of capsule 00:00: [place] [facility] Vital Signs Vital Name Observation Time Observation Value Comments Source Systolic blood 2021-07-09 15:03:00 143 mm[Hg] Univer sity of pressure [facility] Diastolic blood 2021-07-09 15:03:00 66 mm[Hg] Unive rsity of pressure [facility] Heart rate 2021-07-09 15:03:00 59 /min [facility] Respiratory rate 2021-07-09 15:03:00 16 /min [facility] Oxygen saturation in 2021-07-09 15:03:00 93 /min [facility] Arterial blood by [facility] Pulse oximetry Branch Body temperature 2021-07-09 12:54:00 36.22 Marianela [facility] Body height 2021-07-04 15:30:00 182.9 cm [facility] Body weight 2021-07-04 15:30:00 133.811 kg [facility] BMI 2021-07-04 15:30:00 40.01 kg/m2 [facility] Systolic blood 2021-07-09 14:53:00 147 mm[Hg] [facility] Diastolic blood 2021-07-09 14:53:00 84 mm[Hg] [facility] Heart rate 2021-07-09 14:53:00 63 /min [facility] Respiratory rate 2021-07-09 14:53:00 16 /min [facility] Oxygen saturation in 2021-07-09 14:53:00 94 /min [facility] blood by [facility] Pulse oximetry Branch Body temperature 2021-07-09 12:54:00 36.22 Marianela [facility] Body height 2021-07-04 15:30:00 182.9 cm [facility] Body weight 2021-07-04 15:30:00 133.811 kg [facility] BMI 2021-07-04 15:30:00 40.01 kg/m2 [facility] Procedures Procedure Date / Time Performing Source Performed Clinician PHACOEMULSIFICATION OF 2021-07-09 [place] [facility] CATARACT WITH INTRAOCULAR 14:09:00 [facility] LENS IMPLANT POCT GLUCOSE(AGE >30DAYS) 2021-07-09 Ivory Cunningham [facility] 12:57:00 [facility] POCT GLUCOSE(AGE >30DAYS) 2021-07-09 Ivory Cunningham [facility] 12:57:00 [facility] POCT GLUCOSE (AUTOMATED) 2021-07-09 [place] [facility] 12:56:00 [facility] POCT GLUCOSE (AUTOMATED) 2021-07-09 [place] [facility] 12:56:00 [facility] DAY SURGERY - ADC 2021-07-09 Doctor Unassigned, [facility] 05:01:00 [place] [facility] COVID-19 (ID NOW RAPID 2021-07-07 [place] [facility] TESTING) 19:36:00 [facility] CONSENT/REFUSAL FOR DIAGNOSIS 2021-06-30 Doctor Unassigned, [facility] AND TREATMENT 22:07:02 [place] [facility] CONSENT/REFUSAL FOR DIAGNOSIS 2021-06-30 Doctor Unassigned, [facility] AND [facility] 22:07:02 [place] [facility] ASSIGNMENT OF BENEFITS 2021-06-30 Doctor Unassigned, [facility] 22:06:48 [place] [facility] ASSIGNMENT OF BENEFITS 2021-06-30 Doctor Unassigned, [facility] 22:06:48 [place] [facility] CONSENT/REFUSAL FOR DIAGNOSIS 2021-06-30 Doctor Soledadssigned, [facility] AND [facility] 22:06:31 [place] [facility] CONSENT/REFUSAL FOR DIAGNOSIS 2021-06-30 Doctor Unassigned, [facility] AND [facility] 22:06:31 [place] [facility] ASSIGNMENT OF BENEFITS 2021-06-30 Doctor Soledadssigned [facility] 22:06:19 [place] [facility] ASSIGNMENT OF BENEFITS 2021-06-30 Doctor Soledadssdevyn [facility] 22:06:19 [place] [facility] NOTICE OF BILLING PRACTICES 2021-06-30 Doctor Camden [facility] FOR MEDICARE PATIENTS 22:06:00 [place] Medical Br anch NOTICE OF BILLING PRACTICES 2021-06-30 Doctor Soledadssdevyn [facility] FOR MEDICARE PATIENTS 22:06:00 [place] Medical Br anch [facility] PATIENT FINANCIAL POLICY 2021-06-30 Doctor Soledadssdevyn [facility] 22:05:01 [place] [facility] Branch [facility] PATIENT FINANCIAL POLICY 2021-06-30 Doctor Soledadssdevyn, [facility] 22:05:01 [place] [facility] NO SHOW OR MISSED APPOINTMENT 2021-06-30 Doctor Camden [facility] POLICY ACKNOWLEDGEMENT 22:04:36 [place] Medical B ranch NO SHOW OR MISSED APPOINTMENT 2021-06-30 Doctor Camden [facility] POLICY ACKNOWLEDGEMENT 22:04:36 [place] Medical B ranch NOTICE OF PRIVACY PRACTICES 2021-06-30 Doctor Unassdevyn [facility] 22:04:20 [place] [facility] NOTICE OF PRIVACY PRACTICES 2021-06-30 Doctor Soledadssdevyn [facility] 22:04:20 [place] [facility] CONSENT/REFUSAL FOR DIAGNOSIS 2021-06-30 Doctor Soledadssdevyn, [facility] AND TREATMENT 22:04:08 [place] [facility] CONSENT/REFUSAL FOR DIAGNOSIS 2021-06-30 Doctor Unassigned, [facility] AND TREATMENT 22:04:08 [place] [facility] ASSIGNMENT OF BENEFITS 2021-06-30 Doctor Unassigned, [facility] 22:03:56 [place] [facility] ASSIGNMENT OF BENEFITS 2021-06-30 Doctor Unassigned, [facility] 22:03:56 [place] [facility] Encounters Start End Encounter Admission Attending Care Care Encounter Source Date/Time Date/Time Type Type Clinicians Facility Department ID 2021-07[facility]17 [id number] Univers 15:45:01 SEA mcknight [facility] 2021-07-15 [id number] Univers 07:43:54 SEA mcknight [facility] 2019-09-13 Inpatient Eulogio Casas HCATO REHA [id number] [facility] 00:07:00 [id number] [place] [facility] 2021-07-21 2021-07-21 Laboratory Only, Adc Test [facility] [id number] Univers 11:13:32 11:28:32 Only Daniel Jennings [id number] ity [facility] [id number] [facility] [id number] [facility] [address] [place] 2021-07-21 2021-07-21 Outpatient R [facility] [id number] Univers 11:15:00 11:15:00 [id number] itarsenio [facility] 2021-07-21 2021-07-21 Outpatient R MISTY [facility] [id number] Univers 11:15:00 11:15:00 DANIEL mcknight [facility] 2021-07-09 2021-07-09 Hospital [facility] [id number] Univers 07:47:00 10:16:00 Encounter Sea Miller [id number] ity [id number] [place] [id number] [place] [id number] [place] 2021-07-09 2021-07-09 Surgery [facility] [id number] Univers 09:17:00 09:56:00 Sea MILLER [id number] ity of [place] [id number] [place] [id number] [facility] CENTER 020 Branch 2021-07-09 2021-07-09 Orders Doctor JAIRON [id number] Univers 00:00:00 00:00:00 Only Unassigned, GABINO [id number] ity of [place] [facility] [id number] José Miguel as [id number] [facility] 009 Branch 2021-07-07 2021-07-07 Laboratory Only, Adc Test [facility] [id number] Univers 14:30:36 14:45:36 Only [place] [id number] 0 [place] [id number] [place] [id number] [facility] [address] [place] 2021-07-07 2021-07-07 Outpatient Lily DUMONT [facility] [id number] Univers 14:30:00 14:30:00 SEA mcknight [facility] 2021-06-30 2021-06-30 Control Area Operator Christiano, Adc Lab Main [facility] [id number] Univers 17:10:11 17:25:11 Visit [place] [id number] 0 ity of [place] [id number] [facility] [id number] [facility] [place] 2021-06-30 2021-06-30 Outpatient [facility] [id number] Univers 16:15:00 16:15:00 SEA mcknight [facility] 2020-05-14 2020-05-14 Outpatient Ovidio Sepulveda [facility] [id number] 17:37:00 23:59:00 Ovidio Sepulveda [facility] 2019-11-23 2019-11-23 Outpatient Eulogio Casas REHA [id number] [facility] 13:10:00 13:10:00 [id number] [place] [facility] 2019-09-05 2019-09-12 Outpatient Eulogio Casas REHA [id number] [facility] 11:05:00 00:00:00 [id number] [place] [facility] Results Test Description Test Time Test Comments Results Result Comments Source POCT GLUCOSE (AUTOMATED) 2021-07-09 13:28:42 Test Item Value Reference Range Interpretation Comme nts POCT GLU (test code = 5067884642) 198 mg/dL 70-110 H Lab Interpretation (test code = 71399-9) Abnormal [facility] GLUCOSE (AUTOMATED)2021-07-09 13:28:42 Test Item Value Reference Range Interpretation Comments POCT GLU (test code = [id number]) 198 mg/dL 70-110 H Lab Interpretation (test code = Abnormal 46260-3) [facility] [id number] 12:57:00 Test Item Value Reference Range Interpretation Comments POCT Glu (age>30days) (test code = 198 mg/dL 70-110 A 3342) Lab Interpretation (test code = Abnormal 05406-7) [facility] [id number] 12:57:00 Test Item Value Reference Range Interpretation Comments POCT Glu (age>30days) (test code = 198 mg/dL 70-110 A 3342) Lab Interpretation (test code = Abnormal 75718-9) [facility]:04:00 Test Item Value Reference Range Interpretation Comments GLUBED (test code = GLUBED) 130 mg/dL 60-125 H
== END 2021-07-15 22:19 | disposition home or self-care (01) ==
LOC: ER 18:55
PROC: 0JQK0ZZ Repair Left Hand Subcutaneous Tissue and Fascia, Open Approach (ICD-10-PCS; principal; 2021-07-15)
DX: S61.412A Laceration without foreign body of left hand, initial encounter (principal); W54.0XXA Bitten by dog, initial encounter; Y92.009 Unspecified place in unspecified non-institutional (private) residence as the place of occurrence of the external cause; E11.9 Type 2 diabetes mellitus without complications; Z79.4 Long term (current) use of insulin; Z23 Encounter for immunization; Z88.3 Allergy status to other anti-infective agents; Z88.5 Allergy status to narcotic agent; Z88.8 Allergy status to other drugs, medicaments and biological substances
CPT/HCPCS: 90471; 90714; 99284

== ENCOUNTER 2023-06-02 12:11 | Observation (INO) | payer OTHER, MEDICARE ==
--- OUTSIDE RECORDS SUMMARY | 2023-06-02 12:16 | XMS REPORT | Continuity of Care Document ---
:1950 Author Organization [facility] t Address [address] [place] [address] [place] [id number] Care Team Providers Name Role Phone SHERLEY DUVAL Primary Care Physician Unavailable Sherley Duval Attending Clinician Unavailable SEA ARGUETA Attending Clinician Unavailable Eulogio Modi Attending Clinician Unavailable FRIDA MAYA Attending Clinician Unavailable Frida Maya MD Attending Clinician Ovidio Sepulveda Attending Clinician Unavailable Sea Argueta MD Attending Clinician Pob, [facility] Lab Main Attending Clinician Unavailable Doctor Unassigned, [place] Attending Clinician Unavailable Nurse, Adc Pob Immunization Attending Clinician Unavailable Grant Samson DO Attending Clinician GRANT SAMSON Attending Clinician Unavailable Only, Adc Test Attending Clinician Unavailable Daniel Jay MD Attending Clinician DANIEL JAY Attending Clinician Unavailable Ovidio Sepulveda Attending Clinician Unavailable Ovidio Sepulveda Attending Clinician Unavailable Ronnie Bender Attending Clinician SEA ARGUETA Admitting Clinician Unavailable Physician, No Primary Care Admitting Clinician Unavailable Sea Argueta MD Admitting Clinician Ovidio Sepulveda Admitting Clinician Unavailable Sherley Duval Admitting Clinician Unavailable Ronnie Bender Admitting Clinician Payers Payer Name Policy Type Policy Number Effective Date Expiration Date S sarah MEDICARE PART A \T\ [id number] 2013 B 00:00:00 [facility] [id number] 2020 MEDICARE SUPPLEMENT 00:00:00 FOR LIFE [id number] 2015 00:00:00 MEDICARE A B [id number] 2013 00:00:00 [facility] [id number] 2022 HEALTHCARE 00:00:00 Problems Condition Condition Condition Status Onset Resolution Last Treating Co mments Source Name Details Category Date Date Treatment Clinician Date Carcinoma Carcinoma Problem Active 2018-08-31 Memoria of of 02-11 05:00:37 l prostate prostate 00:00: Adnre ybarra (disorder) (disorder) 00 Active 02/12/2016 Problem 08/31/2018 NO XRT
no tx at this time, urologist does bld wk every 3 mo watching psa level, pt says last psa was 7 [facility] Acquired Acquired Problem Active 2018-08-31 Memoria trigger trigger 02-11 05:00:37 l finger finger 00:00: Sacha (disorder) (disorder) 00 Active 02/12/2016 Problem 08/31/2018 left middle finger<br/ >left fourth finger [facility] Sleep Sleep Problem Active 2018-08-31 Memor ia apnea apnea 09-13 05:00:37 l (finding) (finding) 00:00: James frederick Active 00 09/13/2006 Problem 08/31/2018 uses cpap [facility] Diabetes Diabetes Problem Active 2018-08-31 Mem[facility] mellitus mellitus 09-13 05:00:37 l (disorder) (disorder) 00:00: Volodymyr rmann Active 09/13/2006 Problem 08/31/2018 bS range < 150
HG B A1C 8.2
fb s 120-150, 2 oral meds and bydureon pen q wednesday [facility] Gastroesop Gastroeso Problem Active 2018-08-31 Mem[facility] hageal phageal 05:00:37 l reflux reflux Sacha disease disease (disorder) (disorder) Active Problem 08/31/2018 med x1 [facility] Loose body Loose Problem Active 2018-08-31 M emoria (morpholog body 05:00:37 l ic (morpholog Andre n abnormalit ic y) abnormalit y) Active Problem 08/31/2018 left elbow [facility] Scab of Scab of Problem Active 2018-08-31 Me moria skin skin 05:00:37 l (disorder) (disorder) He rmann Active Problem 08/31/2018 right elbow [facility] No known No known Disease Unive rs active active ity of problems problems [facility] Pain in Pain in Problem Resolve 2018-08-31 2018-08-31 Memoria finger finger d 6- 05:00:37 05:00:37 l (finding) (finding) 00:00: Herm yoly Resolved 00 02/12/2016 Problem 08/31/2018 left fourth finger [facility] Methicilli Methicill Problem Resolve 2018-08-31 2018-08-31 Memoria n in d 1- 05:00:37 05:00:37 l resistant resistant 00:00: Herm yoly Staphyloco Staphyloco 00 ccus ccus aureus aureus (organism) (organism) Resolved 09/13/2007 Problem 08/31/2018 [facility] History of Past Illness Condition Condition Condition Status Onset Resolution Last Treating Co mments Source Name Details Category Date Date Treatment Clinician Date Trigger Trigger Problem 2017-092018-08-31 2018-08-31 Memoria finger, finger, 2-17 05:00:37 05:00:37 l left left 06:00: [place] middle middle 00 finger finger 08/29/2018 8 [facility] Allergies, Adverse Reactions, Alerts Allergy Allergy Status Severity Reaction(s) Onset Inactive Treating Comm ents Source Name Type Date Date Clinician CEFTRIAX DRUG Active Other-Cmnt Univ ers ONE INGREDI 3-23 ity of 00:00: [place] [facility] CODEINE DRUG Active Other-Cmnt Unive rs INGREDI 3-23 ity of 00:00: [place] 00 [facility] OFLOXACI DRUG Active Other-Cmnt Univ ers N INGREDI 3-23 ity of 00:00: [place] 00 [facility] TRAMADOL DRUG Active Other-Cmnt Univ ers INGREDI 3-23 ity of 00:00: [place] 00 [facility] METHOCAR DRUG Active Other-Cmnt Univ ers BAMOL INGREDI 3-23 ity of 00:00: [place] 00 [facility] Codeine Drug Active Other - See Upset Univ ers Intolera comments 3-23 stomach ity o f nce 00:00: [place] 00 [facility] Ofloxaci Drug Active Other - See Upset Uni vers n Intolera comments 3-23 stomach ity o f nce 00:00: [place] [facility] Methocar Drug Active Other - See Upset Uni vers bamol Intolera comments 3-23 stomach ity o f nce 00:00: [place] 00 [facility] Ceftriax Drug Active Other - See Upset Uni vers one Intolera comments 3-23 stomach; ity of nce 00:00: [place] 00 [facility] Branch Tramadol Drug Active Other - See Upset Uni vers Intolera comments 3-23 stomach ity o f nce 00:00: [place] 00 [facility] codeine DA [facility] SV [facility] [place] [facility] methocar DA Active SV [facility]- [facility] bamol 2- [place] 00:[facility] floxacil DA Active SV NAUSEA 2018- [facility] royce 2- [place] 00:[facility] tramadol DA Active SV NAUSEA 2018- [facility]- [place] 00:[facility] ceftriax DA Active SV 2018- [facility] one - [place] [facility] No Known DA Active U 2018- [facility] Drug 2- [place] Allergie 00:00: [facility] No Known DA Active U 2018- [facility] Drug 2-20 [place] Allergie 00:00: [facility] codeine DA Active SV NAUSEA 2018- [facility]- [place] 00:[facility] methocar DA Active SV NAUSEA 2018- [facility] bamol 2- [place] 00:00: [facility] ceftriax DA Active SV NAUSEA 2018- [facility] one 2- [place] 00:00[facility] CODEINE DA Active U 2005- [facility]- [place] 00:[facility] FLOXIN DA Active U 2005- [facility] 0-23 [place] 00:[facility] No Known DA Active U 2005- [facility] Contrast 0-23 [place] Allergie 00:00: [facility] No Known DA Active U 2005- [facility] Food 0-23 [place] Allergie 00:00: [facility] No Known DA Active U 2005- [facility] Other 0-23 [place] Allergie 00:00: [facility] ROBAXIN DA Active U 2006- [facility] 0-23 [place] 00:[facility] ROCEPHIN DA Active U 2005- [facility] 0-23 [place] 00:[facility] ULTRAM DA Active U 2005- [facility] 0-23 [place] 00:[facility] VIOXX DA Active U 2005- [facility] 0-23 [place] 00:00: [facility] floxacil DA Active U 2002- [facility] royce 2-17 [place] 00:00: [facility] tramadol DA Active U 2002- [facility] 2-17 [place] 00:[facility]: [facility] valdecox DA Active U 2002- [facility] ib 2-17 [place] 00:00: [facility] NO KNOWN Allergy Active [facility] NO KNOWN Drug Active Univers ALLERGIE Class ity of S [facility] Social History Social Habit Start Date Stop Date Quantity Comments Source Exposure to Not sure [place] of SARS-CoV-2 [facility] (event) Branch Tobacco Comment 2021-12-01 2021-12-01 34 years ago, x Univ ersity of 00:00:00 00:00:00 20 years [facility] Alcohol intake 2021-12-01 2021-12-01 Ex-drinker [place] of 00:00:00 00:00:00 (finding) [facility] Tobacco use and 2021-07-09 2021-07-09 Never used Universit y of exposure 00:00:00 00:00:00 [facility] History of 1998-03-01 Cigarette Smoker Universi ty of tobacco use 00:00:00 [facility] Sex [birth year] [facility] 00:00:00 [facility]00 [facility] Smoking Status Start Date Stop Date Source Unknown if ever smoked Universit y of [facility] Never smoker [facility] Social History 2017-02-22 22:03:18 2017-02-22 22:03:18 [facility] Medications Ordered Filled Start Stop Current Ordering Indication Dosage Frequency Signature Comments Components Source Medication Medication Date Date Medication? Clinician (SIG) Name Name sodium 0 Yes PRN, Univers chloride 12-03 Starting ity of (NS) 14:56: on Wed [place] injection 00 12/03/[address] Until Discontinu ed, Routine, Intra-op neomycin-po 0 Yes PRN, Univer s lymyxin-dex 12-03 Starting ity of amethasone 14:56: on Wed [place] (MAXITROL) 00 12/03/[address] mg/g-10,000 Until unit/g-0.1 Discontinu % ed, ophthalmic Routine, ointment Intra-op dexamethaso 0 Yes PRN, Univer s ne 12-03 Starting ity of (DECADRON 14:56: on Wed [place] PHOSPHATE) 00 12/03/21 at [facility] ica injection [address] [place] [address] Until Discontinu ed, Routine, Intra-op ceFAZolin 0 Yes PRN, Univers (ANCEF) 12-03 Starting ity of injection 14:56: on Wed [place] 00 12/03/[address] Until Discontinu ed, ARLEEN, Intra-op sodium 2021-0 2021- No PRN, Univers chloride 12-03 Starting ity of (NS) 14:56: 17:32 on Wed [place] injection 00 :25 12/03/[address] Until Wed12/03/21 at 1232, Routine, Intra-op neomycin-po 2021-0 2021- No PRN, Unive rs lymyxin-dex 12-03 Starting ity of amethasone 14:56: 17:32 [place] (MAXITROL[place] 00 :25 12/03/21 at [facility] ica [address] [place] [address] mg/g-10,000 Until Wed unit/g-0.1 12/03/21 at % 1232, ophthalmic Routine, ointment Intra-op dexamethaso 2021- No PRN, Unive rs ne 12-03 Starting ity of (DECADRON 14:56: 17:32 on Wed [place] PHOSPHATE) 00 :25 12/03/21 at [facility] ical injection 0956, Branch Until 12/03/21 at 1232, Routine, Intra-op ceFAZolin 2021- No PRN, Univers (ANCEF) 12-03 Starting ity of injection 14:56: 17:32 on Wed [place] 00 :25 12/03/21 at Medical 0956, Branch Until 12/03/21 at 1232, ARLEEN, Intra-op DUOVISC Yes PRN, Univers (DUOVISC 12-03 Starting ity of VISCO 14:50: on Wed ELASTIC) 3 00 12/03/21 at [facility] ical %-4 %(0.5 0950, Branch mL) 1 % Until (0.55 mL) Discontinu intraocular ed, injection Routine, Intra-op DUOVISC 2021- No PRN, Univers (DUOVISC 12-03 Starting ity of VISCO 14:50: 17:32 on Wed ELASTIC) 3 00 :25 12/03/21 at [facility] ical %-4 %(0.5 0950, Branch mL) 1 % Until Wed (0.55 mL) 12/03/21 at intraocular 1232, injection Routine, Intra-op carbachoL Yes PRN, Univers (MIOSTAT) 12-03 Starting ity of 0.01 % 14:49: on Wed [place] intraocular 00 12/03/21 at Nh dical injection 0949, Branch Until Discontinu ed, Routine, Intra-op carbachoL 2021- No PRN, Univers (MIOSTAT) 12-03 Starting ity o f 0.01 % 14:49: 17:32 on Wed [place] intraocular 00 :25 12/03/21 at Nh dical injection 0949, Branch Until 12/03/21 at 1232, Routine, Intra-op EPINEPHrine Yes PRN, Univer s 1:1,000 (1 12-03 Starting ity o f mg/mL) 14:48: on Wed [place] (ADRENALIN) 00 3/23/22 at Nh dical injection 0948, Branch Until Discontinu ed, Routine, Intra-op balanced Yes PRN, Univers salt irrig 12-03 Starting ity o f soln comb1 14:48: on Wed [place] (BSS PLUS) 00 12/03/21 at [facility] ical ophthalmic 0948, Branch solution Until 500 mL bag Discontinu ed, Routine, Intra-op EPINEPHrine 2021- No PRN, Unive rs 1:1,000 (1 12-03 Starting ity of mg/mL) 14:48: 17:32 on Wed (ADRENALIN) 00 :25 12/03/21 at Nh dical injection 0948, Branch Until Wed12/03/21 at 1232, Routine, Intra-op balanced 2021- No PRN, Univers salt irrig 12-03 Starting ity of soln comb1 14:48: 17:32 on Wed [place] (BSS PLUS) 00 :25 12/03/21 at [facility] ica ophthalmic 0948, Branch solution Until Wed 500 mL bag 12/03/21 at 1232, Routine, Intra-op water for Yes PRN, Univers irrigation 12-03 Starting ity o f irrigation 14:40: on Wed [place] solution 00 12/03/21 at Medic al 0940, Branch Until Discontinu ed, Routine, Intra-op water for 2021- No PRN, Univers irrigation 12-03 Starting ity of irrigation 14:40: 17:32 on Wed [place] solution 00 :25 12/03/21 at Medic al 0940, Branch Until Wed12/03/21 at 1232, Routine, Intra-op Hyaluronida Yes PRN, Univer s se, Human 12-03 Starting ity of Recomb. 14:37: on Wed (HYLENEX) 00 12/03/21 at [facility] kayleen injection 0937, Branch Until Discontinu ed, Routine, Intra-op Hyaluronida 2021- No PRN, Unive rs se, Human 12-03 Starting ity o f Recomb. 14:37: 17:32 on Wed [place] (HYLENEX) 00 :25 12/03/21 at Medi kayleen injection 0937, Branch Until Wed12/03/21 at 1232, Routine, Intra-op eye block Yes PRN, Univers syringe 12-03 Starting ity o f mL 14:36: on Wed 00 12/03/21 at [facility] 0936, Branch Until Discontinu ed, Intra-op eye block 2021- No PRN, Univers syringe 12-03 Starting ity of mL 14:36: 17:32 on Wed 00 :25 12/03/21 at [facility] 0936, Branch Until Wed12/03/21 at 1232, Intra-op cyclopent 2021- No .5mL 0.5 mL, Univ ers 1%-tropic 12-03 Right Eye, ity of 1%-phenyl 13:00: 13:02 ONCE, 1 [place] 2.5%-ketor 00 :00 dose, On Medic al 0.5% Wed Branch (MYDRIATIC 12/03/21 at #5) 0800, ophthalmic Routine, solution DSU Pre-op syringe 0.5 mL lactated 2021- No 1000mL at 42 Unive rs ringers IV 12-03 03-23 mL/hr, ity of infusion 13:00: 13:01 1,000 mL, José Miguel as 1,000 mL 00 :00 IV Medical Infusion, Branch ONCE, 1 dose, On Wed12/03/21 at 0800, Routine, DSU Pre-op cyclopent 2021- No .5mL 0.5 mL, Univ ers 1%-tropic 12-03 Right Eye, ity of 1%-phenyl 13:00: 13:02 ONCE, 1 [place] 2.5%-ketor 00 :00 dose, On Medic al 0.5% [facility] Branch (MYDRIATIC 12/03/21 at #5) 0800, ophthalmic Routine, solution DSU Pre-op syringe 0.5 mL lactated 2021- No 1000mL at 42 Unive rs ringers IV 12-03 03-23 mL/hr, ity of infusion 13:00: 13:01 1,000 mL, José Miguel as 1,000 mL 00 :00 IV Medical Infusion, Branch ONCE, 1 dose, On 3/23/22 at 0800, Routine, DSU Pre-op aspirin Yes Take by Univers (ASPIR-81 3-23 mouth. ity of ORAL) 10:32: [address] aspirin Yes Take by Univers (ASPIR-81 3-23 mouth. ity of ORAL) 10:32: [address] aspirin Yes Take by Univers (ASPIR-81 3-21 mouth. ity of ORAL) 14:56: [address] aspirin Yes Take by Univers (ASPIR-81 3-21 mouth. ity of ORAL) 14:56: [address] aspirin Yes Take by Univers (ASPIR-81 3-21 mouth. ity of ORAL) 14:56: [address] aspirin Yes Take by Univers (ASPIR-81 3-21 mouth. ity of ORAL) 14:56: [address] Hyaluronida 2020-09 Yes PRN, Univer s se, Human 0-27 Starting ity of Recomb. 14:36: on Wed [place] (HYLENEX) 07/09/21 Medica l injection at [address] [place] [address] Until Discontinu ed, Routine, Intra-op neomycin-po 2020-09 Yes PRN, Univer s lymyxin-dex 0-27 Starting ity of amethasone 14:36: on Wed [place] (MAXITROL) 07/09/21 Medic al 3.[address] [place] [address] mg/g-10,000 Until unit/g-0.1 Discontinu % ed, ophthalmic Routine, ointment Intra-op eye block 2020-09 Yes PRN, Univers syringe 11 0-27 Starting ity o f mL 14:36: on Wed [place] 07/09/21 Medical at [address] [place] [address] Until Discontinu ed, Intra-op Hyaluronida 2020-09- No PRN, Unive rs se, Human 0-27 10 Starting ity o f Recomb. 14:36: 17:17 on [facility] (HYLENEX) 00 :56 07/09/21 Medica l injection at 0936, [place] Until Wed07/09/21 at 1217, Routine, Intra-op neomycin-po 2020-09- No PRN, Unive rs lymyxin-dex 0-27 10-27 Starting ity of amethasone 14:36: 17:17 on Wed [place] (MAXITROL) 00 :56 07/09/21 Medic al 3.5 at 0936, Branch mg/g-10,000 Until Wed unit/g-0.1 07/09/21 % at 1217, ophthalmic Routine, ointment Intra-op eye block 2020-09- No PRN, Univers syringe 11 007-09 Starting ity of mL 14:36: 17:17 on Wed [place] 00 :56 07/09/21 Medical at 0936, Branch Until Wed07/09/21 at 1217, Intra-op DUOVISC 2020-09 Yes PRN, Univers (DUOVISC 0 Starting ity of VISCO 14:35: on Wed [place] ELASTIC) 3 00 07/09/21 Medic al %-4 %(0.5 at 0935, Branch mL) 1 % Until (0.55 mL) Discontinu intraocular ed, injection Routine, Intra-op dexamethaso 2020-09 Yes PRN, Univer s ne 0 Starting ity of (DECADRON 14:35: on Wed [place] PHOSPHATE) 00 07/09/21 Medic al injection at 0935, Branch Until Discontinu ed, Routine, Intra-op carbachoL 2020-09 Yes PRN, Univers (MIOSTAT) 0 Starting ity of 0.01 % 14:35: on Wed [place] intraocular 00 07/09/21 Medi kayleen injection at 0935, Branch Until Discontinu ed, Routine, Intra-op balanced 2020-09 Yes PRN, Univers salt irrig 027 Starting ity o f soln comb1 14:35: on Wed [place] (BSS PLUS) 00 07/09/21 Medic al ophthalmic at 0935, Branc h solution Until 500 mL bag Discontinu ed, Routine, Intra-op carbachoL 2020-09- No PRN, Univers (MIOSTAT) 007-09 Starting ity o f 0.01 % 14:35: 17:17 on Wed [place] intraocular 00 :56 07/09/21 Medi kayleen injection at 0935, Branch Until Wed07/09/21 at 1217, Routine, Intra-op balanced 2020-09- No PRN, Univers salt irrig 007-09 Starting ity of soln comb1 14:35: 17:17 on Wed [place] (BSS PLUS) 00 :56 07/09/21 Medic al ophthalmic at 0935, Branc h solution Until Wed 500 mL bag 07/09/21 at 1217, Routine, Intra-op DUOVISC 2020-09- No PRN, Univers (DUOVISC 007-09 Starting ity of VISCO 14:35: 17:17 on Wed [place] ELASTIC) 3 00 :56 07/09/21 Medic al %-4 %(0.5 at 0935, Branch mL) 1 % Until Wed (0.55 mL) 07/09/21 intraocular at 1217, injection Routine, Intra-op dexamethaso 2020-09- No PRN, Unive rs ne 007-09 Starting ity of (DECADRON 14:35: 17:17 on Wed [place] PHOSPHATE) 00 :56 07/09/21 Medic al injection at 0935, Branch Until Wed07/09/21 at 1217, Routine, Intra-op lactated 2020-09- No 1000mL at 42 Unive rs ringers IV 0- 10-27 mL/hr, ity of infusion 13:00: 12:56 1,000 mL, José Miguel as 1,000 mL 00 :00 IV Medical Infusion, Branch ONCE, 1 dose, On Wed07/09/21 at 0800, Routine, DSU Pre-op mydriatic 2020-09- No .5mL 0.5 mL, Univ ers #5 07-09 Left Eye, ity of ophthalmic 13:00: 12:55 ONCE, 1 José Miguel as solution 00 :00 dose, On Medical 0.5 mL Wed Branch syringe 07/09/21 at 0800, Routine, DSU Pre-op lactated 2020-09- No 1000mL at 42 Unive rs ringers IV 0- 10-27 mL/hr, ity of infusion 13:00: 12:56 1,000 mL, José Miguel as 1,000 mL 00 :00 IV Medical Infusion, Branch ONCE, 1 dose, On Wed07/09/21 at 0800, Routine, DSU Pre-op mydriatic 2020-09- No .5mL 0.5 mL, Univ ers #5 07-09 Left Eye, ity of ophthalmic 13:00: 12:55 ONCE, 1 José Miguel as solution 00 :00 dose, On Medical 0.5 mL Wed Branch syringe 07/09/21 at 0800, Routine, DSU Pre-op aspirin 2020-09 Yes Take by Univers (ASPIR-81 0-27 mouth. ity of ORAL) 10:17: [address] aspirin 2020-09 Yes Take by Univers (ASPIR-81 0-27 mouth. ity of ORAL) 10:17: [address] aspirin 2020-09 Yes Take by Univers (ASPIR-81 0-27 mouth. ity of ORAL) 10:17: [address] aspirin 2020-09 Yes Take by Univers (ASPIR-81 0-27 mouth. ity of ORAL) 10:17: [address] aspirin 2020-09 Yes Take by Univers (ASPIR-81 0-27 mouth. ity of ORAL) 10:17: [address] aspirin 2020-09 Yes Take by Univers (ASPIR-81 0-22 mouth. ity of ORAL) 10:36: [address] LANTUS Yes Univers SOLOSTAR 06-10 ity of U-100 00:00: [place] INSULIN 100 00 Medical unit/mL (3 Branch mL) injection LANTUS Yes Univers SOLOSTAR 06-10 ity of U-100 00:00: [place] INSULIN 100 00 Medical unit/mL (3 Branch mL) injection LANTUS 2020-0 Yes Univers SOLOSTAR 9 ity of U-100 00:00: [place] INSULIN 100 00 Medical unit/mL (3 Branch mL) injection LANTUS 0 Yes Univers SOLOSTAR 9- ity of U-100 00:00: [place] INSULIN 100 00 Medical unit/mL (3 Branch mL) injection LANTUS 2020-0 Yes Univers SOLOSTAR 9- ity of U-100 00:00: [place] INSULIN 100 00 Medical unit/mL (3 Branch mL) injection LANTUS 2020-0 Yes Univers SOLOSTAR 9 ity of U-100 00:00: [place] INSULIN 100 00 Medical unit/mL (3 Branch mL) injection LANTUS 2020-0 Yes Univers SOLOSTAR 9- ity of U-100 00:00: [place] INSULIN 100 [...] Univers SOLOSTAR 9-28 ity of U-100 00:00: [place] INSULIN 100 00 Medical unit/mL (3 Branch mL) injection BYDUREON Yes Univers BCISE 2 9-10 ity of mg/0.85 mL 00:00: [place] [address] BYREON Yes Univers BCISE 2 9-10 ity of mg/0.85 mL 00:00: [place] [address] BYREON Yes Univers BCISE 2 9-10 ity of mg/0.85 mL 00:00: [place] [facility] BC[facility] 2 9-10 ity of mg/0.85 mL 00:00: [place] [address] BYREON Yes Univers BCISE 2 9-10 ity of mg/0.85 mL 00:00: [place] [address] BYREON Yes Univers BCISE 2 9-10 ity of mg/0.85 mL 00:00: [place] [address] BYREON Yes Univers BCISE 2 9-10 ity of mg/0.85 mL 00:00: [address] BYREON Yes Univers BCISE 2 9-10 ity of mg/0.85 mL 00:00: [place] [address] BYREON Yes Univers BCISE 2 9-10 ity of mg/0.85 mL 00:00: [place] [facility] 00 Medical Branch BYDUREON 2021-0 Yes Univers BCISE 2 9-10 ity of mg/0.85 mL 00:00: [facility] 00 Medical Branch BYDUREON 2021-0 Yes Univers BCISE 2 9-10 ity of mg/0.85 mL 00:00: [facility] 00 Medical Branch BYDUREON 2021-0 Yes Univers BCISE 2 9-10 ity of mg/0.85 mL 00:00: [facility] 00 Medical Branch gabapentin 2021-0 Yes Univers 100 mg 5-27 ity of capsule 00:00: [place] [address] Medical Branch gabapentin 2021-0 Yes Univers 100 mg 5-27 ity of capsule 00:00: [place] [address] Medical Branch gabapentin 2021-0 Yes Univers 100 mg 5-27 ity of capsule 00:00: [place] [address] Medical Branch gabapentin 2021-0 Yes Univers 100 mg 5-27 ity of capsule 00:00: [place] [address] Medical Branch gabapentin 2021-0 Yes Univers 100 mg 5-27 ity of capsule 00:00: [place] [address] Medical Branch gabapentin 2021-0 Yes Univers 100 mg 5-27 ity of capsule 00:00: [place] [address] Medical Branch gabapentin 2021-0 Yes Univers 100 mg 5-27 ity of capsule 00:00: [place] [address] Medical Branch gabapentin 2021-0 Yes Univers 100 mg 5-27 ity of capsule 00:00: [place] [address] Medical Branch gabapentin 2021-0 Yes Univers 100 mg 5-27 ity of capsule 00:00: [place] [address] Medical Branch gabapentin 2021-0 Yes Univers 100 mg 5-27 ity of capsule 00:00: [place] [address] Medical Branch gabapentin 2021-0 Yes Univers 100 mg 5-27 ity of capsule 00:00: [place] [address] Medical Branch gabapentin 2021-0 Yes Univers 100 mg 5-27 ity of capsule 00:00: [place] 00 Medical Branch empaglifloz 2021-0 Yes Univer s in 1-18 ity of (JARDIANCE) 00:00: [place] 25 mg Tab 00 Medical Branch metFORMIN 2021-0 Yes Univers 1,000 mg 1-18 ity of tablet 00:00: [place] 00 Medical Branch empaglifloz 2021-0 Yes Univer s in 1-18 ity of (JARDIANCE) 00:00: [place] 25 mg Tab 00 Medical Branch metFORMIN 2020-0 Yes Univers 1,000 mg 1-18 ity of tablet 00:00: Medical Branch empaglifloz 0 Yes Univer s in 1-18 ity of (JARDIANCE) 00:00: [place] 25 mg Tab 00 Medical Branch metFORMIN 2020-0 Yes Univers 1,000 mg 1-18 ity of tablet 00:00: Medical Branch empaglifloz 0 Yes Univer s in 1-18 ity of (JARDIANCE) 00:00: [place] 25 mg Tab 00 Medical Branch metFORMIN 0 Yes Univers 1,000 mg 1-18 ity of tablet 00:00: Medical Branch empaglifloz 0 Yes Univer s in 1-18 ity of (JARDIANCE) 00:00: [place] 25 mg Tab 00 Medical Branch metFORMIN 0 Yes Univers 1,000 mg 1-18 ity of tablet 00:00: [place] Medical Branch empaglifloz 0 Yes Univer s in 1-18 ity of (JARDIANCE) 00:00: [place] 25 mg Tab 00 Medical Branch metFORMIN 2020-0 Yes Univers 1,000 mg 1-18 ity of tablet 00:00: Medical Branch empaglifloz 0 Yes Univer s in 1-18 ity of (JARDIANCE) 00:00: [place] 25 mg Tab 00 Medical Branch metFORMIN 2020-0 Yes Univers 1,000 mg 1-18 ity of tablet 00:00: Medical Branch empaglifloz 0 Yes Univer s in 1-18 ity of (JARDIANCE) 00:00: [place] 25 mg Tab 00 Medical Branch empaglifloz 0 Yes Univer s in 1-18 ity of (JARDIANCE) 00:00: [place] 25 mg Tab 00 Medical Branch metFORMIN 2020-0 Yes Univers 1,000 mg 1-18 ity of tablet 00:00: [place] Medical Branch metFORMIN 2020-0 Yes Univers 1,000 mg 1-18 ity of tablet 00:00: Medical Branch empaglifloz 0 Yes Univer s in 1-18 ity of (JARDIANCE) 00:00: [place] 25 mg Tab 00 Medical Branch metFORMIN 2021-0 Yes [facility] 1,000 mg 1-18 ity of tablet 00:00: [place] 00 [facility] empaglifloz 0 Yes Univer s in 1-18 ity of ([place]) 00:00: [place] 25 mg Tab 00 [facility] metFORMIN 2020-0 Yes Univers 1,000 mg 1-18 ity of tablet 00:00: [place] [address] [facility] empaglifloz 0 Yes Univer s in 1-18 ity of ([place]) 00:00: [place] 25 mg Tab 00 [facility] metFORMIN 2020-0 Yes Univers 1,000 mg 1-18 ity of tablet 00:00: [place] [address] [facility] lansoprazol 2020-0 Yes Univer s e 30 mg 9-21 ity of capsule 00:00: [place] [address] [facility] lansoprazol 2020-0 Yes Univer s e 30 mg 9-21 ity of capsule 00:00: [place] [address] [facility] lansoprazol 2020-0 Yes Univer s e 30 mg 9-21 ity of capsule 00:00: [place] [address] [facility] lansoprazol 2020-0 Yes Univer s e 30 mg 9-21 ity of capsule 00:00: [place] [address] [facility] lansoprazol 2020-0 Yes Univer s e 30 mg 9-21 ity of capsule 00:00: [place] [address] [facility] lansoprazol 2020-0 Yes Univer s e 30 mg 9-21 ity of capsule 00:00: [place] [address] [facility] lansoprazol 2020-0 Yes Univer s e 30 mg 9-21 ity of capsule 00:00: [place] [address] [facility] lansoprazol 2020-0 Yes Univer s e 30 mg 9-21 ity of capsule 00:00: [place] [address] [facility] lansoprazol 2020-0 Yes Univer s e 30 mg 9-21 ity of capsule 00:00: [place] [address] [facility] lansoprazol 2020-0 Yes Univer s e 30 mg 9-21 ity of capsule 00:00: [place] [address] [facility] lansoprazol 2020-0 Yes Univer s e 30 mg 9-21 ity of capsule 00:00: [place] [address] [facility] lansoprazol 2020-0 Yes Univer s e 30 mg 9-21 ity of capsule 00:00: [address] 2017-09 No 800 mL, Memoria Medication 2-17 Soln-IV, l 18:56: IV, Once, first dose 08/29/18 12:56:00 STUDENT SERVICES VICE PRESIDENT, stop date 08/29/18 12:56:00 STUDENT SERVICES VICE PRESIDENT [facility] 2017-09 No 800 mL, Memoria Medication 2-17 Soln-IV, l 18:56: IV, Once, first dose 08/29/18 12:56:00 STUDENT SERVICES VICE PRESIDENT, stop date 08/29/18 12:56:00 STUDENT SERVICES VICE PRESIDENT [facility] 2017-09 No 800 mL, Memoria Medication 2-17 Soln-IV, l 18:56: IV, Once, first dose 08/29/18 12:56:00 STUDENT SERVICES VICE PRESIDENT, stop date 08/29/18 12:56:00 STUDENT SERVICES VICE PRESIDENT Promethazin 2017-09 No 12.5 mg = M emoria e 2-17 0.5 mL, l 18:46: Injection, IM, Once PRN for vomiting, first dose 08/29/18 12:46:00 STUDENT SERVICES VICE PRESIDENT Ondansetron 2017-09 No 4 mg = 2 Me moria 2-17 mL, l 18:46: Injection, IV Push, q15min PRN for nausea, order duration: 2 doses, first dose 08/29/18 12:46:00 STUDENT SERVICES VICE PRESIDENT, stop date Limited # of times Dilaudid 2017-09 No 0.5 mg = Memor ia 2-17 0.5 mL, l 18:46: Injection, IV Push, q10min PRN for pain severe (7-10), first dose 08/29/18 12:46:00 STUDENT SERVICES VICE PRESIDENT Demerol HCl 2017-09 No 12.5 mg = M emoria 2-17 0.5 mL, l 18:46: Injection, IV Push, Once PRN for shivers, first dose 08/29/18 12:46:00 STUDENT SERVICES VICE PRESIDENT LR 1,000 mL 2017-09 No 1,000 mL, M emoria 2-17 IV, 75 l 18:46: mL/hr, start date 08/29/18 12:46:00 STUDENT SERVICES VICE PRESIDENT Saline Lock 2017-09 No 10 mL, Talon althea Flush 2-17 Soln, IV l 18:46: Push, As 00 Indicated PRN for flush, first dose 08/29/18 12:46:00 STUDENT SERVICES VICE PRESIDENT Promethazin 2017-09 No 12.5 mg = M emoria e 2-17 0.5 mL, l 18:46: Injection, [place] 00 IM, Once PRN for vomiting, first dose 08/29/18 12:46:00 STUDENT SERVICES VICE PRESIDENT Ondansetron 2017-09 No 4 mg = 2 Me moria 2-17 mL, l 18:46: Injection, Sach[place] 00 IV Push, q15min PRN for nausea, order duration: 2 doses, first dose 08/29/18 12:46:00 STUDENT SERVICES VICE PRESIDENT, stop date Limited # of times Dilaudid 2017-09 No 0.5 mg = Memor ia 2-17 0.5 mL, l 18:46: Injection, Sacha 00 IV Push, q10min PRN for pain severe (7-10), first dose 08/29/18 12:46:00 STUDENT SERVICES VICE PRESIDENT Demerol HCl 2017-09 No 12.5 mg = M emoria 2-17 0.5 mL, l 18:46: Injection, Sacha 00 IV Push, Once PRN for shivers, first dose 08/29/18 12:46:00 STUDENT SERVICES VICE PRESIDENT LR 1,000 mL 2017-09 No 1,000 mL, M emoria 2-17 IV, 75 l 18:46: mL/hr, [place] 00 start date 08/29/18 12:46:00 STUDENT SERVICES VICE PRESIDENT Saline Lock 2017-09 No 10 mL, Talon althea Flush 2-17 Soln, IV l 18:46: Push, As [place] Indicated PRN for flush, first dose 08/29/18 12:46:00 STUDENT SERVICES VICE PRESIDENT Promethazin 2017-09 No 12.5 mg = M emoria e 2-17 0.5 mL, l 18:46: Injection, [place] 00 IM, Once PRN for vomiting, first dose 08/29/18 12:46:00 STUDENT SERVICES VICE PRESIDENT Ondansetron 2017-09 No 4 mg = 2 Me moria 2-17 mL, l 18:46: Injection, Sacha 00 IV Push, q15min PRN for nausea, order duration: 2 doses, first dose 08/29/18 12:46:00 STUDENT SERVICES VICE PRESIDENT, stop date Limited # of times Dilaudid 2017-09 No 0.5 mg = Memor ia 2-17 0.5 mL, l 18:46: Injection, Sacha 00 IV Push, q10min PRN for pain severe (7-10), first dose 08/29/18 12:46:00 STUDENT SERVICES VICE PRESIDENT Demerol HCl 2017-09 No 12.5 mg = M emoria 2-17 0.5 mL, l 18:46: Injection, [place] 00 IV Push, Once PRN for shivers, first dose 08/29/18 12:46:00 STUDENT SERVICES VICE PRESIDENT LR 1,000 mL 2017-09 No 1,000 mL, M emoria 2-17 IV, 75 l 18:46: mL/hr, Sacha 00 start date 08/29/18 12:46:00 STUDENT SERVICES VICE PRESIDENT Saline Lock 2017-09 No 10 mL, Talon althea Flush 2-17 Soln, IV l 18:46: Push, As [place] 00 Indicated PRN for flush, first dose 08/29/18 12:46:00 STUDENT SERVICES VICE PRESIDENT fentaNYL 2017-09 No 50 mcg = 1 Mem oria 2-17 mL, l 17:57: Injection, [place] 00 IV, Once, first dose 08/29/18 11:57:00 STUDENT SERVICES VICE PRESIDENT, stop date 08/29/18 11:57:00 STUDENT SERVICES VICE PRESIDENT fentaNYL 2017-09 No 50 mcg = 1 Mem oria 2-17 mL, l 17:57: Injection, [place] 00 IV, Once, first dose 08/29/18 11:57:00 STUDENT SERVICES VICE PRESIDENT, stop date 08/29/18 11:57:00 STUDENT SERVICES VICE PRESIDENT fentaNYL 2017-09 No 50 mcg = 1 Mem oria 2-17 mL, l 17:57: Injection, [place] 00 IV, Once, first dose 08/29/18 11:57:00 STUDENT SERVICES VICE PRESIDENT, stop date 08/29/18 11:57:00 STUDENT SERVICES VICE PRESIDENT fentaNYL 2017-09 No 50 mcg = 1 Mem oria 2-17 mL, l 17:38: Injection, [place] 00 IV, Once, first dose 08/29/18 11:38:00 STUDENT SERVICES VICE PRESIDENT, stop date 08/29/18 11:38:00 STUDENT SERVICES VICE PRESIDENT fentaNYL 2017-09 No 50 mcg = 1 Mem oria 2-17 mL, l 17:38: Injection, [place] 00 IV, Once, first dose 08/29/18 11:38:00 STUDENT SERVICES VICE PRESIDENT, stop date 08/29/18 11:38:00 STUDENT SERVICES VICE PRESIDENT fentaNYL 2017-09 No 50 mcg = 1 Mem oria 2-17 mL, l 17:38: Injection, [place] 00 IV, Once, first dose 08/29/18 11:38:00 STUDENT SERVICES VICE PRESIDENT, stop date 08/29/18 11:38:00 STUDENT SERVICES VICE PRESIDENT fentaNYL 2017-09 No 50 mcg = 1 Mem oria 2-17 mL, l 17:29: Injection, [place] 00 IV, Once, first dose 08/29/18 11:29:00 STUDENT SERVICES VICE PRESIDENT, stop date 08/29/18 11:29:00 STUDENT SERVICES VICE PRESIDENT fentaNYL 2017-09 No 50 mcg = 1 Mem oria 2-17 mL, l 17:29: Injection, Sach[place] 00 IV, Once, first dose 08/29/18 11:29:00 STUDENT SERVICES VICE PRESIDENT, stop date 08/29/18 11:29:00 STUDENT SERVICES VICE PRESIDENT fentaNYL 2017-09 No 50 mcg = 1 Mem oria 2-17 mL, l 17:29: Injection, [place] 00 IV, Once, first dose 08/29/18 11:29:00 STUDENT SERVICES VICE PRESIDENT, stop date 08/29/18 11:29:00 STUDENT SERVICES VICE PRESIDENT vancomycin 2017-09 No 500 mg, Talon althea 2-17 Powder-Inj l 17:07: , IV, Sach[place] 00 Once, first dose 08/29/18 11:07:00 STUDENT SERVICES VICE PRESIDENT, stop date 08/29/18 11:07:00 STUDENT SERVICES VICE PRESIDENT vancomycin 2017-09 No 500 mg, Talon althea 2-17 Powder-Inj l 17:07: , IV, [place] 00 Once, first dose 08/29/18 11:07:00 STUDENT SERVICES VICE PRESIDENT, stop date 08/29/18 11:07:00 STUDENT SERVICES VICE PRESIDENT vancomycin 2017-09 No 500 mg, Talon althea 2-17 Powder-Inj l 17:07: , IV, [place] 00 Once, first dose 08/29/18 11:07:00 STUDENT SERVICES VICE PRESIDENT, stop date 08/29/18 11:07:00 STUDENT SERVICES VICE PRESIDENT vancomycin 2017-09 No 1 gm, Memori a 2-17 Powder-Inj l 16:32: , IV, [place] 00 Once, first dose 08/29/18 10:32:00 STUDENT SERVICES VICE PRESIDENT, stop date 08/29/18 10:32:00 STUDENT SERVICES VICE PRESIDENT dexamethaso 2017-09 No 8 mg = 2 Me moria ne 2-17 mL, l 16:32: Injection, Sach[place] 00 IV, Once, first dose 08/29/18 10:32:00 STUDENT SERVICES VICE PRESIDENT, stop date 08/29/18 10:32:00 STUDENT SERVICES VICE PRESIDENT vancomycin 2017- No 1 gm, Memori a 2-17 Powder-Inj l 16:32: , IV, [place] 00 Once, first dose 08/29/18 10:32:00 STUDENT SERVICES VICE PRESIDENT, stop date 08/29/18 10:32:00 STUDENT SERVICES VICE PRESIDENT dexamethaso 2017- No 8 mg = 2 Me moria ne 2-17 mL, l 16:32: Injection, Sach[place] 00 IV, Once, first dose 08/29/18 10:32:00 STUDENT SERVICES VICE PRESIDENT, stop date 08/29/18 10:32:00 STUDENT SERVICES VICE PRESIDENT vancomycin 2017- No 1 gm, Memori a 2-17 Powder-Inj l 16:32: , IV, [place] 00 Once, first dose 08/29/18 10:32:00 STUDENT SERVICES VICE PRESIDENT, stop date 08/29/18 10:32:00 STUDENT SERVICES VICE PRESIDENT dexamethaso 2017- No 8 mg = 2 Me moria ne 2-17 mL, l 16:32: Injection, [place] 00 IV, Once, first dose 08/29/18 10:32:00 STUDENT SERVICES VICE PRESIDENT, stop date 08/29/18 10:32:00 STUDENT SERVICES VICE PRESIDENT lidocaine 2017- No 5 mL, Memoria 2-17 Injection, l 16:25: IV, Once, first dose 08/29/18 10:25:00 STUDENT SERVICES VICE PRESIDENT, stop date 08/29/18 10:25:00 STUDENT SERVICES VICE PRESIDENT propofol 2017- No 140 mg = Memor ia 2-17 14 mL, l 16:25: Emulsion, [place] 00 IV, Once, first dose 08/29/18 10:25:00 STUDENT SERVICES VICE PRESIDENT, stop date 08/29/18 10:25:00 STUDENT SERVICES VICE PRESIDENT lidocaine 2018- No 5 mL, Memoria 2-17 Injection, l 16:25: IV, Once, first dose 08/29/18 10:25:00 STUDENT SERVICES VICE PRESIDENT, stop date 08/29/18 10:25:00 STUDENT SERVICES VICE PRESIDENT propofol 2018- No 140 mg = Memor ia 2-17 14 mL, l 16:25: Emulsion, [place] 00 IV, Once, first dose 08/29/18 10:25:00 STUDENT SERVICES VICE PRESIDENT, stop date 08/29/18 10:25:00 STUDENT SERVICES VICE PRESIDENT lidocaine 2017- No 5 mL, Memoria 2-17 Injection, l 16:25: IV, Once, first dose 08/29/18 10:25:00 STUDENT SERVICES VICE PRESIDENT, stop date 08/29/18 10:25:00 STUDENT SERVICES VICE PRESIDENT propofol 2017- No 140 mg = Memor ia 2-17 14 mL, l 16:25: Emulsion, Sach[place] 00 IV, Once, first dose 08/29/18 10:25:00 STUDENT SERVICES VICE PRESIDENT, stop date 08/29/18 10:25:00 STUDENT SERVICES VICE PRESIDENT midazolam 2017-09 No 2 mg = 2 Talon althea 2-17 mL, l 16:12: Injection, [place] 00 IV, Once, first dose 08/29/18 10:12:00 STUDENT SERVICES VICE PRESIDENT, stop date 08/29/18 10:12:00 STUDENT SERVICES VICE PRESIDENT fentaNYL 2017-09 No 100 mcg = Talon althea 2-17 2 mL, l 16:12: Injection, [place] 00 IV, Once, first dose 08/29/18 10:12:00 STUDENT SERVICES VICE PRESIDENT, stop date 08/29/18 10:12:00 STUDENT SERVICES VICE PRESIDENT scopolamine 2017-09 No 1 patches, Memoria 2-17 Film-ER, l 16:12: IV, Once, first dose 08/29/18 10:12:00 STUDENT SERVICES VICE PRESIDENT, stop date 08/29/18 10:12:00 STUDENT SERVICES VICE PRESIDENT metoclopram 2017-09 No 10 mg = 2 M emoria mojgan 2-17 mL, l 16:12: Injection, IV, Once, first dose 08/29/18 10:12:00 STUDENT SERVICES VICE PRESIDENT, stop date 08/29/18 10:12:00 STUDENT SERVICES VICE PRESIDENT ondansetron 2017-09 No 4 mg = 2 Me moria 2-17 mL, l 16:12: Injection, [place] 00 IV, Once, first dose 08/29/18 10:12:00 STUDENT SERVICES VICE PRESIDENT, stop date 08/29/18 10:12:00 STUDENT SERVICES VICE PRESIDENT famotidine 2017-09 No 20 mg, Memor ia 2-17 Injection, l 16:12: IV, Once, first dose 08/29/18 10:12:00 STUDENT SERVICES VICE PRESIDENT, stop date 08/29/18 10:12:00 STUDENT SERVICES VICE PRESIDENT midazolam 2017-09 No 2 mg = 2 Talon althea 2-17 mL, l 16:12: Injection, [place] 00 IV, Once, first dose 08/29/18 10:12:00 STUDENT SERVICES VICE PRESIDENT, stop date 08/29/18 10:12:00 STUDENT SERVICES VICE PRESIDENT fentaNYL 2017- No 100 mcg = Talon althea 2-17 2 mL, l 16:12: Injection, [place] 00 IV, Once, first dose 08/29/18 10:12:00 STUDENT SERVICES VICE PRESIDENT, stop date 08/29/18 10:12:00 STUDENT SERVICES VICE PRESIDENT scopolamine 2017-09 No 1 patches, Memoria 2-17 Film-ER, l 16:12: IV, Once, first dose 08/29/18 10:12:00 STUDENT SERVICES VICE PRESIDENT, stop date 08/29/18 10:12:00 STUDENT SERVICES VICE PRESIDENT metoclopram 2018- No 10 mg = 2 M emoria mojgan 2-17 mL, l 16:12: Injection, IV, Once, first dose 08/29/18 10:12:00 STUDENT SERVICES VICE PRESIDENT, stop date 08/29/18 10:12:00 STUDENT SERVICES VICE PRESIDENT ondansetron 2017-09 No 4 mg = 2 Me moria 2-17 mL, l 16:12: Injection, IV, Once, first dose 08/29/18 10:12:00 STUDENT SERVICES VICE PRESIDENT, stop date 08/29/18 10:12:00 STUDENT SERVICES VICE PRESIDENT famotidine 2017-09 No 20 mg, Memor ia 2-17 Injection, l 16:12: IV, Once, first dose 08/29/18 10:12:00 STUDENT SERVICES VICE PRESIDENT, stop date 08/29/18 10:12:00 STUDENT SERVICES VICE PRESIDENT midazolam 2017- No 2 mg = 2 Talon althea 2-17 mL, l 16:12: Injection, IV, Once, first dose 08/29/18 10:12:00 STUDENT SERVICES VICE PRESIDENT, stop date 08/29/18 10:12:00 STUDENT SERVICES VICE PRESIDENT fentaNYL 2017- No 100 mcg = Talon althea 2-17 2 mL, l 16:12: Injection, [place] 00 IV, Once, first dose 08/29/18 10:12:00 STUDENT SERVICES VICE PRESIDENT, stop date 08/29/18 10:12:00 STUDENT SERVICES VICE PRESIDENT scopolamine 2017- No 1 patches, Memoria 2-17 Film-ER, l 16:12: IV, Once, first dose 08/29/18 10:12:00 STUDENT SERVICES VICE PRESIDENT, stop date 08/29/18 10:12:00 STUDENT SERVICES VICE PRESIDENT metoclopram 2017- No 10 mg = 2 M emoria mojgan 2-17 mL, l 16:12: Injection, Sach[place] 00 IV, Once, first dose 08/29/18 10:12:00 STUDENT SERVICES VICE PRESIDENT, stop date 08/29/18 10:12:00 STUDENT SERVICES VICE PRESIDENT ondansetron 2017-09 No 4 mg = 2 Me moria 2-17 mL, l 16:12: Injection, [place] 00 IV, Once, first dose 08/29/18 10:12:00 STUDENT SERVICES VICE PRESIDENT, stop date 08/29/18 10:12:00 STUDENT SERVICES VICE PRESIDENT famotidine 2017-09 No 20 mg, Memor ia 2-17 Injection, l 16:12: IV, Once, first dose 08/29/18 10:12:00 STUDENT SERVICES VICE PRESIDENT, stop date 08/29/18 10:12:00 STUDENT SERVICES VICE PRESIDENT Vancomycin 2017-09 No MRSA Memoria 2-17 colonizati l 16:00: on or [place] 00 infection, 1.5 gm, IV Piggyback, Once, infuse over 60 minutes, first dose 08/29/18 10:00:00 STUDENT SERVICES VICE PRESIDENT, stop date 08/29/18 10:00:00 STUDENT SERVICES VICE PRESIDENT Cefazolin 2017-09 No 120 kg, Memor ia 2-17 Prophylaxi l 16:00: s Vancomycin 2017-09 No MRSA Memoria 2-17 colonizati l 16:00: on or Sacha 00 infection, 1.5 gm, IV Piggyback, Once, infuse over 60 minutes, first dose 08/29/18 10:00:00 STUDENT SERVICES VICE PRESIDENT, stop date 08/29/18 10:00:00 STUDENT SERVICES VICE PRESIDENT Cefazolin 2017-09 No 120 kg, Memor ia 2-17 Prophylaxi l 16:00: s [place] 00 Vancomycin 2017-09 No MRSA Memoria 2-17 colonizati l 16:00: on or [place] 00 infection, 1.5 gm, IV Piggyback, Once, infuse over 60 minutes, first dose 08/29/18 10:00:00 STUDENT SERVICES VICE PRESIDENT, stop date 08/29/18 10:00:00 STUDENT SERVICES VICE PRESIDENT Cefazolin 2017-09 No 120 kg, Memor ia 2-17 Prophylaxi l 16:00: s [place] 00 Sulfamethox 2017-09 Yes 1 tabs, Mem oria azole 800 2-17 Oral, BID, l MG / 15:25: X 7 days, Sacha Trimethopri 00 # 14 tabs, m 160 MG 0 Oral Tablet Refill(s), [Bactrim] Pharmacy: [place] [address] Sulfamethox 2017-09 Yes 1 tabs, Mem oria azole 800 2-17 Oral, BID, l MG / 15:25: X 7 days, [place] Trimethopri 00 # 14 tabs, m 160 MG 0 Oral Tablet Refill(s), [Bactrim] Pharmacy: [place] [address] Sulfamethox 2017-09 Yes 1 tabs, Mem oria azole 800 2-17 Oral, BID, l MG / 15:25: X 7 days, [place] Trimethopri 00 # 14 tabs, m 160 MG 0 Oral Tablet Refill(s), [Bactrim] Pharmacy: [place] [address] Cephalexin 2017-09 Yes 500 mg = 1 M emoria 500 MG Oral 2-17 caps, l Capsule 15:23: Oral, BID, Herm yoly [Keflex] 00 # 14 caps, 0 Refill(s), Pharmacy: [place] [address] Cephalexin 2017-09 Yes 500 mg = 1 M emoria 500 MG Oral 2-17 caps, l Capsule 15:23: Oral, BID, Herm yoly [Keflex] 00 # 14 caps, 0 Refill(s), Pharmacy: [place] [address] Cephalexin 2017-09 Yes 500 mg = 1 M emoria 500 MG Oral 2-17 caps, l Capsule 15:23: Oral, BID, Herm yoly [Keflex] 00 # 14 caps, 0 Refill(s), Pharmacy: [place] [address] Lidocaine 2017-09 No 0.2 mL, Memor ia 2% 0.2 mL 2-17 Injection, l IV Start 15:07: Subcutaneo Her quiroz [[facility]] 00 us, Once PRN for other (see comment), first dose 08/29/18 9:07:00 STUDENT SERVICES VICE PRESIDENT LR 1,000 mL 2017-09 No 1,000 mL, M emoria 2-17 IV, 30 l 15:07: mL/hr, [place] 00 start date 08/29/18 9:07:00 STUDENT SERVICES VICE PRESIDENT Lidocaine 2017-09 No 0.2 mL, Memor ia 2% 0.2 mL 2-17 Injection, l IV Start 15:07: Subcutaneo Her quiroz [[place]] 00 us, Once PRN for other (see comment), first dose 08/29/18 9:07:00 STUDENT SERVICES VICE PRESIDENT LR 1,000 mL 2017-09 No 1,000 mL, M emoria 2-17 IV, 30 l 15:07: mL/hr, Sacha start date 08/29/18 9:07:00 STUDENT SERVICES VICE PRESIDENT Lidocaine 2017-09 No 0.2 mL, Memor ia 2% 0.2 mL 2-17 Injection, l IV Start 15:07: Subcutaneo Her quiroz [[place]] 00 us, Once PRN for other (see comment), first dose 08/29/18 9:07:00 STUDENT SERVICES VICE PRESIDENT LR 1,000 mL 2017-09 No 1,000 mL, M emoria 2-17 IV, 30 l 15:07: mL/hr, Sacha start date 08/29/18 9:07:00 STUDENT SERVICES VICE PRESIDENT gabapentin 2017-09 Yes Oral, Memori a 2-11 Daily, 0 l 17:39: Refill(s), [place] 00 pain clobetasol 2017-09 Yes 1 dana, Memor ia 0.05% 2-11 TOP, BID, l topical 17:39: 0 [place] cream 00 Refill(s) mometasone 2017-09 Yes 2 sprays, Me moria furoate 2-11 Nasal, l 0.05 17:39: Daily, PRN Sacha MG/ACTUAT 00 for Metered allergy Dose Nasal symptoms, [place] # 17 gm, 0 [Nasonex] Refill(s) gabapentin 2017-09 Yes Oral, Memori a 2-11 Daily, 0 l 17:39: Refill(s), [place] 00 pain clobetasol 2017-09 Yes 1 dana, Memor ia 0.05% 2-11 TOP, BID, l topical 17:39: 0 [place] cream 00 Refill(s) mometasone 2017-09 Yes 2 sprays, Me moria furoate 2-11 Nasal, l 0.05 17:39: Daily, PRN [place] MG/ACTUAT 00 for Metered allergy Dose Nasal symptoms, [place] # 17 gm, 0 [Nasonex] Refill(s) gabapentin 2017-09 Yes Oral, Memori a 2-11 Daily, 0 l 17:39: Refill(s), [place]a 00 pain clobetasol 2017-09 Yes 1 dana, Memor ia 0.05% 2-11 TOP, BID, l topical 17:39: 0 [place] cream 00 Refill(s) mometasone 2017-09 Yes 2 sprays, Me moria furoate 2-11 Nasal, l 0.05 17:39: Daily, PRN [place] MG/ACTUAT 00 for Metered allergy Dose Nasal symptoms, [place] # 17 gm, 0 [Nasonex] Refill(s) lidocaine [...] 14:00:00 CDT, stop date 07/07/18 14:00:00 CDT lidocaine 2017-09 Yes 100 mg = Talon [...] 14:00:00 CDT, stop date 07/07/18 14:00:00 CDT lidocaine 2017-09 Yes 100 mg = Talon althea 1% 0-25 10 mL, l injection 19:00: Injection, He rmann solution 20 00 IM, Once, mL MDV first dose 07/07/18 14:00:00 CDT, stop date 07/07/18 14:00:00 CDT Multihance 2017-09 Yes 15 mL, Memor ia 0.15 mL 0-25 Injection, l with 19:00: IA, Once, [place] Omnipaque 00 first dose 240 mg 07/07/18 14:00:00 CDT, stop date 07/07/18 14:00:00 CDT Sulfamethox 2017-0 No 1 tabs, Mem oria azole 800 6-14 Oral, BID, l MG / 16:16: X 7 days, Sacha Trimethopri 00 # 14 tabs, m 160 MG 0 Oral Tablet Refill(s), [Bactrim] Pharmacy: [facility] Sulfamethox 0 No 1 tabs, Mem oria azole 800 6-14 Oral, BID, l MG / 16:16: X 7 days, [place] Trimethopri 00 # 14 tabs, m 160 MG 0 Oral Tablet Refill(s), [Bactrim] Pharmacy: [facility] Sulfamethox No 1 tabs, Mem oria azole 800 6-14 Oral, BID, l MG / 16:16: X 7 days, Sacha Trimethopri 00 # 14 tabs, m 160 MG 0 Oral Tablet Refill(s), [Bactrim] Pharmacy: [facility] [place] [address] Bydureon Yes 2 mg/65 Memori a Pen 6-12 ml, l 22:22: Subcutaneo [place] 00 us, qFriday, 0 Refill(s), diabetes empaglifloz Yes 25 mg = 1 M emoria in 25 MG 6-12 tabs, l Oral Tablet 22:22: Oral, qAM, Sacha [[place]] 00 0 Refill(s), diabetes lansoprazol 2017 Yes 30 mg = 1 M emoria e 30 mg 6-12 caps, l oral 22:22: Oral, qAM, [place] delayed 00 0 release Refill(s), capsule GERD Metformin Yes 1,000 mg = Me moria hydrochlori 6-12 1 tabs, l de 1000 MG 22:22: Oral, BID, H ermann Oral Tablet 00 0 Refill(s), diabetes Bydureon Yes 2 mg/65 Memori a Pen 6-12 ml, l 22:22: Subcutaneo Sach[place] 00 us, qFriday, 0 Refill(s), diabetes empaglifloz 2017-0 Yes 25 mg = 1 M emoria in 25 MG 6-12 tabs, l Oral Tablet 22:22: Oral, qAM, [place] [[place]] 00 0 Refill(s), diabetes lansoprazol 2017-0 Yes 30 mg = 1 M emoria e 30 mg 6-12 caps, l oral 22:22: Oral, qAM, [place] delayed 00 0 release Refill(s), capsule GERD Metformin 2017-0 Yes 1,000 mg = Me moria hydrochlori 6-12 1 tabs, l de 1000 MG 22:22: Oral, BID, H ermann Oral Tablet 00 0 Refill(s), diabetes Bydureon 2017- Yes 2 mg/65 Memori a Pen 6-12 ml, l 22:22: Subcutaneo [place] 00 us, qFriday, 0 Refill(s), diabetes empaglifloz 2017- Yes 25 mg = 1 M emoria in 25 MG 6-12 tabs, l Oral Tablet 22:22: Oral, qAM, Sacha [[place]] 00 0 Refill(s), diabetes lansoprazol 2017-0 Yes 30 mg = 1 M emoria e 30 mg 6-12 caps, l oral 22:22: Oral, qAM, [place] delayed 00 0 release Refill(s), capsule GERD Metformin 2017-0 Yes 1,000 mg = Me moria hydrochlori 6-12 1 tabs, l de 1000 MG 22:22: Oral, BID, H ermann Oral Tablet 00 0 Refill(s), diabetes Vital Signs Vital Name Observation Time Observation Value Comments Source Heart rate 2021-12-03 15:20:00 77 /min [facility] Respiratory rate 2021-12-03 15:20:00 19 /min [facility] Oxygen saturation in 2021-12-03 15:20:00 94 /min [facility] Arterial blood by [facility] Pulse oximetry Branch Systolic blood 2021-12-03 15:19:00 156 mm[Hg] Anjum toledo [facility] Diastolic blood 2021-12-03 15:19:00 58 mm[Hg] [facility] Body temperature 2021-12-03 15:05:00 36.61 Marianela [facility] [place] [facility] Body height 2021-11-19 16:31:00 182.9 cm [facility] Body weight 2021-11-19 16:31:00 133.8 kg [facility] BMI 2021-11-19 16:31:00 40.01 kg/m2 [facility] Systolic blood 2021-12-03 12:48:00 152 mm[Hg] [facility] [place] [facility] Diastolic blood 2021-12-03 12:48:00 66 mm[Hg] [facility] [place] [facility] Heart rate 2021-12-03 12:48:00 86 /min [facility] Body temperature 2021-12-03 12:48:00 36.56 Marianela [facility] [place] [facility] Respiratory rate 2021-12-03 12:48:00 16 /min [facility] Oxygen saturation in 2021-12-03 12:48:00 96 /min [facility] blood by [employer] [facility] Body height 2021-11-19 16:31:00 182.9 cm [facility] Body weight 2021-11-19 16:31:00 133.8 kg [facility] BMI 2021-11-19 16:31:00 40.01 kg/m2 [facility] Systolic blood 2021-07-09 15:03:00 143 mm[Hg] [facility] Diastolic blood 2021-07-09 15:03:00 66 mm[Hg] [facility] Heart rate 2021-07-09 15:03:00 59 /min [facility] Respiratory rate 2021-07-09 15:03:00 16 /min [facility] Oxygen saturation in 2021-07-09 15:03:00 93 /min [facility] blood by [facility] Body temperature 2021-07-09 12:54:00 36.22 Marianela [facility] Body height 2021-07-04 15:30:00 182.9 cm [facility] Body weight 2021-07-04 15:30:00 133.811 kg [facility] BMI 2021-07-04 15:30:00 40.01 kg/m2 [facility] Systolic blood 2021-07-09 14:53:00 147 mm[Hg] Univer [facility]ity of pressure [facility] Diastolic blood 2021-07-09 14:53:00 84 mm[Hg] [facility]ive [facility] pressure [facility] Heart rate 2021-07-09 14:53:00 63 /min [facility] Respiratory rate 2021-07-09 14:53:00 16 /min [facility] Oxygen saturation in 2021-07-09 14:53:00 94 /min [facility] Arterial blood by [facility] Pulse oximetry [place] Body temperature 2021-07-09 12:54:00 36.22 Marianela [facility] Body height 2021-07-04 15:30:00 182.9 cm [facility] Body weight 2021-07-04 15:30:00 133.811 kg [facility] BMI 2021-07-04 15:30:00 40.01 kg/m2 [facility] Systolic (mm Hg) 2018-08-29 21:20:00 [place] Diastolic (mm Hg) 2018-08-29 21:20:00 Mem [facility] [place] Respitory Rate 2018-08-29 21:20:00 Memori al [place] Systolic (mm Hg) 2018-08-29 20:40:00 Talon rial [place] Diastolic (mm Hg) 2018-08-29 20:40:00 Mem [facility] [place] Heart Rate 2018-08-29 20:40:00 [facility] [place] Respitory Rate 2018-08-29 20:40:00 Memori al [place] Systolic (mm Hg) 2018-08-29 20:30:00 Talon rial [place] Diastolic (mm Hg) 2018-08-29 20:30:00 Mem orial [place] Respitory Rate 2018-08-29 20:30:00 Memori al [place] Heart Rate 2018-08-29 20:30:00 [facility] [place] Heart Rate 2018-08-29 20:20:00 [facility] Sacha Temperature Oral (F) 2018-08-29 18:40:00 36.7 [facility] 2018-08-29 15:04:00 182.88 cm [facility] Temperature Oral (F) 2018-08-29 15:04:00 37 [facility] 2018-08-23 17:36:00 182.88 cm [facility] Procedures Procedure Date / Time Performing Source Performed Clinician PELVIS WITH & WITHOUT IV 2023-05-12 [address] [facility] 11:40:00 [facility] PHACOEMULSIFICATION OF 2021-12-03 Sea Argueta [facility] CATARACT WITH INTRAOCULAR 14:27:00 Medica l Branch LENS IMPLANT POCT GLUCOSE (AUTOMATED) 2021-12-[address] [facility] 12:55:00 Medical Branch POCT GLUCOSE (AUTOMATED) 2021-12-[address] [facility] 12:55:00 Medical Branch ASSIGNMENT OF BENEFITS 2021-12-01 Doctor Unassigned, [facility] 20:00:39 [place] [facility] SARS-COV-2 COVID-19 2021-08-26 Doctor Unassigned, [facility] VACCINE,0.3ML,IM (PFIZER) 21:53:15 [place] [facility] PHACOEMULSIFICATION OF 2021-07-09 Sea Argueta [facility] CATARACT WITH INTRAOCULAR 14:09:00 Medica l [place] LENS IMPLANT POCT GLUCOSE(AGE >30DAYS) 2021-07-09 Ivory Cunningham [facility] 12:57:00 Medical Branch POCT GLUCOSE(AGE >30DAYS) 2021-07-09 Ivory Cunningham [facility] 12:57:00 Medical Branch POCT GLUCOSE (AUTOMATED) 2021-07-[address] [facility] 12:56:00 Medical Branch POCT GLUCOSE (AUTOMATED) 2021-07-[address] [facility] 12:56:00 Medical [place] DAY SURGERY - ADC 2021-07-09 Doctor Unassigned, [facility] 05:01:00 [place] [facility] COVID-19 (ID NOW RAPID 2021-07-07 Sea Argueta [facility] TESTING) 19:36:00 Medical Branch CONSENT/REFUSAL FOR DIAGNOSIS 2021-06-30 Doctor Unassigned, [facility] T[facility]ATMENT 22:07:02 [place] [facility] CONSENT/REFUSAL FOR DIAGNOSIS 2021-06-30 Doctor Unassigned, [facility] 22:07:02 [place] [facility] ASSIGNMENT OF BENEFITS 2021-06-30 Doctor Camden [facility] 22:06:48 [place] [facility] ASSIGNMENT OF BENEFITS 2021-06-30 Doctor Soledadssdevyn [facility] 22:06:48 [place] [facility] CONSENT/REFUSAL FOR DIAGNOSIS 2021-06-30 Doctor Soledadssdevyn [facility] 22:06:31 [place] [facility] CONSENT/REFUSAL FOR DIAGNOSIS 2021-06-30 Doctor Unassigned [facility] 22:06:31 [place] [facility] ASSIGNMENT OF BENEFITS 2021-06-30 Doctor Camden [facility] 22:06:19 [place] [facility] ASSIGNMENT OF BENEFITS 2021-06-30 Doctor Camden [facility] 22:06:19 [place] [facility] NOTICE OF BILLING PRACTICES 2021-06-30 Doctor Camden [facility] FOR MEDICARE PATIENTS 22:06:00 [place] [facility] anch NOTICE OF BILLING PRACTICES 2021-06-30 Doctor Camden [facility] FOR MEDICARE PATIENTS 22:06:00 [place] [facility] anch [facility] PATIENT FINANCIAL POLICY 2021-06-30 Doctor Hannah [facility] 22:05:01 [place] [facility] PATIENT FINANCIAL POLICY 2021-06-30 Doctor Camden [facility] 22:05:01 [place] [facility] NO SHOW OR MISSED APPOINTMENT 2021-06-30 Doctor Camden [facility] POLICY ACKNOWLEDGEMENT 22:04:36 [place] [facility] NO SHOW OR MISSED APPOINTMENT 2021-06-30 Doctor Camden [facility] POLICY ACKNOWLEDGEMENT 22:04:36 [place] [facility] NOTICE OF PRIVACY PRACTICES 2021-06-30 Doctor Camden [facility] 22:04:20 [place] [facility] NOTICE OF PRIVACY PRACTICES 2021-06-30 Doctor Camden [facility] 22:04:20 [place] [facility] CONSENT/REFUSAL FOR DIAGNOSIS 2021-06-30 Doctor Camden [facility] TREATMENT 22:04:08 [place] [facility] CONSENT/REFUSAL FOR DIAGNOSIS 2021-06-30 Doctor Unassigned, [facility] 22:04:08 [place] [facility] ASSIGNMENT OF BENEFITS 2021-06-30 Doctor Unassigned, [facility] 22:03:56 [place] [facility] ASSIGNMENT OF BENEFITS 2021-06-30 Doctor Unassigned, [facility] 22:03:56 [place] [facility] ARTHROSCOPY ELBOW W/COMPLETE 2018-08-29 Mem [place] [place] SYNOVECTOMY [id number] 16:47:00 (Left)<sup>1</sup> ARTHROSCOPY ELBOW W/REMOVAL 2018-08-29 [place] LOOSE BODY 14750 16:47:00 (Left)<sup>2</sup> TENDON SHEATH INCISION (EG. 2018-08-29 [place] FOR TRIGGER FINGER) [id number] 16:47:00 (Left)<sup>3</sup> Plan of Care Planned Activity Planned Date Details Comments Source Future Scheduled 2023-05-14 Influenza Vaccine (#1) [facility] 00:00:00 [code = Influenza Medical Ce nter Vaccine (#1)] Future Scheduled 2022-09-[address] [facility] 00:00:00 (12+) [code = Medical Center DEPRESSION SCREENING (12+)] Future Scheduled 2022-09-13 FALLS RISK SCREENING [facility] 00:00:00 [code = FALLS RISK Medical C enter SCREENING] Future Scheduled 2021-10-21 COVID-19 VACCINE (4 - [facility] 00:[facility]00 Booster for Pfizer Medical C enter series) [code = COVID-19 VACCINE (4 - Booster for Pfizer series)] Future Scheduled 2014-09-[address] [facility] [facility] 00:00:00 WELLNESS (YEAR 2 or Medical Center FIRST YEAR if no IPPE) [code = MEDICARE ANNUAL WELLNESS (YEAR 2 or FIRST YEAR if no IPPE)] Future Scheduled 2013 PNEUMOCOCCAL 65+ YRS ([address] [facility] 00:00:00 - PCV) [code = Medical Cente r PNEUMOCOCCAL 65+ YRS (1 - PCV)] Future Scheduled 1998 SHINGLES VACCINES ([address] [facility] 00:00:00 2) [code = SHINGLES Medical Center VACCINES (1 of 2)] Future Scheduled 1967 DTAP/TDAP/TD VACCINES [facility] 00:00:00 (1 - Tdap) [code = Medical C enter DTAP/TDAP/TD VACCINES (1 - Tdap)] Future Scheduled 1966 HEPATITIS C SCREENING [facility] 00:00:00 [code = HEPATITIS C [facility] Center SCREENING] Future Scheduled [address] [facility] 00:00:00 Counseling and Medical Cente r Screening (12+) [code = Tobacco Cessation Counseling and Screening (12+)] Future Scheduled 1948 Screening for malignant [facility] 00:00:00 neoplasm of colon Medical Ce nter (procedure) [code = 531314611] Future Scheduled 1948 Screening for malignant [facility] 00:00:00 neoplasm of colon Medical Ce nter (procedure) [code = 839304226] Future Scheduled 1948 Screening for malignant [facility] 00:00:00 neoplasm of colon Medical Ce nter (procedure) [code = 347342504] Future Scheduled 1948 Screening for malignant [facility] 00:00:00 neoplasm of colon Medical Ce nter (procedure) [code = 463165474] Future Scheduled 1950 Sigmoidoscopy [code = [facility] 00:00:00 Sigmoidoscopy] Medical Cente r Future Scheduled 1948 CT Colonography (combo) [facility] 00:00:00 [code = CT Colonography [facility] (combo)] Encounters Start End Encounter Admission Attending Care Care Encounter Source Date/Time Date/Time Type Type Clinicians Facility Department ID 2023-03-10 Outpatient Mukund [facility] [id number] 2 Common 14:25:01 Sherley [id number] [facility] 2023-03-08 Outpatient Mukund, [facility] [id number] 2 Common 11:14:01 Sherley [id number] [facility] 2023-03-03 Outpatient Mukund, [facility] [id number] 2 Common 07:05:00 Sherley [id number] [facility] 2021-10-08 Outpatient Mukund [facility] [id number] 2 Common 13:14:41 Sherley [id number] [facility] 2021-07-17 [facility] [id number] Univers 15:45:01 SEA arsenio [facility] 2021-07-15 [facility] [id number] Univers 07:43:54 SEA [facility] 2019-09-13 Inpatient Eulogio Casas HCATO REHA [id number] [facility] 00:07:00 30 [facility] 2023-05-12 2023-05-12 Outpatient BIA [facility] [id number] [facility] 08:54:33 23:59:00 FRIDA 2023-05-12 2023-05-12 [facility] [id number] 08:54:33 23:59:00 Encounter [facility] 2023-04-29 2023-04-29 Outside [facility] [id number] 00:00:00 00:00:00 Orders [facility] 2021-12-08 2021-12-08 Outpatient Elective Coco [facility] [id number] [facility] 16:59:00 16:59:00 Ovidio 28 2021-12-03 2021-12-03 Outpatient [facility] [id number] Univers 07:38:00 10:32:00 SEA [facility] 2021-12-03 2021-12-03 [facility] [id number] Univers 07:38:00 10:32:00 Encounter Sea TORRES 350.1.13.10 ity of [place] 4.2.7.2.686 Sergio s SURGICAL [id number] [address] 2021-12-03 2021-12-03 Surgery [facility] [id number] Univers 08:49:00 09:29:00 Sea TORRES 350.1.13.10 [place] [id number] [facility] 020 Branch 2021-12-01 2021-12-01 Medical Claims Specialist Christiano, Sunday Lab Main [facility] 1.2.8 40.114 [id number] Univers 15:15:00 15:30:00 Visit Sea Argueta 350.1.13.1 0 [place] of [place] PROF[place] [id number] Nh dical NAL 353 [facility] 2021-12-01 2021-12-01 Outpatient R KENDALL [facility] [id number] Univers 15:15:00 15:15:00 SEA arsenio [facility] 2021-12-01 2021-12-01 Orders Doctor JAIRON [id number] Univers 00:00:00 00:00:00 Only Unassigned, GABINO 350.1.13.10 ity of [place] [facility] 4.2.7.2.686 José Miguel as [id number] [facility] 009 [place] 2021-08-26 2021-08-26 Imm/Inj Nurse, [facility] Pob Immunization [facility] [id number] Univers 15:29:02 15:29:22 Visit Grant Samson 350.1.13 .10 [place] [id number] Nh dical NAL 421 [facility] 2021-08-26 2021-08-26 Outpatient R MALI [facility] [id number] Univers 09:40:00 15:29:22 GRANT mcknight [facility] 2021-07-21 2021-07-21 Laboratory Only, [facility] Test [facility] 1.2.840. 114 [id number] Univers 11:13:32 11:28:32 Only Daniel Jay 350.1.13.10 [place] [id number] [facility] 353 [place] 2021-07-21 2021-07-21 Outpatient R MISTY [facility] [id number] Univers 11:15:00 11:15:00 DANIEL wilkinson [facility] 2021-07-09 2021-07-09 Hospital [facility] [id number] Univers 07:47:00 10:16:00 Encounter Sea Villalobos Brian 350.1.13.10 ity of [place] Surgical [id number] [facility] 071 Branch 2021-07-09 2021-07-09 Surgery [facility] 1.2.840.114 [id number] Univers 09:17:00 09:56:00 Sea Villalobos BRIAN 350.1.13.10 [place] of [place]ICAL [id number] [facility] 020 Branch 2021-07-09 2021-07-09 Orders Doctor JAIRON 1.2.840.114 [id number] Univers 00:00:00 00:00:00 Only Unassigned, GABINO 350.1.13.10 ity of [place] [facility] 4.2.7.2.686 José Miguel as [phone] [facility] 009 Branch 2021-07-07 2021-07-07 Laboratory Only, Adc Test [facility] 1.2.840. 114 [id number] Univers 14:30:36 14:45:36 Only KendallSea 350.1.13.1 0 ity of [place].2.7.2.[place] [id number] [facility] 353 Branch 2021-07-07 2021-07-07 Outpatient R KENDALL [facility] [id number] Univers 14:30:00 14:30:00 SEA itarsenio [facility] 2021-06-30 2021-06-30 Medical Claims Specialist Christiano, Adc Lab Main [facility] 1.2.8 40.114 [id number] Univers 17:10:11 17:25:11 Visit Sea Argueta 350.1.13.1 0 ity of [place] 4.2.[place].2.[place] Professio [id number] Nh dic[address] 2021-06-30 2021-06-30 Outpatient R KENDALL [facility] [id number] Univers 16:15:00 16:15:00 SEA mcknight [facility] 2020-05-14 2020-05-14 Outpatient Ovidio Sepulveda [facility] [id number] 17:37:00 23:59:00 VandaOvidio gallego [facility] 2019-11-23 2019-11-23 Outpatient Eulogio Casas REHA Y000 [id number] [facility] 13:10:00 13:10:00 04 [facility] 2019-09-05 2019-09-12 Outpatient Euloigo Casas REHA Y000 [id number] [facility] 11:05:00 00:00:00 67 [facility] 2018-08-29 2018-08-29 Outpatient nullFlavo [facility] [id number] Memoria 14:03:27 21:20:00 r [facility] 2018-08-29 2018-08-29 Outpatient nullFlavo [facility] [id number] Memoria 14:03:27 21:20:00 r [facility] 2018-08-29 2018-08-29 Outpatient nullFlavo [facility] [id number] Memoria 08:03:27 15:20:00 lily Goncalves 2018-08-29 2018-08-29 Outpatient Napoleon, [id number] 08:03:27 15:20:00 Ronnie Trent 2018-07-07 2018-07-08 Outpatient nullFlavo [facility] [id number] Memoria 16:39:16 04:59:59 lily [facility] 2018-07-07 2018-07-08 Outpatient nullFlavo [facility] 6924 [id number] Memoria 16:39:16 04:59:59 r [facility] 2018-07-07 2018-07-07 Outpatient nullFlavo [facility] [id number] Memoria 11:39:16 23:59:59 lily lolis Sacha 2018-07-07 2018-07-07 Outpatient Napoleon [id number] 11:39:16 23:59:59 Ronnie Barb Daniel Results Test Test Test Results Result Source Description Time Comments Comments MR PELVIS WITH 2023-04- & WITHOUT IV 31 [facility] 1950 Sex: M EXA M: MRI of the Prostate WITHOUT and WITH intravenous contrast.TECHNIQUE: Multiplanar and multisequence MR images of the Pelvis areobtained before and after intravenous contrast administration. Contrastis administered to evaluate neoplasm and vasculature. INDICATION: Assess for cancer of prostate with intermediate recurrencerisk COMPARISON: None.FINDINGS:The diffusion-weighted imaging is nondiagnostic due to susceptibilityartifact in the bilateral total hip arthroplasties.PROSTATE: The prostate measures 5.6 x 3.8 x 5.5 cm (61 mL). A mass inthe prostate extends from the apex to the base and from 3-9 o'clock.This mass measures 2.8 cm increased length. There is invasion into theleft neurovascular bundle from the mass in the left base as seen onseries 13 image 13. This does abut but not definitely invade the leftseminal vesicle.SEMINAL VESICLES: Unremarkable.LYMPH NODES: No pelvic lymphadenopathy.BLADDER: Unremarkable.RECTUM: Unremarkable.PERITONEUM/RETROPER ITONEUM: No free fluid.BONES AND SOFT TISSUES: Bilateral hip arthroplasty.IMPRESSION:Evaluati on limited, particularly on the echo planar imaging sequencesdue to bilateral hip arthroplasty susceptibility artifact.1. A mass which extends from the prostate base to the apex measures 2.8cm with invasion of the left neurovascular bundle at the left base. Thisdoes abut but not definitely invade the left seminal vesicle. PI-RADS 52. No lymphadenopathy3. Moderate prostatomegalyElectronically Signed By: Florentino Weaver05/13/2023 16:12 CDTWorkstation Name: [id number] POCT GLUCOSE (AUTOMATED) 2021-12-03 12:58:36 Test Item Value Reference Range Interpretation Comme nts POCT GLU (test code = 6503669761) 248 mg/dL 70-110 H Lab Interpretation (test code = 03586-5) Abnormal [facility] GLUCOSE (AUTOMATED)2021-12-03 12:58:36 Test Item Value Reference Range Interpretation Comments POCT GLU (test code = 2569025429) 248 mg/dL 70-110 H Lab Interpretation (test code = Abnormal 05169-7) [facility] GLUCOSE (AUTOMATED)2021-07-09 13:28:42 Test Item Value Reference Range Interpretation Comments POCT GLU (test code = 0971295499) 198 mg/dL 70-110 H Lab Interpretation (test code = Abnormal 90454-1) [facility] GLUCOSE (AUTOMATED)2021-07-09 13:28:42 Test Item Value Reference Range Interpretation Comments POCT GLU (test code = 4373212511) 198 mg/dL 70-110 H Lab Interpretation (test code = Abnormal 72003-1) [facility] Fwkfpgf4381-28-38 12:57:00 Test Item Value Reference Range Interpretation Comments POCT Glu (age>30days) (test code = 198 mg/dL 70-110 A 3342) Lab Interpretation (test code = Abnormal 81856-4) [facility] Brgpxdb0591-60-02 12:57:00 Test Item Value Reference Range Interpretation Comments POCT Glu (age>30days) (test code = 198 mg/dL 70-110 A 3342) Lab Interpretation (test code = Abnormal 71174-8) [facility] 10:04[facility]00 Test Item Value Reference Range Interpretation Comments GLUBED (test code = GLUBED) 130 mg/dL 60-125 H [id number] 15:27:00 Test Item Value Reference Range Interpretation Comments Blood Glucose, Capillary (test code = 188 74-106 Blood Glucose, Capillary) [facility] HospitalSirmxfgMIDYSGCNOF7779-15-79 15:27:00 Test Item Value Reference Range Interpretation Comments Blood Glucose, Capillary (test code = 188 74-106 Blood Glucose, Capillary) [facility] HospitalErgerjpAPXLBSMPYY7704-46-03 15:27:00 Test Item Value Reference Range Interpretation Comments Blood Glucose, Capillary (test code = 188 74-106 Blood Glucose, Capillary) [facility] HospitalCjpshgyQALAZWALNJ9300-04-88 18:12:00 Test Item Value Reference Range Interpretation Comments Monocyte # (test code = 0.4 See_Comment [Au tomated message] The Monocyte #) system which ge nerated this result tra nsmitted reference range : <=0.8. The reference r jack was not used to int erpret this result as normal/abnormal . [facility] HospitalRmamspcOMFMYGWUNQ6015-90-75 18:12:00 Test Item Value Reference Range Interpretation Comments Lymphocyte # (test code = Lymphocyte #) 1.8 1.0-5.5 [facility] HospitalHtfinshFGTXWPFLMC4571-19-49 18:12:00 Test Item Value Reference Range Interpretation Comments Neutrophil % (test code = Neutrophil %) 55.9 45.0-75.0 [facility] HospitalLzggccqVTRTDBUVYX0421-59-22 18:12:00 Test Item Value Reference Range Interpretation Comments Eosinophil % (test code 0.1 See_Comment [Au tomated message] The = Eosinophil %) system which generated this result tra nsmitted reference range : <=0.5. The reference r jack was not used to int erpret this result as normal/abnormal . [facility] HospitalVcyyruyMHALILOXHX0963-36-68 18:12:00 Test Item Value Reference Range Interpretation Comments Neutrophil # (test code = Neutrophil #) 3.0 1.5-8.1 [facility] HospitalUkfovbnYJZXVNZPQO8478-92-97 18:12:00 Test Item Value Reference Range Interpretation Comments Basophil % (test code = 0.8 See_Comment [Au tomated message] The Basophil %) system which ge nerated this result tra nsmitted reference range : <=1.0. The reference r jack was not used to int erpret this result as normal/abnormal . [facility] HospitalPjhealxFYYSELAZTB6835-40-24 18:12:00 Test Item Value Reference Range Interpretation Comments Eosinophil # (test code 2.2 See_Comment [Au tomated message] The = Eosinophil #) system which generated this result tra nsmitted reference range : <=4.0. The reference r jack was not used to int erpret this result as normal/abnormal . [facility] HospitalUllryqwHMVSADCEDN8181-70-23 18:12:00 Test Item Value Reference Range Interpretation Comments Lymphocyte % (test code = Lymphocyte %) 33.9 20.0-40.0 [facility] HospitalDdrwbvgSLJZMHOVGX7243-94-89 18:12:00 Test Item Value Reference Range Interpretation Comments Monocyte % (test code = Monocyte %) 7.2 2.0-12.0 [facility] HospitalGwvzmjsQFVCMUXKHR9510-33-55 18:12:00 Test Item Value Reference Range Interpretation Comments MCV (test code = MCV) 86.4 80.0-94.0 [facility] HospitalAtovlrxPDSDAYNQTJ0086-90-81 18:12:00 Test Item Value Reference Range Interpretation Comments Hematocrit (test code = Hematocrit) 44.3 42.0-54.0 [facility] HospitalGknbzggBRNEJOCEKY1139-57-02 18:12:00 Test Item Value Reference Range Interpretation Comments Hemoglobin (test code = Hemoglobin) 14.8 14.0-18.0 [facility] HospitalHpnuqaoXOTAJIUFSV3988-45-65 18:12:00 Test Item Value Reference Range Interpretation Comments White Blood Count (test code = White 5.4 3.7-10.4 Blood Count) [facility] HospitalDwznyahVIEACQFLFS0044-58-16 18:12:00 Test Item Value Reference Range Interpretation Comments Red Blood Cell Count (test code = Red 5.12 4.70-6.10 Blood Cell Count) [facility] HospitalOhnrflsFKZQVEBCXN9429-48-19 18:12:00 Test Item Value Reference Range Interpretation Comments Platelet (test code = Platelet) 163 133-450 [facility] HospitalCryvmmtQAEVEVZWUL3848-05-79 18:12:00 Test Item Value Reference Range Interpretation Comments MPV (test code = MPV) 9.8 7.4-10.4 [facility] HospitalFpjldyrITTZXIYGIO7200-50-60 18:12:00 Test Item Value Reference Range Interpretation Comments MCHC (test code = MCHC) 33.5 32.0-36.0 [facility] HospitalZfnhouoMEPXYFDNWF3375-13-39 18:12:00 Test Item Value Reference Range Interpretation Comments RDW (test code = RDW) 14.6 11.5-14.5 [facility] HospitalOhboyhbQGISFMGMDG2851-78-04 18:12:00 Test Item Value Reference Range Interpretation Comments MCH (test code = MCH) 29.0 pg 27.0-31.0 [facility] HospitalXeqisbbCAGIEXMCPT0150-34-05 18:12:00 Test Item Value Reference Range Interpretation Comments Results (test code = Reported (08/23/18 Results) 12:12 PM) [facility] HospitalAvhyuagIGXWUYMRWV9365-92-90 18:12:00 Test Item Value Reference Range Interpretation Comments Monocyte # (test code = 0.4 See_Comment [Au tomated message] The Monocyte #) system which ge nerated this result tra nsmitted reference range : <=0.8. The reference r jack was not used to int erpret this result as normal/abnormal . [facility] HospitalHyzmpgoICVGUAXZEM3915-40-16 18:12:00 Test Item Value Reference Range Interpretation Comments Lymphocyte # (test code = Lymphocyte #) 1.8 1.0-5.5 [facility] HospitalTqyvcwpWAGWFUZTQE5754-79-84 18:12:00 Test Item Value Reference Range Interpretation Comments Neutrophil % (test code = Neutrophil %) 55.9 45.0-75.0 [facility] HospitalDdmbrasADGRFZVLJX3627-11-37 18:12:00 Test Item Value Reference Range Interpretation Comments Eosinophil % (test code 0.1 See_Comment [Au tomated message] The = Eosinophil %) system which generated this result tra nsmitted reference range : <=0.5. The reference r jack was not used to int erpret this result as normal/abnormal . [id number] 18:12:00 Test Item Value Reference Range Interpretation Comments Neutrophil # (test code = Neutrophil #) 3.0 1.5-8.1 [facility] Hospit[id number] 18:12:00 Test Item Value Reference Range Interpretation Comments Basophil % (test code = 0.8 See_Comment [Au tomated message] The Basophil %) system which ge nerated this result tra nsmitted reference range : <=1.0. The reference r jack was not used to int erpret this result as normal/abnormal . [facility] Hospit[id number] 18:12:00 Test Item Value Reference Range Interpretation Comments Eosinophil # (test code 2.2 See_Comment [Au tomated message] The = Eosinophil #) system which generated this result tra nsmitted reference range : <=4.0. The reference r jack was not used to int erpret this result as normal/abnormal . [facility] HospitalFdqokygWYOVHAQMJZ7916-04-06 18:12:00 Test Item Value Reference Range Interpretation Comments Lymphocyte % (test code = Lymphocyte %) 33.9 20.0-40.0 [facility] HospitalIziylbgYXZRIGHDRV9405-24-18 18:12:00 Test Item Value Reference Range Interpretation Comments Monocyte % (test code = Monocyte %) 7.2 2.0-12.0 [facility] HospitalLzcfthhAUKZZLPBTP8092-75-35 18:12:00 Test Item Value Reference Range Interpretation Comments MCV (test code = MCV) 86.4 80.0-94.0 [facility] HospitalDyvyvrpTFTQTRJNHP8958-77-57 18:12:00 Test Item Value Reference Range Interpretation Comments Hematocrit (test code = Hematocrit) 44.3 42.0-54.0 [facility] HospitalChmlwxwXGWLLJXSZL0962-72-60 18:12:00 Test Item Value Reference Range Interpretation Comments Hemoglobin (test code = Hemoglobin) 14.8 14.0-18.0 [facility] HospitalVqngrlzSNTAYSXETV9308-94-95 18:12:00 Test Item Value Reference Range Interpretation Comments Monocyte # (test code = Monocyte #) 0.4 <=0.8 [facility] HospitalUbwckhdIVQBWAQCPA5092-98-03 18:12:00 Test Item Value Reference Range Interpretation Comments White Blood Count (test code = White 5.4 3.7-10.4 Blood Count) [facility] HospitalZzailcvZLRIFFKPSJ8427-84-18 18:12:00 Test Item Value Reference Range Interpretation Comments Lymphocyte # (test code = Lymphocyte #) 1.8 1.0-5.5 [facility] HospitalNrnkdiwFDPOQTPTGX1776-46-30 18:12:00 Test Item Value Reference Range Interpretation Comments Neutrophil % (test code = Neutrophil %) 55.9 45.0-75.0 [facility] HospitalExrswdrQRYSOXLRMF4392-65-13 18:12:00 Test Item Value Reference Range Interpretation Comments Eosinophil % (test code = Eosinophil %) 0.1 <=0.5 [facility] HospitalZkphrrsWYEHEJPRIK7779-30-26 18:12:00 Test Item Value Reference Range Interpretation Comments Neutrophil # (test code = Neutrophil #) 3.0 1.5-8.1 [facility] HospitalZpffnfpUMLYEKODVF6618-89-07 18:12:00 Test Item Value Reference Range Interpretation Comments Basophil % (test code = Basophil %) 0.8 <=1.0 [facility] HospitalJvlfizuSEOGQQMUQH3760-89-32 18:12:00 Test Item Value Reference Range Interpretation Comments Eosinophil # (test code = Eosinophil #) 2.2 <=4.0 [place] [address]-12-11 18:12:00 Test Item Value Reference Range Interpretation Comments Lymphocyte % (test code = Lymphocyte %) 33.9 20.0-40.0 [facility] HospitalNfacqomBKKTKUGUOV3691-92-95 18:12:00 Test Item Value Reference Range Interpretation Comments Monocyte % (test code = Monocyte %) 7.2 2.0-12.0 [facility] HospitalOethpjhPSQRXYYBPA7836-94-26 18:12:00 Test Item Value Reference Range Interpretation Comments MCV (test code = MCV) 86.4 80.0-94.0 [facility] HospitalEzkrzvcWSKPZOPEPC2297-18-43 18:12:00 Test Item Value Reference Range Interpretation Comments Hematocrit (test code = Hematocrit) 44.3 42.0-54.0 [facility] HospitalSgkxyixVCRZPCUGED9768-11-81 18:12:00 Test Item Value Reference Range Interpretation Comments Red Blood Cell Count (test code = Red 5.12 4.70-6.10 Blood Cell Count) [facility] HospitalOgypxdiHAJBTNRMBM4409-10-64 18:12:00 Test Item Value Reference Range Interpretation Comments Hemoglobin (test code = Hemoglobin) 14.8 14.0-18.0 [facility] HospitalAqcrizzOKCEHMDISR5026-49-53 18:12:00 Test Item Value Reference Range Interpretation Comments White Blood Count (test code = White 5.4 3.7-10.4 Blood Count) [facility] HospitalWysbxvhLIZHIFKZZG1153-16-98 18:12:00 Test Item Value Reference Range Interpretation Comments Red Blood Cell Count (test code = Red 5.12 4.70-6.10 Blood Cell Count) [facility] Hospit[id number] 18:12:00 Test Item Value Reference Range Interpretation Comments Platelet (test code = Platelet) 163 133-450 [facility] HospitalFrzcvceDQEKIIBMLD7795-88-91 18:12:00 Test Item Value Reference Range Interpretation Comments MPV (test code = MPV) 9.8 7.4-10.4 [facility] HospitalPxsdatnJGQAFXRGUQ8992-54-59 18:12:00 Test Item Value Reference Range Interpretation Comments MCHC (test code = MCHC) 33.5 32.0-36.0 [facility] HospitalTurhhqzRXSFMLAAHX5608-74-29 18:12:00 Test Item Value Reference Range Interpretation Comments RDW (test code = RDW) 14.6 11.5-14.5 [facility] HospitalKorzjmcNUAFWRPXZN7344-61-14 18:12:00 Test Item Value Reference Range Interpretation Comments MCH (test code = MCH) 29.0 pg 27.0-31.0 [facility] Hospit[id number] 18:12:00 Test Item Value Reference Range Interpretation Comments Results (test code = Reported (08/23/18 Results) 12:12 PM) [facility] Hospit[id number] 18:12:00 Test Item Value Reference Range Interpretation Comments Platelet (test code = Platelet) 163 133-450 [facility] Hospit[id number] 18:12:00 Test Item Value Reference Range Interpretation Comments MPV (test code = MPV) 9.8 7.4-10.4 [facility] HospitalGboxbeuCUHFOBOSRI7905-50-12 18:12:00 Test Item Value Reference Range Interpretation Comments MCHC (test code = MCHC) 33.5 32.0-36.0 [facility] HospitalHjnidqnMYTDEIMWZK2001-42-77 18:12:00 Test Item Value Reference Range Interpretation Comments RDW (test code = RDW) 14.6 11.5-14.5 [facility] HospitalDrmgizvDVGPBSSGPR7051-91-54 18:12:00 Test Item Value Reference Range Interpretation Comments MCH (test code = MCH) 29.0 pg 27.0-31.0 [facility] HospitalR[id number] 18:12:00 Test Item Value Reference Range Interpretation Comments Results (test code = Reported (08/23/18 Results) 12:12 PM) [facility]
--- NOTE | 2023-06-02 13:21 | RAD REPORT ---
EXAM DESCRIPTION: CT - Abdomen Pelvis Wo Contrast - 06/02/2023 12:46 pm CLINICAL HISTORY: l flank pain COMPARISON: Abdomen Pelvis W Contrast dated 06/29/2022; Abdomen Pelvis W Contrast dated 8; CT ABD PELVIS W CONTRAST dated 06/10/2015 TECHNIQUE: Thin cut axial CT imaging of the abdomen and pelvis was performed without IV contrast. Mu ltiplanar reformats were generated and reviewed. All CT scans are performed using dose optimization technique as appropriate and may include automated exposure control or mA/KV adjustment according to patient size. FINDINGS: No suspicious findings in the lung bases. The liver shows diffuse parenchymal hypoattenuation suggesting steatosis. Adrenal glands, spleen, and pancreas show no suspicious findings. Gallbladder was surgically removed. Symmetric renal contour, without suspicious parenchymal findings within limits of noncontrast techniq ue. No evidence of radiopaque calculi or hydroureteronephrosis. No dilated bowel loops or bowel wall thickening. No free air, free fluid or inflammatory stranding. S mall umbilical hernia containing fat. No suspicious mass or bulky lymphadenopathy. The urinary bladde r is without significant finding. No suspicious bony findings. IMPRESSION: No acute intra-abdominal process. No radiopaque calculi or hydroureteronephrosis. Diffuse hepatic parenchymal hypoattenuation suggesting steatosis. Small umbilical hernia containing fat.
[2023-06-02 13:33] LABS: Absolute Lymphocytes (CBC) 1.2 K/uL (0.7-4.9); Hematocrit 43.9 % (39.6-49.0); Lymphocytes % 7.6 % (15.3-44.8); MCV 84.8 fL (80-100); MPV 9.5 fL (7.6-11.3); Platelets 173 thou/uL (152-406); RBC Red Blood Cell Count 5.17 M/uL (4.33-5.43)
[2023-06-02 13:46] LABS: Bilirubin Total 1.1 mg/dL (0.2-1.0); Potassium 3.9 mEq/L (3.5-5.1); Protein, Total 8.5 g/dL (6.4-8.2)
[2023-06-02] MEDS ORDERED: NA CHLORIDE 0.9% 100 ML ONE (13:55)
[2023-06-02] MEDS ORDERED: PANTOPRAZOLE 40 MG INJ ONE (13:55)
[2023-06-02] MEDS ORDERED: CEFTRIAXONE 2000 MG/VIAL ONE (13:55)
[2023-06-02 14:17] LABS: Protime INR 0.95
[2023-06-02] MEDS ORDERED: NA CHLORIDE 0.9% 1,000 ML ONE (14:45)
[2023-06-02 15:34] LABS: Specific Gravity 1.029 (1.005-1.030); Urine Bacteria <20 /HPF (<20); Urine Bilirubin NEGATIVE (Negative); Urine Blood Trace (Negative); Urine Clarity Clear (Clear); Urine Color Light-Yellow (Yellow); Urine Glucose 4+ (Over) (Negative); Urine Mucus Slight /HPF (None Seen); Urine Protein 1+ (Negative); Urine RBC <5 /HPF (None Seen); Urine Urobilinogen Normal (Normal)
--- NOTE | 2023-06-02 15:55 | EDPHYS ---
Physician Documentation [facility] Name: Rajat Aguero Age: 72 yrs Sex: Male : 1950 Arrival Date: 06/02/2023 Time: 12:11 Bed 4 Private MD: ED Physician Cristian Martines HPI: 06/02 16:46 This 72 yrs old Male presents to ER via Wheelchair with complaints of sent by Dr. rt Duval. 16:46 Patient presents to the ED with left leg pain from PCP for rule out kidney stone versus rt pyelonephritis. Patient related UTI with hematuria in the office. Pain is aching nature, nonradiating. Does report nausea, vomiting, none currently. Denies abdominal pain. Symptoms are aching in nature, moderate severity, no other aggravating or elevating factors.. Historical: - Allergies: 12:35 Codeine (Upset stomach); ph 12:35 Dilaudid (Upset stomach); ph 12:35 Floxin (Upset stomach); ph 12:35 Robaxin (Upset stomach); ph 12:35 Tramadol HCl (Upset stomach); ph - PMHx: 12:35 Cataract; Diabetes - NIDDM; GERD; ph - PSHx: 12:35 cataract surgery; Pineda hip replacements; Cholecystectomy; Left elbow repair; Right ACL ph repair; Right shoulder repair; - Immunization history:: Adult Immunizations unknown. - Social history:: Smoking status: Patient denies any tobacco usage or history of. - Family history:: not pertinent. ROS: 16:46 Constitutional: Negative for fever, chills, and weight loss, Cardiovascular: Negative rt for chest pain, palpitations, and edema, Respiratory: Negative for shortness of breath, cough, wheezing, and pleuritic chest pain, MS/Extremity: Negative for injury and deformity, Skin: Negative for injury, rash, and discoloration, Neuro: Negative for headache, weakness, numbness, tingling, and seizure, Psych: Negative for depression, anxiety, suicide ideation, homicidal ideation, and hallucinations, 16:46 Abdomen/GI: Positive for 16:46 Abdomen/GI: Positive for nausea, Negative for vomiting, 16:46 Back: Positive for pain with movement, flank pain, Exam: 16:46 Constitutional: This is a well developed, well nourished patient who is awake, alert, rt and in no acute distress. Head/Face: Normocephalic, atraumatic. Chest/axilla: Normal chest wall appearance and motion. Nontender with no deformity. No lesions are appreciated. Cardiovascular: Regular rate and rhythm with a normal S1 and S2. No gallops, murmurs, or rubs. Normal PMI, no JVD. No pulse deficits. Respiratory: Lungs have equal breath sounds bilaterally, clear to auscultation and percussion. No rales, rhonchi or wheezes noted. No increased work of breathing, no retractions or nasal flaring. Abdomen/GI: Soft, non-tender, with normal bowel sounds. No distension or tympany. No guarding or rebound. No evidence of tenderness throughout. Skin: Warm, dry with normal turgor. Normal color with no rashes, no lesions, and no evidence of cellulitis. MS/ Extremity: Pulses equal, no cyanosis. Neurovascular intact. Full, normal range of motion. Neuro: Awake and alert, GCS 15, oriented to person, place, time, and situation. Cranial nerves II-XII grossly intact. Motor strength 5/5 in all extremities. Sensory grossly intact. Cerebellar exam normal. Normal gait. Psych: Awake, alert, with orientation to person, place and time. Behavior, mood, and affect are within normal limits. 16:46 Back: Left CVAT, no midline tenderness, Vital Signs: 12:30 BP 161 / 77; Pulse 88; Resp 17; Temp 98(O); Pulse Ox 99% ; rs5 12:33 BP 148 / 75; Pulse 91; Resp 18; Temp 98.1(O); Pulse Ox 97% on R/A; Weight 136.08 kg; ph Height 6 ft. 0 in. ; 13:40 BP 126 / 85; Pulse 90; Resp 18; Pulse Ox 98% on R/A; rs5 14:35 BP 139 / 64; Pulse 87; Resp 17; Pulse Ox 98% on R/A; rs5 15:35 BP 145 / 75; Pulse 84; Resp 17; Pulse Ox 98% on R/A; rs5 16:42 BP 144 / 76; Pulse 82; Resp 16; Pulse Ox 99% on R/A; rs5 17:45 BP 142 / 67; Pulse 84; Resp 17; Pulse Ox 98% on R/A; rs5 12:33 Body Mass Index 40.69 (136.08 kg, 182.88 cm) ph MDM: 12:26 Patient medically screened. rt 16:46 Differential Diagnosis Pyelonephritis, renal colic, sepsis. Data reviewed: vital signs, rt nurses notes, lab test result(s), radiologic studies. Consideration of Admission/Observation Patient was admitted/placed on observation. Management of patient was discussed with the following: Primary Care Provider: Agrees to meet the patient. Independent interpretation of the following test(s) in the Emergency Department CT Scan: My interpretation is No stone seen on interpretation of the CT scan images. Care significantly affected by the following chronic conditions: Diabetes. Counseling: I had a detailed discussion with the patient and/or guardian regarding the historical points, exam findings, and any diagnostic results supporting the discharge/admit diagnosis, lab results, radiology results, the need for further work-up and treatment in the hospital. Response to treatment: the patient's symptoms have mildly improved after treatment. 06/02 12:34 Order name: CBC with Diff; Complete Time: 14:24 rt 06/02 12:34 Order name: CMP; Complete Time: 14:24 rt 06/02 12:34 Order name: Lipase; Complete Time: 14:24 rt 06/02 12:34 Order name: Blood Culture Adult (2) rt 06/02 12:34 Order name: Lactate w/ 2H reflex if indic.; Complete Time: 14:24 rt 06/02 12:34 Order name: Protime (+inr); Complete Time: 14:24 rt 06/02 12:34 Order name: Ptt, Activated; Complete Time: 14:24 rt 06/02 13:53 Order name: Glucose, Ancillary Testing; Complete Time: 14:24 EDMS 06/02 14:25 Order name: UAM; Complete Time: 15:38 rt 06/02 14:25 Order name: Urine Culture rt 06/02 12:34 Order name: CT Abd/Pelvis - Without Contrast; Complete Time: 13:22 rt 06/02 12:34 Order name: EKG; Complete Time: 12:35 rt 06/02 16:18 Order name: Diet Ada 1800 Felipe; Complete Time: 16:19 aa5 06/02 12:34 Order name: IV Saline Lock; Complete Time: 13:19 rt 09/20 12:34 Order name: Labs collected and sent; Complete Time: 13:19 rt 06/02 12:34 Order name: Accucheck; Complete Time: 13:54 rt 06/02 12:34 Order name: Cardiac monitoring; Complete Time: 13:54 rt 06/02 12:34 Order name: EKG - Nurse/Tech; Complete Time: 13:54 rt 06/02 12:34 Order name: IV Saline Lock - Large Bore; Complete Time: 13:19 rt 06/02 12:34 Order name: O2 Per Protocol; Complete Time: 13:19 rt 06/02 12:34 Order name: O2 Sat Monitoring; Complete Time: 13:19 rt 06/02 12:34 Order name: Vital Signs; Complete Time: 13:54 rt Administered Medications: 13:54 Drug: Rocephin - Rocephin (cefTRIAXone) IVPB 2 grams IVPB once over 30 mins; (mix in rs5 100 mL NS) Route: IVPB; Infused Over: 30 mins; Site: right antecubital; 14:19 Follow up: Response: No adverse reaction rs5 13:54 Drug: Pantoprazole IVP 80 mg IVP once Route: IVP; Site: left antecubital; rs5 14:19 Follow up: Response: No adverse reaction rs5 14:36 Drug: NS 0.9% IV 1000 ml IV at 1 bolus Per protocol; 1000 mL bolus Route: IV; Rate: 1 rs5 bolus; Site: left antecubital; 14:45 Follow up: Response: No adverse reaction rs5 Disposition Summary: 06/02/23 15:54 Hospitalization Ordered Notes: Hospitalization Status: Observation rt Provider: Son Duval rt Location: Telemetry/[facility] (observation) rt Condition: Stable rt Problem: new rt Symptoms: have improved rt Bed/Room Type: Standard rt Room Assignment: 208(06/02/23 17:27) ja1 Diagnosis - Pyelonephritis acute rt Forms: - Medication Reconciliation Form rt - SBAR form rt - Leadership Thank You Letter rt Signatures: Dispatcher RenanHoKenia Bai RN RN ph Konrad Boudreaux RN RN ja1 Cristian Martines MD MD rt Kaiden Murillo RN RN rs5 Corrections: (The following items were deleted from the chart) 12:36 12:35 Allergies: Rocephin; ph ph 17:27 15:54 rt ja1
--- NOTE | 2023-06-02 15:55 | ER ---
Nurse's Notes [facility] Name: Rajat Agu[facility] Age: 72 yrs Sex: Male : 1950 Arrival Date: 06/02/2023 Time: 12:11 Bed 4 Private MD: Diagnosis: Pyelonephritis acute Presentation: 06/02 12:33 Chief complaint: Patient states: L back/flank pain that started Wednesday, also reports ph urinary frequency and chills. Coronavirus screen: Vaccine status: Patient reports receiving the 2nd dose of the covid vaccine. Ebola Screen: No symptoms or risks identified at this time. Initial Sepsis Screen: Does the patient meet any 2 criteria? No. Patient's initial sepsis screen is negative. Does the patient have a suspected source of infection? No. Patient's initial sepsis screen is negative. Risk Assessment: Do you want to hurt yourself or someone else? Patient reports no desire to harm self or others. Onset of symptoms was June 02, 2023. 12:33 Method Of Arrival: Wheelchair ph 12:33 Acuity: JOSSY 3 ph Historical: - Allergies: 12:35 Codeine (Upset stomach); ph 12:35 Dilaudid (Upset stomach); ph 12:35 Floxin (Upset stomach); ph 12:35 Robaxin (Upset stomach); ph 12:35 Tramadol HCl (Upset stomach); ph - PMHx: 12:35 Cataract; Diabetes - NIDDM; GERD; ph - PSHx: 12:35 cataract surgery; Pineda hip replacements; Cholecystectomy; Left elbow repair; Right ACL ph repair; Right shoulder repair; - Immunization history:: Adult Immunizations unknown. - Social history:: Smoking status: Patient denies any tobacco usage or history of. - Family history:: not pertinent. Screenin:30 [facility] ED Fall Risk Assessment (Adult) History of falling in the last 3 months, rs5 including since admission Yes- single mechanical fall (1 pt) Confusion or Disorientation No (0 pts) Intoxicated or Sedated No (0 pts) Impaired Gait Yes (1 pt) Mobility Assist Device Used Yes (1 pt) Altered Elimination No (0 pt) Score/Fall Risk Level 3 or more points = High Risk Oriented to surroundings, Maintained a safe environment, Educated pt \T\ family on fall prevention, incl call for assistance when getting out of bed, Assessed \T\ reinforced patient's understanding of fall precautions. 12:30 Abuse screen: Denies threats or abuse. Nutritional screening: No deficits noted. rs5 Tuberculosis screening: No symptoms or risk factors identified. Assessment: 12:30 General: Appears in no apparent distress. comfortable, Behavior is calm, cooperative. rs5 12:30 Pain: Complains of pain in left flank pain Pain radiates to lower back Pain currently rs5 is 5 out of 10 on a pain scale. Quality of pain is described as aching, Pain began 2-3 days ago. Is continuous. Neuro: Level of Consciousness is awake, alert, obeys commands, Oriented to person, place, time, situation. Cardiovascular: Rhythm is regular. Cardiovascular: Heart tones S1 S2 present. Respiratory: Airway is patent Respiratory effort is even, unlabored, Respiratory pattern is regular, symmetrical. Respiratory: Breath sounds are clear bilaterally. GI: Abdomen is round non-distended, Bowel sounds present X 4 quads. : No signs and/or symptoms were reported regarding the genitourinary system. EENT: No signs and/or symptoms were reported regarding the EENT system. Derm: Skin is pink, warm \T\ dry. Musculoskeletal: Range of motion: intact in all extremities. 13:25 Reassessment: No changes from previously documented assessment. rs5 14:20 Reassessment: Patient and/or family updated on plan of care and expected duration. Pain rs5 level reassessed. Patient is alert, oriented x 3, equal unlabored respirations, skin warm/dry/pink. 15:32 Reassessment: Patient and/or family updated on plan of care and expected duration. Pain rs5 level reassessed. Patient is alert, oriented x 3, equal unlabored respirations, skin warm/dry/pink. Pain: Complains of pain in left flank, lower back pain Pain does not radiate. Pain currently is 4 out of 10 on a pain scale. Quality of pain is described as aching, Is continuous. 16:20 Reassessment: No changes from previously documented assessment. rs5 17:30 Reassessment: Patient and/or family updated on plan of care and expected duration. Pain rs5 level reassessed. Patient is alert, oriented x 3, equal unlabored respirations, skin warm/dry/pink. 18:01 Reassessment: Report given to nurse SONJA Rock. rs5 Vital Signs: 12:30 BP 161 / 77; Pulse 88; Resp 17; Temp 98(O); Pulse Ox 99% ; rs5 12:33 BP 148 / 75; Pulse 91; Resp 18; Temp 98.1(O); Pulse Ox 97% on R/A; Weight 136.08 kg; ph Height 6 ft. 0 in. ; 13:40 BP 126 / 85; Pulse 90; Resp 18; Pulse Ox 98% on R/A; rs5 14:35 BP 139 / 64; Pulse 87; Resp 17; Pulse Ox 98% on R/A; rs5 15:35 BP 145 / 75; Pulse 84; Resp 17; Pulse Ox 98% on R/A; rs5 16:42 BP 144 / 76; Pulse 82; Resp 16; Pulse Ox 99% on R/A; rs5 17:45 BP 142 / 67; Pulse 84; Resp 17; Pulse Ox 98% on R/A; rs5 12:33 Body Mass Index 40.69 (136.08 kg, 182.88 cm) ph ED Course: 12:14 Patient arrived in ED. im 12:15 Cristian Martines MD is Attending Physician. rt 12:26 Arm band placed on Patient placed in an exam room, on a stretcher. ll1 12:30 Patient has correct armband on for positive identification. Placed in gown. Bed in low rs5 position. Call light in reach. Side rails up X2. Adult w/ patient. 12:35 Triage completed. ph 12:47 CT Abd/Pelvis - Without Contrast In Process Unspecified. EDMS 13:15 First set of blood cultures drawn by me, Second set of blood cultures drawn by me. ds4 13:19 Blood Culture Adult (2) Sent. ds4 13:20 Lactate w/ 2H reflex if indic. Sent. ds4 13:20 Inserted saline lock: 20 gauge in left antecubital area, using aseptic technique. Blood ds4 collected. 13:22 Inserted saline lock: 22 gauge in right antecubital area, using aseptic technique. rs5 13:54 Kaiden Murillo, SONJA is Primary Nurse. rs5 15:05 Urine Culture Sent. ds4 15:05 UAM Sent. ds4 15:54 Son Duval MD is Hospitalizing Provider. rt 18:01 No provider procedures requiring assistance completed. Patient admitted, IV remains in rs5 place. Administered Medications: 13:54 Drug: Rocephin - Rocephin (cefTRIAXone) IVPB 2 grams IVPB once over 30 mins; (mix in rs5 100 mL NS) Route: IVPB; Infused Over: 30 mins; Site: right antecubital; 14:19 Follow up: Response: No adverse reaction rs5 13:54 Drug: Pantoprazole IVP 80 mg IVP once Route: IVP; Site: left antecubital; rs5 14:19 Follow up: Response: No adverse reaction rs5 14:36 Drug: NS 0.9% IV 1000 ml IV at 1 bolus Per protocol; 1000 mL bolus Route: IV; Rate: 1 rs5 bolus; Site: left antecubital; 14:45 Follow up: Response: No adverse reaction rs5 Medication: 18:01 VIS not applicable for this client. rs5 Outcome: 15:54 Decision to Hospitalize by Provider. rt 18:01 Admitted to Med/surg accompanied by tech, via stretcher, with chart, Report called to rs5 Nurse SONJA Rock 18:01 Condition: stable 18:01 Discharge instructions given to patient, family, Instructed on the need for admit, Demonstrated understanding of instructions, 18:20 Patient left the ED. rs5 Signatures: Dispatcher [employer] EDMS [address] ds4 Kenia Yusuf RN RN Anne Gardiner RN RN ll1 Cristian Martines MD MD rt Kaiden Murillo RN RN rs5 Pam Arroyo Corrections: (The following items were deleted from the chart) 12:36 12:35 Allergies: Rocephin; ph ph 18:18 18:16 BP 161 / 77; Pulse 88bpm; Resp 17bpm; Pulse Ox 99%; Temp 98F Oral; rs5 rs5 18:20 18:16 BP 126 / 85; Pulse 90bpm; Resp 18bpm; Pulse Ox 98% RA; rs5 rs5 18:20 18:17 BP 145 / 75; Pulse 84bpm; Resp 17bpm; Pulse Ox 98% RA; rs5 rs5 18:20 18:17 BP 139 / 64; Pulse 87bpm; Resp 17bpm; Pulse Ox 98% RA; rs5 rs5
[2023-06-02] MEDS ORDERED: ONDANSETRON 4 MG/2 ML VIAL IV PRN (18:37)
[2023-06-02] MEDS: INSULIN -REGULAR HUMAN 50 UNIT/0.5 ML ML SQ SCH ×2 (18:37→21:00)
[2023-06-02] MEDS: NA CHLORIDE 0.9% 1,000 ML IV SCH (18:57)
[2023-06-02] MEDS ORDERED: TEMAZEPAM 15 MG CAP PO PRN (19:44)
[2023-06-02] MEDS: HYDROCODONE/APAP 7.5/325 MG TAB PO PRN ×2 (20:02→23:34)
[2023-06-02] MEDS: ONDANSETRON 4 MG/2 ML VIAL IV PRN ×2 (20:06→23:37)
[2023-06-02] MEDS: CEFTRIAXONE 1,000 MG in NA CHLORIDE 0.9% 50 ML IVPB SCH (20:45)
[2023-06-02 23:58] VITALS: BMI 41.1
[2023-06-03] MEDS: NA CHLORIDE 0.9% 1,000 ML IV SCH ×3 (03:27→21:59)
[2023-06-03] MEDS: PROMETHAZINE INJ 25 MG/ML AMP IV PRN ×2 (03:27→21:57)
[2023-06-03 03:29] LABS: Absolute Lymphocytes (CBC) 1.8 K/uL (0.7-4.9); Hematocrit 38.7 % (39.6-49.0); MCV 84.5 fL (80-100); MPV 9.2 fL (7.6-11.3); Platelets 148 thou/uL (152-406); RBC Red Blood Cell Count 4.58 M/uL (4.33-5.43)
[2023-06-03 03:42] LABS: Albumin 3.2 g/dL (3.4-5.0); Bilirubin Total 0.6 mg/dL (0.2-1.0); Potassium 3.7 mEq/L (3.5-5.1)
[2023-06-03] MEDS: INSULIN -REGULAR HUMAN 50 UNIT/0.5 ML ML SQ SCH ×4 (08:44→20:41)
[2023-06-03] MEDS: CEFTRIAXONE 1,000 MG in NA CHLORIDE 0.9% 50 ML IVPB SCH ×2 (08:53→20:41)
--- NOTE | 2023-06-03 16:27 | PN ---
Date of Progress Note: 06/03/2023 The patient states he feels considerably better today. He still has some left CVA discomfort, especi ally noted when he was walking. He is urinating much more frequently than on admission. His white c ount has dropped to 12,000. Awaiting his culture report. His Rocephin made him somewhat nauseated i nitially, but he seems to be having this dosing well today. We will continue his dose for another 24 hours and assuming that he could tolerate p.o. medications and he has been eating and drinking much better than when he came in and at home, as result he is much more hydrated, he could be discharged. HR/MODL Voice ID: [id number] Report ID: [id number]
[2023-06-03] MEDS: HYDROCODONE/APAP 7.5/325 MG TAB PO PRN (21:57)
[2023-06-04 03:15] LABS: Absolute Lymphocytes (CBC) 1.6 K/uL (0.7-4.9); Lymphocytes % 22.3 % (15.3-44.8); MCV 85.6 fL (80-100); MPV 9.3 fL (7.6-11.3); Platelets 144 thou/uL (152-406); RBC Red Blood Cell Count 4.44 M/uL (4.33-5.43)
[2023-06-04 03:29] LABS: Potassium 3.9 mEq/L (3.5-5.1)
[2023-06-04] MEDS: NA CHLORIDE 0.9% 1,000 ML IV SCH (07:11)
[2023-06-04] MEDS: INSULIN -REGULAR HUMAN 50 UNIT/0.5 ML ML SQ SCH ×2 (08:38→12:18)
[2023-06-04] MEDS: CEFTRIAXONE 1,000 MG in NA CHLORIDE 0.9% 50 ML IVPB SCH (08:39)
[2023-06-04 10:30] VITALS: O2SAT 95
[2023-06-04 11:53] VITALS: BP 153/70; TEMP 97.4
== END 2023-06-04 15:46 | disposition home or self-care (01) ==
LOC: ER 12:11 → ERHOLD 15:56 → 2ND 17:47 → OBSVTOIN 06-04 14:14 → INTOOBSV 06-04 14:14
PROVIDERS: ADMIT Family Medicine; ATTEND Hospitalist
DX: N11.1 Chronic obstructive pyelonephritis (principal); R11.0 Nausea; Z90.49 Acquired absence of other specified parts of digestive tract; Z96.7 Presence of other bone and tendon implants; Z88.6 Allergy status to analgesic agent; Z88.8 Allergy status to other drugs, medicaments and biological substances
CPT/HCPCS: 87040 ×2; 87088; 85025 ×3; 81001; 87086; 80048; 36415 ×2; 85610; 82947 ×8; 83605; 85730; 83690; 80053 ×2; 74176; 99285; J2550 ×2; J1815 ×6; C9113; J2405 ×3; J0696 ×5; J7030 ×6; G0378

== ENCOUNTER → 2023-11-02 | Day surgery (SDC) | payer OTHER, MEDICARE ==
[2023-10-26 09:36] LABS: Absolute Lymphocytes (CBC) 2.1 K/uL (0.7-4.9); Hematocrit 45.7 % (39.6-49.0); Lymphocytes % 30.7 % (15.3-44.8); MPV 9.4 fL (7.6-11.3); Platelets 155 thou/uL (152-406); RBC Red Blood Cell Count 5.38 M/uL (4.33-5.43)
[2023-10-26 09:40] LABS: Protime INR 1.01
--- NOTE | 2023-10-26 09:49 | RAD REPORT ---
EXAM DESCRIPTION: RAD - Chest Pa And Lat (2 Views) - 10/26/2023 9:28 am CLINICAL HISTORY: pre op urolift and space oar Chest pain. COMPARISON: Chest Single View dated 08/18/2020; CHEST PA AND LAT 2 VIEW dated 01/04/2015; CHEST PA AND LAT 2 VIEW dated 12/21/2014; CHEST SINGLE VIEW dated 12/20/2014 FINDINGS: Mild interstitial pulmonary edema suspected. The heart is mildly prominent. No displaced f ractures. IMPRESSION: Mild CHF.
[2023-10-26 09:57] LABS: Potassium 3.8 mEq/L (3.5-5.1)
--- NOTE | 2023-10-28 14:45 | EKG ---
Test Date: 2023-10-26 Test Time: 10:10:00 Computer Operator: BRITTANY MEASUREMENT RESULTS: Intervals: Rate: 80 MD: 158 QRSD: 86 QT: 372 QTc: 429 [place]: P: 42 MD: 158 QRS: 50 T: 48 INTERPRETIVE STATEMENTS: Normal sinus rhythm Normal ECG Compared to ECG 08/18/2020 04:49:29 Atrial premature complex(es) no longer present ST (T wave) deviation no longer present Electronically Signed On 10-28-23 14:42:01 SENSOR TECHNICIAN by Henri Lara
[~2023-11-02] MED LIST: CEFAZOLIN SODIUM 1 GM/VIAL ONE; CODEINE 30MG/APAP 300MG TAB PO PRN; FENTANYL CITR 100 MCG/2 ML ONE; KETOROLAC 30 MG/ML INJ ONE; LIDOCAINE 1% MPF 5 ML VIAL ONE; NA CHLORIDE 0.9% 1,000 ML ONE; ONDANSETRON 4 MG/2 ML VIAL ONE; PHENAZOPYRIDINE 100MG TAB PO ONE; dexAMETHasone 10 MG/ML VIAL ONE; propofoL 200 MG/20 ML VIAL IV ONE
[2023-11-02] MEDS: CEFAZOLIN SODIUM 2 GM/VIAL ONE (07:51)
[2023-11-02] MEDS: FENTANYL CITR 100 MCG/2 ML ONE (08:56)
[2023-11-02] MEDS: KETOROLAC 10 MG TAB PO PRN (10:20)
[2023-11-02] MEDS: PHENAZOPYRIDINE 100MG TAB PO ONE (10:20)
[2023-11-02 12:35] VITALS: BP 164/61; TEMP 98; O2SAT 94
--- NOTE | 2023-11-03 03:26 | OP ---
Date of Procedure: 11/02/2023 Surgeon: FIRDA MAYA Preoperative Diagnoses: 1.Benign prostatic hypertrophy with lower urinary tract obstruction and symptoms. 2.Prostate cancer, suspected high risk. Postoperative Diagnoses: 1.Benign prostatic hypertrophy with lower urinary tract obstruction and symptoms. 2.Prostate cancer, suspected high risk. 3.Meatal stenosis. Principal Procedures: 1.Transrectal ultrasound-guided SpaceOAR gel insertion. 2.UroLift/prostatic urethral lift with 6 implants placed. 3.Urethral dilatation with sounds. Indication For Procedure: Mr. Aguero was seen for a long time by urologist with a diagnosis of low- grade prostate cancer since 2017. While on active surveillance, he underwent an MRI, which showed a lesion suspicious for extraprostatic extension, potentially consistent with high-risk disease. He ul timately elected to proceed with treatment and elected radiation therapy. He was started on Orgovyx androgen deprivation therapy by Dr. Mcintosh, and he was requested to have SpaceOAR gel insertion and fiducial markers. Because he also had obstructive urinary symptoms due to BPH that persisted despit e medical therapy, he was also recommended for definitive surgical management of his obstructive urin ara symptoms by placement of UroLift implants, which would also simultaneously act as fiducial marker s. Procedure In Detail: The patient was consented in the preoperative holding area before being transfe rred to the operative suite where general anesthesia was induced. He was given Ancef 2 g IV antimicr obial prophylaxis, and pneumo boots were provided for DVT prophylaxis. He was placed in the high lit hotomy position, padded and secured to the table appropriately, and his genitalia was elevated out of the perineal area using an Ioban drape. Betadine was used to prep the perineal region after I inser jacinta a transrectal ultrasound probe via his anus into his rectum with ease and under direct visualizat ion ultrasonographically. A stepper device was used to hold the ultrasound probe in the appropriate position, which was targeted in the mid zone of the prostate in the midline. I was able to visualize with the stepper device from the seminal vesicles all the way to the apex and perineal region of the prostate. As a result, we initially targeted in the sagittal plane and inserted the SpaceOAR needle with the bevel facing down via the perineum and guided it using the ultrasound beyond the urogenital diaphragm beneath the urethra and above the rectal hop entering the prerectal fat plane. I was able to navigate it through this prerectal fat plane requiring a slight degree of hydrodissection because of the very narrow space that was available, but ultimately was able to get the needle into the mid portion of the gland from apex to base and situated appropriately in the midline as evidenced axially on ultrasound. I then aspirated and received no blood or succus from the desired implant location. I then connected the SpaceOAR gel components to the needle and slowly injected it, creating a nice b uffer from apex to base between the rectum and the peripheral zone of the prostate beneath the Denon[place] illiers space. The needle was then removed, and we cleansed the patient's perineal region of the Bet adine and repositioned him out of the high lithotomy position into the low standard lithotomy positio n. We then prepped his genitalia using Hibiclens and draped them in standard fashion. Initial attem pt to place the 20-Monegasque UroLift sheath and visual obturator were thwarted by the presence of meatal stenosis; so, I utilized urethral sounds to dilate the meatus and fossa navicularis to 24-Monegasque. I then was able to traverse the urethra into the bladder with ease and decompressed his bladder of flu id and urine. I then refilled the bladder and surveyed it for any signs of papillary mucosal lesion or stone, and none were noted. I then switched the visual obturator for the first implant delivery d evice and an implant and targeted the patient's left lateral wall anterolaterally about 1.5 to 2 cm d istal to the bladder neck opening. In this position, at approximately 2 o'clock, I angled the scope only 5 to 10 degrees laterally against the tissue and pulled the trigger once, deploying the needle t hrough the substance of the prostate. I then angled the scope an additional 15 degrees laterally to compress the tissue and also ensure the needle tip was delivered to the capsular surface of the prost ate. I then pulled the trigger a second time, delivering the capsular tab and partially retracting t he needle. A third pull of the trigger did further retract the needle and tensioned the suture. I lita gallego advanced the scope back toward the midline and then toward the bladder neck approximately 2 to 3 mm until the white line of the monofilament was centered in the delivery bay, and at this point, I pu lled the trigger fourth time delivering the urethral end piece and tailoring the suture. The end pie ce did situate nicely, lateralizing the tissue on the left side at the bladder neck with a nice rim o f prostate tissue between the implant and the entry into the bladder. As a result, I advanced the sc ope back into his bladder and switched it for a new implant, which I then targeted on the patient's r ight side about 1.5 to 2 cm distal to the bladder neck opening at around the 10 o'clock position. Th is also placed the implant in ideal position and nicely opened the bladder neck in that region. I th en turned my attention to the apex and placed an additional implant at the left apex at the level of the verumontanum. On the right side of the apex, there was less intraluminal intrusion of prostate t issue coming into the channel, so I placed that implant approximately 2 to 3 mm more proximal to the level of the verumontanum, ultimately beautifully lateralizing the tissue in that location. I then s urveyed the channel created, and while the beginnings of an anterior channel were visible, there was still some residual lateral lobar intrusion that seemed to largely emanate from the patient's left la teral wall. So I targeted that tissue in the mid zone of the prostate between the apex and the base implants, again placing an implant in that location. Survey of the channel created again using the v isual obturator after 5 implants had been placed revealed a slight degree of residual lateral lobar i ntrusion that was still coming from the patient's left lateral wall. As a result, I targeted this ti ssue, which was between the mid apical implant and the base implant, and I was able to beautifully la teralize that tissue, ultimately creating a beautiful continuous anterior channel with the bladder co mpletely decompressed and no significant oozing of blood was observed. As a result, I retrograde ryne led his bladder with saline and removed the scope. I then placed an 18-Monegasque coude catheter into hi s bladder with ease and placed about 15 cc of sterile water in the balloon. The drainage of fluid an d urine was completely clear; so he was connected to a leg bag. He was then taken out of the lithoto my position, awakened from general anesthesia, transferred to a stretcher, and then transferred to [facility] recovery room in good condition. Complications: None. Discharge Disposition: He will be standard UroLift pathway with a planned followup in about 1 month' s time. He will be given a voiding trial prior to discharge from the recovery room today, and if he is successful, he will go home without the catheter. If unsuccessful, the catheter may need to be re placed and he will be instructed on how to conduct a voiding trial at home tomorrow morning at 7 a.m. Additionally, once his acute urinary symptoms celio following the UroLift, which typically takes ab out 1 week, he could certainly plan to begin definitive radiation therapy thereafter, I would recomme nd no sooner than 2-3 weeks from of today's surgery. FREDDIE/PATRICIA Voice ID: [id number] Report ID: [id number]
== END | disposition home or self-care (01) ==
LOC: OR 06:30
PROVIDERS: ATTEND Urology
PROC: 0T7D8DZ Dilation of Urethra with Intraluminal Device, Via Natural or Artificial Opening Endoscopic (ICD-10-PCS; principal; 2023-11-02 07:30)
PROC: 0VH43YZ Insertion of Other Device into Prostate and Seminal Vesicles, Percutaneous Approach (ICD-10-PCS; 2023-11-02 07:30)
DX: N40.1 Benign prostatic hyperplasia with lower urinary tract symptoms (principal); C61 Malignant neoplasm of prostate; N13.8 Other obstructive and reflux uropathy
CPT/HCPCS: 93005; 87088; 85025; 87086; 80048; 36415; 85610; 82947 ×2; 71046; 52441; 52442 ×5; 55874; J2704; J2001; J3010 ×2; J1100; J2405; J7030; J0690